=== PATIENT | female | born 1935 | race Two or more races ===

== ENCOUNTER → 2024-07-01 | Outpatient (CLI) | payer MEDICARE, MEDICAID, SELFPAY ==
[2024-07-01 15:17] LABS: Basophils % (Auto) 0 % (0-2.5); Eosinophils # (Auto) 0.2 Thou/mm3 (0.0-0.5); Eosinophils % (Auto) 2 % (0-10); Hemoglobin 10.6 g/dL (12.0-16.0); Immature Granulocytes % (Auto) 1 % (0-0); Lymphocytes # (Auto) 1.1 Thou/mm3 (1.0-4.8); Lymphocytes % (Auto) 12 % (10-50); Mean Corpuscular HGB Conc 33.1 g/dl (31.0-37.0); Mean Corpuscular Hemoglobin 31.2 pg (25.0-35.0); Mean Corpuscular Volume 94 fL (80-100); Monocytes % (Auto) 11 % (0-12); Neutrophils % (Auto) 74 % (37-80); Nucleated Red Blood Cell % 0 /100 WBC (0); Platelet Count 229 Thou/mm3 (140-440); RDW Standard Deviation 50.4 fL (36.4-46.3); White Blood Count 9.4 Thou/mm3 (3.6-11.0)
[2024-07-01 15:38] LABS: Iron 51 mcg/dL (50-170)
[2024-07-01 19:01] LABS: Alanine Aminotransferase 24 U/L (10-49); Albumin, Serum 3.9 gm/dL (3.4-4.8); Alkaline Phosphatase 104 U/L (46-116); Anion Gap 8 (7-16); Aspartate Amino Transferase 34 U/L (0-34); BUN/Creatinine Ratio 33 Ratio (12-20); Bilirubin,Direct < 0.1 mg/dL (0.0-0.3); Bilirubin,Total 0.2 mg/dL (0.3-1.2); Blood Urea Nitrogen 39 mg/dL (9-23); Calcium 9.2 mg/dL (8.3-10.6); Carbon Dioxide 27.2 mMol/L (20.0-31.0); Cardiac Risk Estimate 1.7 RATIO (3.7-5.6); Chloride 106 mMol/L (98-107); Cholesterol 141 mg/dL (132-200); Creatinine (Component) 1.2 mg/dL (0.6-1.3); Glucose 108 mg/dL (74-106); HDL Cholesterol 85 mg/dL (40-60); LDL Cholesterol,Calculated 44 mg/dL (0-130); Osmolality,Calculated 291 (275-295); Potassium 4.8 mMol/L (3.4-5.1); Sodium 141 mMol/L (136-145); Total Protein 6.9 gm/dL (5.7-8.2); Triglycerides 61 mg/dL (30-150); eGFR 44 See Note
== END | disposition home or self-care (01) ==
PROVIDERS: PCP Family Medicine; Referring Provider Family Medicine; Visit Provider Family Medicine
DX: Z00.00 Encounter for general adult medical examination without abnormal findings (principal); I12.9 Hypertensive chronic kidney disease with stage 1 through stage 4 chronic kidney disease, or unspecified chronic kidney disease; N18.9 Chronic kidney disease, unspecified; D50.9 Iron deficiency anemia, unspecified
CPT/HCPCS: 36415; 80048; 80061; 80076; 83540; 85025

== ENCOUNTER 2024-08-06 11:33 | Emergency (ER) | payer MEDICARE, MEDICAID, SELFPAY ==
--- NOTE | 2024-08-06 11:39 | XR_ITS ---
Examination: Abdomen AP single view Technique: AP portable supine abdomen, single view Exam date and time: August 06, 2024 1139 hrs. Indications: Chest pain coughing, unknown position gastrostomy tube Findings: Contrast opacifies the gastrostomy tube and stomach, no leakage of contrast material Impression: Satisfactory position feeding tube
--- NOTE | 2024-08-06 11:39 | PD.EDADULT ---
ED General RME/HPI General Chief complaint: General Adult/Misc Complain Stated complaint: GTUBE REPLACEMENT Time Seen by Provider: 08/06/24 11:36 Arrival date/time: 08/06/24 11:33 No CC: Bleeding around G-tube HPI noticed this morning by family members presents to the ER via EMS who reports stable vital signs. The patient is somnolent, nonverbal. Small amount of bleeding noticed around the Kaplan catheter in the G-tube stoma. Review the medical record show that the G-tube has been replaced with a Kaplan catheter in January 2024. With several replacements prior to that as well. Related Data Home Medications ?Medication ?Instructions ?Recorded ?Confirmed raloxifene 60 mg tablet (Evista) 60 mg feeding tube QAM #0 tabs 10/14/16 12/30/23 simvastatin 40 mg tablet (Zocor) 40 mg feeding tube QPM #0 tabs 10/14/16 12/30/23 gabapentin 300 mg capsule 300 mg PO TID 09/28/22 12/30/23 mirtazapine 15 mg tablet 15 mg feeding tube BID 02/22/23 12/30/23 tramadol 50 mg tablet 100 mg feeding tube Q12H 02/22/23 12/30/23 donepezil 5 mg tablet 10 mg PO QDAY 05/08/23 12/30/23 ferrous sulfate 325 mg (65 mg 325 mg feeding tube QDAY 05/08/23 12/30/23 iron) tablet (FeroSul) misoprostol 200 mcg tablet 200 mcg feeding tube TID 05/08/23 12/30/23 amlodipine 5 mg tablet 2.5 mg PO QDAY 12/23/23 12/30/23 ascorbic acid (vitamin C) 500 mg 500 mg PO QDAY 12/23/23 12/30/23 tablet (Vitamin C) brexpiprazole 0.5 mg tablet 0.5 mg feeding tube QPM 12/23/23 12/30/23 (Rexulti) buspirone 15 mg tablet 15 mg feeding tube TID 12/23/23 12/30/23 fenofibrate 54 mg tablet 54 mg feeding tube QPM 12/23/23 12/30/23 trazodone 50 mg tablet 50 mg feeding tube HS 12/23/23 12/30/23 suvorexant 15 mg tablet (Belsomra) 15 mg PO QDAY 12/30/23 12/30/23 Previous Rx's ?Medication ?Instructions ?Recorded apixaban 5 mg (74 tabs) tablets in 5 mg PO BID #74 tabs 05/23/23 a dose pack ([employer] DVT-PE Treat 30D Start) Held on 12/31/23. Instructions: Resume on 01/01/24. Please hold for 1 day. pantoprazole 40 mg tablet,delayed 40 mg PO QDAY #30 tabs 05/23/23 release (Protonix) Allergies Allergy/AdvReac Type Severity Reaction Status Date / Time No Known Allergies Allergy Verified 12/22/23 16:50 Review of Systems Review of Systems ROS Unobtainable: unobtainable due to mental status Past Medical History Past Medical History NEUROLOGIC: Positive Dementia; Negative Neurological Disorders, Cerebrovascular Accident, Transient Ischemic Attacks (TIA), Alzheimer's Disease, Parkinson's Disease, Brain Tumor, Meningitis, Seizures, Epilepsy, Multiple Sclerosis, Cerebral Palsy, Amyotrophic Lateral Sclerosis (ALS/Marcie Gehrig's), Guillain-[place] Syndrome, Spina Bifida, Paralysis, Peripheral Neuropathy, Bhardwaj's Palsy, Subdural Hematoma, Migraine, Head Trauma, Spinal Cord Injury or Traumatic Brain Injury CARDIAC: Positive Cardiac Disorders, Atherosclerotic Heart Disease, Hypercholesterolemia, Edema (BILAT FEET) and Hypertension; Negative Myocardial Infarction, Cardiac Arrhythmia, Atrial Fibrillation, Angina, Heart Murmur, Coronary Artery Disease, Peripheral Vascular Disease, Aneurysm, Congestive Heart Failure, Congenital Heart Disease, Valvular Heart Disease, Rheumatic Fever, Cardiomyopathy, Pericarditis, Cellulitis, Deep Vein Thrombosis, Hypotension or Varicose Veins RESPIRATORY: Positive Bronchitis and Pneumonia; Negative Chronic Obstructive Pulmonary Disease (COPD), Asthma, Emphysema, Pulmonary Fibrosis, Cystic Fibrosis, Tuberculosis, Pulmonary Embolism, Pulmonary Edema or Sleep Apnea GASTROINTESTINAL: Positive Gastrointestinal Disorders, Gastrointestinal Bleed, Diverticulitis, Ulcer and Gastroesophageal Reflux Disease; Negative Hepatitis, Cirrhosis, Pancreatitis, Celiac Disease, Gall Bladder Disease, Esophageal Varices, Crenshaw's Esophagus, Colitis, Ulcerative Colitis, Diverticulosis, Colorectal Cancer, Irritable Bowel, Crohn's Disease, Obstructive Bowel, Hiatal Hernia, Hemorrhoids or Obesity GENITOURINARY: Positive Genitourinary Disorders (UTI); Negative Renal Disease, Kidney Stones, Polycystic Kidney Disease, Neurogenic Bladder, Inguinal Hernia, Dialysis or Benign Prostatic Hyperplasia REPRODUCTIVE: Positive Previous Pregnancies; Negative Breast Cancer, Endometriosis, Genital Herpes, Gonorrhea, Pelvic Inflammatory Disease, Syphilis or Uterine Prolapse MUSCULOSKELETAL: Positive Musculoskeletal Disorders, Arthritis, Osteoporosis and Fractures (hip sx); Negative Muscular Dystrophy, Myasthenia Gravis, Marfan's Syndrome, Bone Cancer, Rheumatoid Arthritis, Degenerative Disk Disease, Gout, Scoliosis, Carpal Tunnel Syndrome, Fibromyalgia, Degenerative Joint Disease, Osteomyelitis or Poliovirus ENT: Positive Glaucoma, Blind (LEGALLY, SEES OUTLINES) and Deafness ([place]); Negative Cataracts, Retinal Detachment, Macular Degeneration, Ear Infection, Head Trauma or Eye Prosthesis ENDOCRINE: Negative Endocrine Disorders, Diabetes Mellitus Type 1, Diabetes Mellitus Type 2, Hypoglycemia, [place]'s Syndrome, Wharton's Disease, Hyperthyroidism, Hypothyroidism, Parathyroid Disease, Pituitary Disease, Systemic Lupus Erythematosus, Syndrome of Inappropriate Antidiuretic Hormone (SIADH), Adrenal Disease or Graves' Disease HEMATOLOGIC: Positive Blood Disorders and Anemia (IRON); Negative Leukemia, Hemophilia, Thalassemia, Sickle Cell Disease or Clotting Problems PSYCHO/SOCIAL: Positive Depression, Anxiety and Behavior Problems; Negative Psychiatric Problems, Schizophrenia, Recreational Drug Use, Bipolar Disorder, Self-Mutilation, Attention Deficit Disorder, Attention Deficit Hyperactivity Disorder, Depression, Post Traumatic Stress Disorder or Eating Disorder OTHER HISTORY: Positive Hospitalization, Shingles, Falls, Blood Transfusions, Chicken Pox and Cancer; Negative Autoimmune Disease, Down Syndrome, Autism, Developmental Delay, Blood Transfusion Reaction, Anesthesia Reactions, Organ Transplant, Chemotherapy, Radiation Therapy, Hyperbaric Therapy, MRSA, VRSA, Vancomycin-Resistant Enterococci, Human Immunodeficiency Virus (HIV), Measles, Mumps, Rubella (Irish Measles), Pertussis, Clostridium Difficile, Breast Cancer, Cervical Cancer, Colorectal Cancer, Lung Cancer or Ovarian Cancer Family History FAMILY HISTORY: Negative Family Psychiatric Problems, Family Respiratory Disorders, Family Cardiac Disorders, Family Gastrointestinal Problems, Family Cancer, Family Surgery or Family Anesthesia Reaction Surgical History SURGICAL: Positive Abdominal Surgery; Negative Cardiac Surgery, Open Heart Surgery, Coronary Artery Bypass Graft, Valve Replacement, Vascular Surgery, Coronary Stent, Cardiac Catheterization, Pacemaker, Angiogram, Auto Implanted Cardiovert Defib, Carotid Endarterectomy, Endocrine Surgery, Thyroidectomy, Ear Surgery, Tympanostomy Tube, Eye Surgery, Nose Surgery, Oral Surgery, Tonsillectomy, Adenoidectomy, Cochlear Implant, Corneal Transplant, Throat Surgery, Tracheostomy, Gastric Bypass Surgery, Gastrostomy, Bowel Surgery, Nephrectomy, Transurethral Resection, Joint Replacement, Amputation, Open Reduction Internal Fixation, Arthroscopy, Neurologic Surgery, Brain Shunt, Mastectomy, Lumpectomy, Hysterectomy, Tubal Ligation, Section, Vasectomy or Organ Transplant Social History SMOKING STATUS: Never smoker SECOND HAND EXPOSURE: No SUBSTANCE USE: does not use ED Exam Narrative Physical exam: [General: Appears not in any acute distress Head normocephalic HEENT: Within acceptable limits Neck is supple nontender Chest equal chest rise nontender to palpation Respiratory: Clear to auscultation no wheezes crackles or rubs CV: Rate rhythm is regular no murmurs rubs or clicks Abdomen is soft nontender, center upper stoma has a 18 Kaplan emerging from the stoma, there is a small amount of bleeding with a small adipose ball emerging on the left side of the Kaplan catheter. No surrounding erythema or edema Back: No CVA tenderness no spinous process tenderness from cervical spine thoracic and lumbar spine Skin: Intact no petechiae rash induration ulceration or crepitus Extremities: Moving all extremity against resistance cap refill less than 2 seconds neurosensory intact Neuro: Awake alert oriented x3 Glascow coma 15 no focal deficits] Course Quality Measures none Orders Category Date Time Status Apply Skin Barrier Cream BID Care 08/06/24 12:14 Active US venous doppler LE RT Stat Exams 08/06/24 12:06 Completed XR abdomen 1V Stat Exams 08/06/24 11:39 Completed XR abdomen 1V Stat Exams 08/06/24 15:01 Taken CBC Stat Lab 08/06/24 12:50 Received Urinalysis, C/S if Indicated Stat Lab 08/06/24 12:58 Completed Vital Signs Vital signs: Vital Signs Temperature 97.7 F 08/06/24 11:59 Pulse Rate 81 08/06/24 11:59 Respiratory Rate 16 08/06/24 11:59 Blood Pressure 165/86 H 08/06/24 11:59 Pulse Oximetry (%) 100 08/06/24 11:59 Oxygen Delivery Method Room Air 08/06/24 11:59 Procedures -ED Procedure Comment Verbal consent from the power of compliance attorney cannot obtained. Patient paid in the supine position. Old G-tube Kaplan, balloon had already been previously deflated when removed only fragments of the balloon hanging onto the catheter tip. Site was then cleaned, new 16 [place] Kaplan catheter advanced in the stomach without complications gastric contents retrieved. Patient tolerated procedure well dressing applied. MDM Patient data External records reviewed:: [facility] previous records and EMS form Clinical information provided by:: EMS Social determinants that could affect healthcare access:: none Patient has the following chronic illnesses:: On Eliquis anemia hypertension How is presenting disease/condition affected by chronic disease/condition?: uneffected by Evaluation data The following diagnostics were reviewed and interpreted by me:: lab results and radiology exam(s) Lab and/or radiology exams considered but not ordered:: Urine is negative Abdominal x-ray shows that the G-tube is in satisfactory position Interpretation Summary: This Kaplan catheter has been in there since January 2024 providing G-tube nourishment for the patient, the care provider of the patient is insisting to be changed out because it looks black . Although it is in proper position I will change it out. No other acute finding. Repeat ultrasound ultrasound shows that the new G-tube is in satisfactory position as interpreted by me. Medications Medications considered but not ordered:: None Medication administrations:: None Consultations Consultation(s) initiated? (list below): No Diagnosis Differential Diagnosis ED Complaint MDM: G-tube failure G2 occlusion UTI Most likely diagnosis given after review of the tests above:: G-tube changed out Admission Indicated Admission indicated?: not indicated Explain why admission is indicated or not indicated:: Stable for discharge Admission Request Was there a request for admission?: No Disposition Plan Disposition Plan: Discharge Discharge Attestation Discharge Attestation: The patient and all family members were given an opportunity to ask questions and understood the discharge instructions. Discharge instructions specifically effects, indications for sooner follow up or return to the emergency department, and the expected course of current diagnosis. Patient condition: Stable Medical Decision Making Differential Diagnosis Differential Diagnosis: G-tube failure G2 occlusion UTI Lab Data 08/06/24 12:50 Labs: Lab Results 08/06/24 Range/Units 12:58 Ur Collection Type Catheter Urine Color Lt-Yellow (Lt Yel-Yel) Urine Clarity Clear (Clear/Hazy) Urine pH 6.5 (5.0-7.0) Ur Specific [place] 1.006 (1.001-1.035) Urine Protein Negative (Neg - Trace) Urine Glucose (UA) Trace (Negative) Urine Ketones Negative (Negative) Urine Blood Negative (Negative) Urine Nitrite Negative (Negative) Urine Bilirubin Negative (Negative) Urine Urobilinogen (Auto) Negative (0.0-1.0) mg/dL Ur Leukocyte Esterase Negative (Negative) Urine RBC < 1 (0-3) /hpf Urine WBC 4 (0-5) /hpf Ur Squamous Epith Cells < 1 (0-5) /hpf Urine Bacteria None (None) Ur Culture Indicated? Not Indicated Discharge Plan Plan Patient Disposition: HOME (Self Care) Patient condition on transfer: Stable Prescriptions/Referrals Prescriptions/Med Rec: No Action simvastatin [Zocor] 40 MG tablet 40 mg feeding tube QPM Qty: 0 raloxifene [Evista] 60 MG tablet 60 mg feeding tube QAM Qty: 0 tramadol 50 mg tablet 100 mg feeding tube Q12H mirtazapine 15 mg tablet 15 mg feeding tube BID donepezil 5 mg tablet 10 mg PO QDAY ferrous sulfate [FeroSul] 325 mg (65 mg iron) Tablet 325 mg feeding tube QDAY misoprostol 200 mcg tablet 200 mcg feeding tube TID Eliquis DVT-PE Treat 30D Start 5 mg (74 tabs) tablets,dose pack 5 mg PO BID Qty: 74 0RF Rx Instructions: ON HOLD TILL 12/31/23, DUE TO KNEE SWELLING take 10 mg po bid for 7 days, then 5 mg po bid pantoprazole [Protonix] 40 mg tablet,delayed release (DR/EC) 40 mg PO QDAY Qty: 30 0RF gabapentin 300 mg Capsule 300 mg PO TID Rx Instructions: taken PRN for pain per daughter trazodone 50 mg tablet 50 mg feeding tube HS ascorbic acid (vitamin C) [Vitamin C] 500 mg Tablet 500 mg PO QDAY buspirone 15 mg tablet 15 mg feeding tube TID fenofibrate 54 mg tablet 54 mg feeding tube QPM Rexulti 0.5 mg tablet 0.5 mg feeding tube QPM amlodipine 5 mg tablet 2.5 mg PO QDAY Belsomra 15 mg tablet 15 mg PO QDAY Referrals: Gilbert Hendricks MD [Primary Care Provider] - In 1 week Problem List Clinical Impression: Gastrostomy tube dysfunction Patient/Caregiver Discharge Instructions Print Language: Mohawk Stand Alone Forms: [employer] Award Info., Work/School Release, Patient Portal Info Letter PA/RN NEUROLOGY Supervising Physician PA/RN NEUROLOGY Supervising Physician: Alphonse Galvin ENP
[2024-08-06 11:47] VITALS: BMI 22.2
[2024-08-06 11:59] VITALS: BP 165/86; PULSE 81; RESP 16; TEMP 36.5; O2SAT 100
--- NOTE | 2024-08-06 12:06 | XR_ITS ---
Examination: Duplex scan of the lower extremity, unilateral right Date and time of exam: August 06, 2024 1402 hrs. Indications: Right side pain and swelling beginning 4 days ago Technique: Duplex scan of the extremity veins using B-mode/grayscale imaging and Doppler spectral analysis and color flow Attention is directed to internal echogenicity, compression and augmentation involving these veins, color flow assessment, spectral analysis Findings: Major deep venous structures in the extremity demonstrate normal course and caliber. There is no evidence of deep vein thrombosis. Normal color flow and spectral analysis Impression: Negative for DVT..
[2024-08-06 13:26] LABS: Collection Type, Urine Catheter
[2024-08-06 13:32] LABS: Bilirubin,Urine Negative (Negative); Blood,Urine Negative (Negative); Clarity,Urine Clear (Clear/Hazy); Color,Urine Lt-Yellow (Lt Yel-Yel); Culture Indicated,Urine Not Indicated; Glucose, Urine Trace (Negative); Ketones,Urine Negative (Negative); Leukocyte Esterase,Urine Negative (Negative); Nitrite,Urine Negative (Negative); PH,Urine 6.5 (5.0-7.0); Protein,Urine Negative (Neg - Trace); RBC,Urine < 1 /hpf (0-3); Specific Gravity,Urine 1.006 (1.001-1.035); Squamous Epithelial Cell,Urine < 1 /hpf (0-5); Urobilinogen,Urine Negative mg/dL (0.0-1.0); WBC,Urine 4 /hpf (0-5)
[2024-08-06 13:46] VITALS: BP 152/72; PULSE 73; RESP 18; TEMP 36.9; O2SAT 95
--- NOTE | 2024-08-06 15:01 | XR_ITS ---
Examination: Abdomen AP single view Technique: AP portable supine abdomen, single view Exam date and time: August 06, 2024 1519 hrs. Indications: Unknown position gastrostomy tube Findings: Contrast opacifies gastrostomy tube stomach and bowel, no leakage of contrast material noted Impression: Gastrostomy tube in stomach satisfactory position
--- NOTE | 2024-08-06 15:08 | PC.NURSE ---
pt able to ambulate without assistance. pt tolerated well. made aware
[2024-08-06 15:33] VITALS: BP 130/66; PULSE 76; RESP 18; TEMP 36.8; O2SAT 100
[2024-08-06 15:35] LABS: Basophils % (Auto) 0 % (0-2.5); Eosinophils # (Auto) 0.2 Thou/mm3 (0.0-0.5); Eosinophils % (Auto) 1 % (0-10); Hematocrit 22.1 % (36.0-46.0); Immature Granulocytes % (Auto) 2 % (0-0); Immature Granulocytes Auto 0.32 Thou/mm3 (0.00-0.00); Lymphocytes # (Auto) 1.3 Thou/mm3 (1.0-4.8); Lymphocytes % (Auto) 9 % (10-50); Mean Corpuscular Hemoglobin 31.2 pg (25.0-35.0); Mean Corpuscular Volume 94 fL (80-100); Monocytes # (Auto) 1.5 Thou/mm3 (0.0-0.8); Monocytes % (Auto) 11 % (0-12); Neutrophils # (Auto) 10.6 Thou/mm3 (1.8-7.7); Neutrophils % (Auto) 76 % (37-80); Nucleated Red Blood Cell # 0.12 Thou/mm3 (0.00-0.00); Nucleated Red Blood Cell % 1 /100 WBC (0); Platelet Count 138 Thou/mm3 (140-440); RDW Standard Deviation 50.4 fL (36.4-46.3); Red Blood Count 2.34 Miln/mm3 (4.00-5.20)
[2024-08-06 15:38] LABS: Hemoglobin 7.3 g/dL (12.0-16.0)
== END 2024-08-06 15:43 | disposition home or self-care (01) ==
PROVIDERS: Registered Nurse General Practice; Emergency Provider Emergency Medicine; PCP Family Medicine
DX: K94.23 Gastrostomy malfunction (principal); R40.0 Somnolence; M79.89 Other specified soft tissue disorders; M79.661 Pain in right lower leg
CPT/HCPCS: 43762; 36415; 74018; 81001; 85025; 93971; 99284

== ENCOUNTER 2024-08-22 10:05 | Inpatient (IN) | payer MEDICARE, MEDICAID, SELFPAY ==
[2024-08-22] VITALS (65 sets, daily range): BP systolic 84–155; BP diastolic 29–95; PULSE 48–103; RESP 11–29; TEMP 33.4–36.7; O2SAT 93–100; BMI 25.2
[2024-08-22 10:44] LABS: Basophils % (Auto) 0 % (0-2.5); Eosinophils % (Auto) 0 % (0-10); Immature Granulocytes % (Auto) 3 % (0-0); Immature Granulocytes Auto 0.44 Thou/mm3 (0.00-0.00); Lymphocytes # (Auto) 0.7 Thou/mm3 (1.0-4.8); Lymphocytes % (Auto) 4 % (10-50); Mean Corpuscular HGB Conc 28.8 g/dl (31.0-37.0); Mean Corpuscular Hemoglobin 31.1 pg (25.0-35.0); Mean Corpuscular Volume 108 fL (80-100); Monocytes # (Auto) 1.5 Thou/mm3 (0.0-0.8); Monocytes % (Auto) 10 % (0-12); Neutrophils # (Auto) 12.9 Thou/mm3 (1.8-7.7); Neutrophils % (Auto) 83 % (37-80); Nucleated Red Blood Cell # 0.53 Thou/mm3 (0.00-0.00); Nucleated Red Blood Cell % 3 /100 WBC (0); Platelet Count 141 Thou/mm3 (140-440); RDW Standard Deviation 82.2 fL (36.4-46.3); Red Blood Count 1.22 Miln/mm3 (4.00-5.20); White Blood Count 15.6 Thou/mm3 (3.6-11.0)
[2024-08-22 10:48] LABS: Beta Hydroxybutyrate 0.4 mmol/L (<0.6)
[2024-08-22 10:50] LABS: Hematocrit 13.2 % (36.0-46.0); Hemoglobin 3.8 g/dL (12.0-16.0)
--- NOTE | 2024-08-22 10:55 | PD.EDNV ---
Nausea/Vomit./Diarrhea-RME/HPI General Chief complaint: Nausea/Vomiting/Diarrhea Stated complaint: N/V Arrival date/time: 08/22/24 10:05 RME / HPI RME / HPI Narrative: Patient 88-year-old demented lady who is G-tube dependent comes in with nausea vomiting diarrhea. No other information was initially present. At 1145 I daughter is present tells me the patient vomited a clot of blood. That she is a full code. And that she recent had her feeding tube replaced and that the tube was black. Patient response to Hungarian-language with the [id number] present but unable to provide any history. Related Data Home Medications ?Medication ?Instructions ?Recorded ?Confirmed raloxifene 60 mg tablet (Evista) 60 mg feeding tube QAM #0 tabs 10/14/16 12/30/23 simvastatin 40 mg tablet (Zocor) 40 mg feeding tube QPM #0 tabs 10/14/16 12/30/23 gabapentin 300 mg capsule 300 mg PO TID 09/28/22 12/30/23 mirtazapine 15 mg tablet 15 mg feeding tube BID 02/22/23 12/30/23 tramadol 50 mg tablet 100 mg feeding tube Q12H 02/22/23 12/30/23 donepezil 5 mg tablet 10 mg PO QDAY 05/08/23 12/30/23 ferrous sulfate 325 mg (65 mg 325 mg feeding tube QDAY 05/08/23 12/30/23 iron) tablet (FeroSul) misoprostol 200 mcg tablet 200 mcg feeding tube TID 05/08/23 12/30/23 amlodipine 5 mg tablet 2.5 mg PO QDAY 12/23/23 12/30/23 ascorbic acid (vitamin C) 500 mg 500 mg PO QDAY 12/23/23 12/30/23 tablet (Vitamin C) brexpiprazole 0.5 mg tablet 0.5 mg feeding tube QPM 12/23/23 12/30/23 (Rexulti) buspirone 15 mg tablet 15 mg feeding tube TID 12/23/23 12/30/23 fenofibrate 54 mg tablet 54 mg feeding tube QPM 12/23/23 12/30/23 trazodone 50 mg tablet 50 mg feeding tube HS 07/14/24 07/21/24 suvorexant 15 mg tablet (Belsomra) 15 mg PO QDAY 12/30/23 12/30/23 Previous Rx's ?Medication ?Instructions ?Recorded apixaban 5 mg (74 tabs) tablets in 5 mg PO BID #74 tabs 05/23/23 a dose pack (CamGSM DVT-PE Treat 30D Start) Held on 12/31/23. Instructions: Resume on 01/01/24. Please hold for 1 day. pantoprazole 40 mg tablet,delayed 40 mg PO QDAY #30 tabs 05/23/23 release (Protonix) Allergies Allergy/AdvReac Type Severity Reaction Status Date / Time No Known Allergies Allergy Verified 12/22/23 16:50 Review of Systems Review of Systems ROS Unobtainable: unobtainable due to mental status (Patient is demented) Past Medical History Past Medical History NEUROLOGIC: Positive Dementia CARDIAC: Positive Cardiac Disorders, Atherosclerotic Heart Disease, Hypercholesterolemia, Edema and Hypertension RESPIRATORY: Positive Bronchitis and Pneumonia GASTROINTESTINAL: Positive Gastrointestinal Disorders, Gastrointestinal Bleed, Diverticulitis, Ulcer, Hemorrhoids and Gastroesophageal Reflux Disease GENITOURINARY: Positive Genitourinary Disorders REPRODUCTIVE: Positive Previous Pregnancies MUSCULOSKELETAL: Positive Musculoskeletal Disorders, Arthritis, Osteoporosis and Fractures ENT: Positive Glaucoma, Blind and Deafness HEMATOLOGIC: Positive Blood Disorders and Anemia PSYCHO/SOCIAL: Positive Depression, Anxiety and Behavior Problems OTHER HISTORY: Positive Hospitalization, Shingles, Falls, Blood Transfusions, Chicken Pox and Cancer Family History FAMILY HISTORY: Negative Family Psychiatric Problems, Family Respiratory Disorders, Family Cardiac Disorders, Family Gastrointestinal Problems, Family Cancer, Family Surgery or Family Anesthesia Reaction Surgical History SURGICAL: Positive Abdominal Surgery (G-TUBE) Social History SMOKING STATUS: Unknown if ever smoked SECOND HAND EXPOSURE: No SUBSTANCE USE: does not use ED Exam Narrative Physical exam: Physical Exam: General: The vital signs were reviewed. Patient is opens eyes responds to Hungarian make some words that are hard to understand she interacts and engages her environment. The patient is non-toxic, in no apparent distress and appears healthy with a patent airway, no respiratory distress and has no apparent circulatory problems. Head & Scalp: Normocephalic, atraumatic. Face: Appears normal and is without lesions, deformity. Ears: Left external pinna appears normal. Right external pinna appears normal. Eyes: The sclera is anicteric. No obvious photophobia. The Left and Right Orbit/Lid/Conjunctiva appears normal without swelling, discoloration or injection. Nose: The nose is without deformity, discharge or tenderness; Throat: Appears normal. The mucous membranes are pink and moist without exudates, redness or mass seen. The tongue appears normal. Neck: The neck is supple and no apparent mass or adenopathy. Chest: The chest wall is normal in size and symmetry and has no chest wall tenderness or crepitus. The patient displays normal ventilator effort without retractions, accessory muscle use and has adequate air movement bilaterally with no wheezes and no rales. Cardiovascular: Regular rate and rhythm; No murmurs, rubs, or gallops; Gastrointestinal: The abdomen appears normal. Feeding tube is present and the site looks clean. No obvious hernias or mass. The abdomen is soft and benign, non-distended, with no pain, no guarding and no rebound tenderness. Bowel sounds are present and normal sounding. No CVA tenderness. Genitourinary: Rectal showed hematochezia and some pasty cream that is on her bottom side. There is not a large volume of blood present there was strongly guaiac positive. Back/Spine: Normal inspection Extremities/Musculoskeletal/lymphatic: The bilateral upper and lower extremities are warm. There is no evidence of arterial insufficiency. There is no evidence of venous insufficiency/edema. The patient spontaneously moves bilateral upper and lower extremities with no pain and no limitation of movement. There is no apparent, injury or trauma. Skin: The skin is warm, dry and intact. No rashes. No petechia. No purpura. No abnormal bruising. The color is appropriate with no cyanosis. Mental status/Psychiatric: Mental status is baseline dementia Neurological: The patient is awake, alert, interactive, moaning and mumbling intermittently The gait, station and balance were not tested due to patient is normally bedbound. Course Quality Measures none Orders Category Date Time Status Bedside Blood Glucose NOW Care 08/22/24 10:28 Active EKG (ED ONLY) *Do not use* NOW Care 08/22/24 11:19 Completed In and Out Catheter X1 Care 08/22/24 10:54 Completed Insert IV NOW Care 08/22/24 10:20 Active Miscellaneous Nursing Order X1 Care 08/22/24 11:55 Active Transfuse,blood/blood products NEEDED Care 08/22/24 10:55 Active Consult to Gastroenterology Stat Cons 08/22/24 11:[address] chest abdomen pelvis wo Stat Exams 08/22/24 11:55 Ordered EKG (ED Only) Stat Exams 08/22/24 11:19 Draft XR chest 1V portable Stat Exams 08/22/24 11:55 Completed BNP [B-Type Natriuretic Peptide] Stat Lab 08/22/24 10:33 Completed Beta Hydroxybutyrate Stat Lab 08/22/24 10:33 Completed Blood Culture (Lab) Stat Lab 08/22/24 11:13 Received CBC Stat Lab 08/22/24 10:33 Completed CBC Stat Lab 08/22/24 11:13 Completed Comprehensive Metabolic Panel Stat Lab 08/22/24 10:33 Completed Ferritin Stat Lab 08/22/24 10:33 Completed Folate Stat Lab 08/22/24 10:55 Completed Iron Stat Lab 08/22/24 10:33 Completed Lactate (Lactic Acid) Stat Lab 08/22/24 10:33 Completed PT [Prothrombin Time with INR] Stat Lab 08/22/24 10:33 Completed PTT [Partial Thromboplastin Time] Stat Lab 08/22/24 10:33 Completed Packed Cells [Red Blood Cells] Stat Lab 08/22/24 11:13 Results Path Review Blood Smear Stat Lab 08/22/24 10:33 Completed Procalcitonin Stat Lab 08/22/24 10:33 Completed Total Iron Binding Capacity Stat Lab 08/22/24 10:33 Completed Type and Screen Stat Lab 08/22/24 11:13 Results Urinalysis Stat Lab 08/22/24 11:01 Completed Urine Culture Stat Lab 08/22/24 11:01 Received Vitamin B12 Stat Lab 08/22/24 10:55 Completed Pantoprazole Inj [Protonix Inj] Med 08/22/24 12:14 Discontinued 40 mg IVP X1 ONE Ringers Lactated 1000 ml [Lactated Ringers] 1,000 ml Med 08/22/24 11:56 Discontinued IV 2,000 mls/hr cefTRIAXone [Rocephin] 1,000 mg Med 08/22/24 11:54 Discontinued SODIUM CHLORIDE 0.9% (Popper) [Ns 0.9% (P)] 50 ml IV X1 Vital Signs Vital signs: Vital Signs Blood Pressure 155/63 H 08/22/24 10:22 Pulse Oximetry (%) 100 08/22/24 10:22 Pulse ox is 100% on 2L nasal cannula which is adequate. Nausea/Vomiting/Diarrhea MDM Narrative MDM Narrative:: Patient 88-year-old lady who comes in vomiting blood nausea vomiting who is bedbound with a G-tube who is white count came back at 14.6 hemoglobin is 3.7 MCV is high at 112. Therefore she has a severe sodium is 130 potassium is 6.0 chloride 101 CO2 is 18.1 anion gap is 11 BUN is elevated 90 creatinine is 2.7 consistent with acute kidney injury. Glucose elevated 461 osmolality is high at 308 lactic acid elevated 5.4. Procalcitonin slightly elevated 0.0 0.56. Urinalysis 77 white cells. A twelve-lead EKG was done which reveals a sinus bradycardia rate [address] elevation CO seen. There is a right bundle branch pattern in V1. Because of the hematochezia and the severe anemia I called Dr. Arjun PORTILLO on-call and he will be consulting. Also patient has a UTI and technically could be septic since the lactic acid is elevated. Go ahead and give her a couple liters of fluid while awaiting antibiotics to cover the UTI. Also septic alert was called in a delayed fashion. I then spoke with Dr. Vera the hospitalist who will be admitting. Dr. Vera came down saw the patient and they will be admitting. PT came back greater than 63 and she evidently is on blood thinners. Asked the nurse to contact Dr. Vera to address this. Patient data External records reviewed:: [facility] previous records Clinical information provided by:: EMS and family Social determinants that could affect healthcare access:: other (specify) (Dementia G-tube feed dependent) Patient has the following chronic illnesses:: Dementia CHF How is presenting disease/condition affected by chronic disease/condition?: exacerbated by Evaluation data The following diagnostics were reviewed and interpreted by me:: EKG tracing(s) (See MDM) and other (specify) (See MDM for discussion of labs and x-ray) Lab and/or radiology exams considered but not ordered:: None Interpretation Summary: See MDM above Medications / Prescriptions Medications / Prescriptions considered but not ordered:: See MDM Medication administrations:: Medication Administration History Dextrose (Dextrose 50%-Water Inj 50 Ml Syringe) 50 ml IV Q15MIN PRN PRN Reason: BG <50 OR BG <70 & pt unresponsive Stop: 09/21/24 12:22 Dextrose (Dextrose 50%-Water Inj 50 Ml Syringe) 25 ml IV Q15MIN PRN PRN Reason: BG 50-70 responsive npo pt Stop: 09/21/24 12:25 Glucagon (Glucagon Inj 1 Mg Vial) 1 mg IM Q15MIN PRN PRN Reason: BG <70, and no IV access Dextrose (D10w 1000 Ml) 1,000 mls @ 100 mls/hr IV .Q10H MANUEL Stop: 08/22/24 22:29 Ceftriaxone Sodium 1,000 mg/ (Sodium Chloride) 50 mls @ 100 mls/hr IV QDAY MANUEL Stop: 08/30/24 08:59 Lactated Ringer's (Lactated Ringers) 1,000 mls @ 999 mls/hr IV .Q1H1M ONE Stop: 08/22/24 15:09 Albumin Human (Albuminar-25 Ivpb) 25 gm in 100 mls @ 100 mls/min IV PRN PRN PRN Reason: DIALYSIS Insulin Glargine (Insulin Glargine (Lantus) 5 Unit/0.05 Ml (Per 5 Units)) 10 unit SC HS MANUEL Stop: 09/21/24 20:59 Insulin Human Lispro (Insulin Lispro (Admelog) 1 Unit/0.01 Ml Unit) 0 unit SC Q6H MANUEL; Protocol Stop: 09/21/24 12:29 Pantoprazole Sodium (Pantoprazole Inj 40 Mg Vial) 40 mg IVP Q12HR MANUEL Stop: 09/21/24 20:59 Discontinued Medications Albuterol/Ipratropium (Albuterol/Ipratropium (Duoneb) Rt Leni 3 Ml Nebu) 10 ml INH X1 ONE Stop: 08/22/24 12:27 Last Admin: 08/22/24 12:56 Dose: 10 ml Documented By: HALIE Calcium Gluconate (Calcium Gluconate 10% Inj 1 Gm/10 Ml Vial) 1 gm IV X1 ONE Stop: 08/22/24 12:27 Last Admin: 08/22/24 13:56 Dose: 1 gm Documented By: DB Dextrose (Dextrose 50%-Water Inj 50 Ml Syringe) 25 ml IV Q15MIN PRN PRN Reason: BG 50-70 responsive npo pt Stop: 09/21/24 12:22 Dextrose (Dextrose 50%-Water Inj 50 Ml Syringe) 50 ml IV X1 ONE Stop: 08/22/24 12:27 Last Admin: 08/22/24 13:52 Dose: 50 ml Documented By: RSOALBA Glucagon (Glucagon Inj 1 Mg Vial) 1 mg IM Q15MIN PRN PRN Reason: BG <70, and no IV access Ceftriaxone Sodium 1,000 mg/ (Sodium Chloride) 50 mls @ 100 mls/hr IV X1 ONE Stop: 08/22/24 12:23 Last Admin: 08/22/24 14:59 Dose: 100 mls/hr Documented By: ROSALBA Lactated Ringer's (Lactated Ringers) 1,000 mls @ 2,000 mls/hr IV .Q30M ONE Stop: 08/22/24 12:25 Last Admin: 08/22/24 13:21 Dose: 2,000 mls/hr Documented By: ROSALBA Insulin Human Regular (Insulin Hum Regular 1 Unit/0.01 Ml (Per Unit)) 0 unit SC Q6H MANUEL; Protocol Stop: 09/21/24 12:29 Insulin Human Regular (Insulin Hum Regular 1 Unit/0.01 Ml (Per Unit)) 5 unit IV X1 ONE Stop: 08/22/24 12:27 Last Admin: 08/22/24 13:27 Dose: Not Given Documented By: ROSALBA Non-Admin Reason: Cancelled by Provider Insulin Human Regular (Insulin Hum Regular 1 Unit/0.01 Ml (Per Unit)) 10 unit IV X1 ONE Stop: 08/22/24 13:26 Last Admin: 08/22/24 13:51 Dose: 10 unit Documented By: ROSALBA Co-signed By: KALPANA Pantoprazole Sodium (Pantoprazole Inj 40 Mg Vial) 40 mg IVP X1 ONE Stop: 08/22/24 12:15 Last Admin: 08/22/24 14:07 Dose: 40 mg Documented By: ROSALBA Sodium Bicarbonate (Sodium Bicarb Inj 8.4% 1 Meq/Ml 50 Ml Vial) 50 meq IV X1 ONE Stop: 08/22/24 12:27 Last Admin: 08/22/24 13:56 Dose: 50 meq Documented By: ROSALBA Sodium Bicarbonate (Sodium Bicarb Inj 8.4% Syr 50 Ml Syringe) 50 ml IV X1 ONE Stop: 08/22/24 13:39 Last Admin: 08/22/24 13:58 Dose: Not Given Documented By: ROSALBA Non-Admin Reason: Duplicate Medication on eMAR See above Consultations Consultation(s) initiated? (list below): Yes Consultation #1 (Physician, Specialty, Details): I spoke with GI Dr. Díaz as noted above. Consultation #2 (Physician, Specialty, Details): I spoke with hospitalist Dr. Vera as noted above. Diagnosis Nausea Differential Diagnosis: other (GI bleed ulcers colitis, urinary tract infection) Most likely diagnosis given after review of the tests above:: Patient has vomiting diarrhea for multiple possible causes with hematochezia severe anemia acute renal failure or acute kidney injury and elevated lactic acid. Admission Indicated Admission indicated?: indicated Admission Request Was there a request for admission?: Yes Admission Attestation Admission request attestation: Discussed case with [] from Hospitalist service regarding admission. Discussed patients ED course, exam findings, labs, and radiology results. The Hospitalist [agrees,declines] to accept the patient for admission. Disposition Plan Disposition Plan: Admit Critical Care Time Critical Care Time Critical Care Time: Yes Total Critical Care Time (min.): 45 Attestation: The high probability of sudden, clinically significant deterioration in the patient's condition required the highest level of my preparedness to intervene urgently. The services I provided to this patient were to treat and/or prevent clinically significant deterioration. Services included the following: chart data review, reviewing nursing notes and/or old charts, documentation time, health analytics consultant collaboration regarding findings and treatment options, medication orders and management, direct patient care, vital sign assessments and ordering, interpreting and reviewing diagnostic studies and lab tests. Aggregate critical care time includes only time during which I was engaged in work directly related to the patient's care, as described above, whether at bedside or elsewhere in the Emergency Department. It did not include time spent performing other reported procedures or the services of residents, students, nurses or physician assistants. Discharge Plan Plan Patient Disposition: Admit Acute Care w/in Hospital Disposition Comment: Hospitalist admit Dr. Díaz to consult Problem List Clinical Impression: Severe anemia, Acute kidney injury, Urinary tract infection, Elevated lactic acid level, Hematochezia, Dementia, Gastrostomy tube dependent, Congestive heart failure, Anemia, macrocytic
[2024-08-22 10:59] LABS: Lactate (Lactic Acid) 5.4 mMol/L (0.4-2.0)
[2024-08-22 11:07] LABS: Collection Type, Urine Catheter
[2024-08-22 11:15] LABS: Bacteria,Urine Rare; Bilirubin,Urine Negative (Negative); Blood,Urine Negative (Negative); Clarity,Urine Turbid (Clear/Hazy); Color,Urine Yellow (Lt Yel-Yel); Glucose, Urine Negative (Negative); Hyaline Casts,Urine 1 /hpf (0-1); Ketones,Urine Negative (Negative); Leukocyte Esterase,Urine Positive (Negative); Nitrite,Urine Negative (Negative); Protein,Urine Trace (Neg - Trace); RBC,Urine 3 /hpf (0-3); Specific Gravity,Urine 1.016 (1.001-1.035); Squamous Epithelial Cell,Urine 1 /hpf (0-5); WBC,Urine 77 /hpf (0-5)
[2024-08-22 11:19] LABS: Alanine Aminotransferase 52 U/L (10-49); Albumin, Serum 2.9 gm/dL (3.4-4.8); Albumin/Globulin Ratio 1.1 (1.2-2.2); Alkaline Phosphatase 135 U/L (46-116); Anion Gap 11 (7-16); Aspartate Amino Transferase 58 U/L (0-34); BUN/Creatinine Ratio 33 Ratio (12-20); Bilirubin,Total 1.1 mg/dL (0.3-1.2); Blood Urea Nitrogen 90 mg/dL (9-23); Calcium 8.2 mg/dL (8.3-10.6); Calcium (Corrected) 9.1 mg/dL (8.5-10.1); Carbon Dioxide 18.1 mMol/L (20.0-31.0); Chloride 101 mMol/L (98-107); Creatinine (Component) 2.7 mg/dL (0.6-1.3); Estimated Creatinine Clearance 12.8 mL/min (>60); Globulin 2.7 gm/dL (2.3-3.5); Osmolality,Calculated 308 (275-295); Procalcitonin 0.56 ng/ml (0.0-0.49); Sodium 130 mMol/L (136-145); Total Protein 5.6 gm/dL (5.7-8.2); eGFR 17 See Note
--- NOTE | 2024-08-22 11:19 | EKG_ITS ---
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
[2024-08-22 11:20] LABS: B-Type Natriuretic Peptide 391 pg/mL (0-100)
[2024-08-22 11:22] LABS: Glucose 461 mg/dL (74-106)
[2024-08-22 11:26] LABS: Basophils % (Auto) 0 % (0-2.5); Eosinophils % (Auto) 0 % (0-10); Immature Granulocytes % (Auto) 2 % (0-0); Immature Granulocytes Auto 0.33 Thou/mm3 (0.00-0.00); Lymphocytes # (Auto) 0.6 Thou/mm3 (1.0-4.8); Lymphocytes % (Auto) 4 % (10-50); Mean Corpuscular HGB Conc 28.2 g/dl (31.0-37.0); Mean Corpuscular Hemoglobin 31.6 pg (25.0-35.0); Mean Corpuscular Volume 112 fL (80-100); Monocytes # (Auto) 1.4 Thou/mm3 (0.0-0.8); Monocytes % (Auto) 10 % (0-12); Neutrophils # (Auto) 12.3 Thou/mm3 (1.8-7.7); Neutrophils % (Auto) 84 % (37-80); Nucleated Red Blood Cell # 0.45 Thou/mm3 (0.00-0.00); Nucleated Red Blood Cell % 3 /100 WBC (0); Platelet Count 127 Thou/mm3 (140-440); RDW Standard Deviation 82.3 fL (36.4-46.3); Red Blood Count 1.17 Miln/mm3 (4.00-5.20); White Blood Count 14.6 Thou/mm3 (3.6-11.0)
[2024-08-22 11:37] LABS: Hematocrit 13.1 % (36.0-46.0); Hemoglobin 3.7 g/dL (12.0-16.0)
--- NOTE | 2024-08-22 11:55 | XR_ITS ---
Examination: CT chest, without intravenous contrast. CT abdomen, without intravenous contrast. CT pelvis, without intravenous contrast. 2-D sagittal and coronal reconstructions. 3-D reconstructions. Date and time of exam:August 22, 2024 at 11:30 PM Indications gastrointestinal bleeding today CTDI vol (mgy) 11 DLP (MGycm)7 Technique: Multiple CT images, 3.0 mm slice thickness, obtained chest, abdomen, pelvis, with the high-resolution 64 slice scanner.. Sagittal and coronal 2-D reconstructions are obtained. 3-D reconstructions Low dose protocols were performed. One or more of the following dose reduction techniques were used; automated exposure control, adjustment of the mA and/or KV according to patient size, use of iterative reconstruction technique. Findings: No thoracic aortic tumors dilatation Pulmonary artery segments are not enlarged No pneumonia, significant vascular congestion with small pleural effusions Stool versus Absent gallbladder, common bile duct 10 mm Liver irregular in contour, anasarca Feeding tube in stomach No hydronephrosis Normal appendix Aorta normal size Diffuse wall thickening involving the colon No diverticulitis Rectal tube Urinary bladder contracted around a Kaplan catheter Significant osteopenia Impression: Mild heart failure Cirrhosis versus primary hepatocellular disease, anasarca Extrahepatic biliary tract dilatation, recommend hepatic sonography follow-up Diffuse hepatic colopathy
--- NOTE | 2024-08-22 11:55 | XR_ITS ---
EXAMINATION: XR chest 1V portable ORDERING PROVIDER: Otilio Fermin MD HISTORY: SOB TECHNIQUE: 2 portable AP radiograph of the chest. COMPARISON: 12/21/2023, chest radiographs. FINDINGS: Lines and Tubes: Overlying monitoring leads. Lungs: Increased interstitial markings. No consolidation. Linear airspace markings right lateral lower lung in the expected region of the minor fissure. Pleura: No pneumothorax. As above. Cardiomediastinal Silhouette: Moderate cardiomegaly. Uncoiled aorta. Soft Tissues/Bones: Probable gastrostomy tube. Right upper quadrant surgical clips. Interval healing changes of malalignment left midclavicular fracture. Moderate dextroconvex curvature of the lumbar spine. IMPRESSION: Positive fluid balance with probable trace fluid in the right minor fissure. Congestive heart failure pattern.
[2024-08-22 12:02] LABS: Ferritin 382 ng/mL (7.3-270.7); Iron 44 mcg/dL (50-170); Total Iron Binding Capacity 342 mcg/dL (250-425)
[2024-08-22 12:10] LABS: Folate > 24.00 ng/mL (>5.38); Vitamin B12 > 2000 pg/mL (211-911)
[2024-08-22] MEDS: ALBUTEROL/IPRATROPIUM (Duoneb) RT SOL 3 ML NEBU 10 ML INH (12:56)
[2024-08-22 13:13] LABS: Potassium 6.3 mMol/L (3.4-5.1)
[2024-08-22 13:19] LABS: Misc Send Out* See Sep Rpt
[2024-08-22] MEDS: RINGERS LACTATED 1000 ML 1,000 ML 2000 ML IV (13:21)
[2024-08-22 13:38] LABS: Reflex Lactate? Y
[2024-08-22] MEDS: INSULIN HUM REGULAR 1 UNIT/0.01 ML (PER UNIT) 10 UNIT IV ×2 (13:51→17:43)
[2024-08-22] MEDS: DEXTROSE 50%-WATER INJ 50 ML SYRINGE IV (13:52)
[2024-08-22] MEDS: SODIUM BICARB INJ 8.4% 1 mEq/ML 50 ML VIAL 50 MEQ IV (13:56)
[2024-08-22] MEDS: CALCIUM GLUCONATE 10% INJ 1 GM/10 ML VIAL IV (13:56)
[2024-08-22] MEDS: PANTOPRAZOLE INJ 40 MG VIAL IVP (14:07)
[2024-08-22 14:09] LABS: Prothrombin Time > 63.0 Seconds (9.0-12.2)
[2024-08-22 14:12] LABS: Beta Hydroxybutyrate 0.4 mmol/L (<0.6)
[2024-08-22 14:13] LABS: Path Review Blood Smear Sent to Pathologist
[2024-08-22 14:15] LABS: Lactic Acid, 3 HR 5.1 mMol/L (0.4-2.0)
--- NOTE | 2024-08-22 14:19 | PC.CC ---
Patient is a 88 year old female who presents to the Emergency Department for GI Bleed/Hematochezia. [employer] student completed assessment with daughter in law, Kenisha Blanca ), who was at beside as patient is not alert and oriented. Daughter in law confirmed information on demographics. She stated the patient ambulates using a wheelchair and is currently on a feeding tube. She stated the patient currently lives with her , Chaparro, but she is the one that helps the patient complete their ADL's. The patients primary care provider is Dr. Gilbert Hendricks and pharmacy [facility] preference is [facility]. Upon discharge patient plans to return home. social services analyst will follow up with any discharge needs.
--- NOTE | 2024-08-22 14:51 | ESHP_ITS ---
<Statement entered by Colby Kahn MD - 08/22/24 23:06> This patient is a 68-year-old female with past medical history of CAD, PE on Eliquis, hypertension, hyperlipidemia, wheelchair-bound, history of dementia, generalized anxiety disorder presented with altered mental status, hemoptysis, possible vomiting of blood and hematochezia x 1 day ago associated with NO urine output. Patient's megwfeuw-my-zne was present at bedside reported the patient was feeling weakness and had productive cough. She was prescribed Lasix by her PCP a day ago after which she did not make enough urine. Patient was also having bright red blood however PEG tube was clean and dry. She does have sacral decubitus ulcer. Patient has been taking multiple medications for pain and anxiety as well for blood pressure control. Patient's ftmeuzsm-jj-anv reported that patient has been having loose stools more than 5 episodes a day due to her tube feeding formula fiber plus which was recently placed with another formula. -->She was found to have critical anemia with hemoglobin 3.3 and was transfused 4 units PRBC and 2 L LR x 1. GI was consulted for further recommendations and Protonix was started every 12 hourly. Eliquis was held as patient was taking it for PE. Head CT without contrast was ordered to evaluate for acute encephalopathy. -->Additionally patient was found to have critical hyperkalemia, lactic acidosis and NAGMA. Despite hyperkalemia cocktail including regular insulin, calcium gluconate, sodium bicarbonate and breathing treatment it did not improve and patient was not making urine therefore temporary Vas-Cath was placed and port crane operator was consulted who recommended to proceed with temporary dialysis for ARF with acidemia and electrolyte imbalance with no urine output. Anticipating correction with dialysis. -->Patient had significantly elevated blood glucose around 461 therefore additional regular insulin 10 units IV x 1 was given along with insulin sliding scale and basal insulin. --> Patient was started on IV ceftriaxone 1 g once daily for urinary tract infection. Will follow-up with blood cultures/urine cultures and MRSA screen. --> Patient was also found to have pulmonary edema on chest x-ray expecting improvement with dialysis. Ordered chest PT and will consider getting echocardiogram. --> Holding Eliquis as patient has a history of PE. --> Holding home medications given patient came with altered mental status. --> If patient's MAP/blood pressure drop below 65, ICU team is aware and patient will be upgraded to ICU --> For hypothermia Byron hugger was placed. --> For PEG tube feeding dietitian has been consulted. I saw and examined the patient, and I agree with current management stated by Dr Miky MD,PGY1. Plan of care was discussed with the attending physician and resident physician. Disclaimer: Despite multiple revisions, due to the dictation software being used, the document bellow may not be free of grammatical errors including phonetic/typographic errors. However, this does not deter from our commitment to providing health care in the patient's best interest in mind. Dr. Femi MD, PGY 2 Documentation for date of: 08/22/24 HPI History of Present Illness Chief complaint: AMS History of present illness: Ms. Blanca is a 88 year old female with past medical history significant for hypertension, hyperlipidemia, history of pulmonary embolism on Eliquis 5 mg, dementia, insomnia and generalized weakness (wheelchair-bound) presented to the ED due to altered mental status, nausea vomiting and diarrhea with multiple episodes of hematochezia. Due to patient's altered mental status all of the history is obtained from patient's indvekvf-jf-elo who is at bedside. Patient lives with her and is wheelchair-bound at baseline and family members throughout the day helps her with ADL. Patient has been coughing for the past 1 week and the PCP had started her on Lasix which did not alleviate her cough patient continued to have worsening cough throughout the week and today patient was having multiple episodes of vomiting and during one of the episodes of vomiting patient coughed up a blood clot. Patient's granddaughter yesterday also noted 2 episodes of epistaxis and this morning 1 episode of epistaxis which resolved after putting pressure on it. Today patient also complained of severe abdominal pain and had several episodes of diarrhea which was blood tinged [id number] stated that patient has had that bloodstained diarrhea for a week while but she related to the ulcers and diaper rash that she always has with open wounds but did not realize that the blood was in the stool. Patient denied any chest pain palpitation or dizziness. On 06 August patient had a fall but did not hit her head stated she fell on her butt when she tried to grab something off of her wheelchair. ED course Vitals: blood pressure is 155/63, pulse 67, respirations 22 and temperature 92.1 . Bear hugger was placed due to hypothermia patient is saturating on 2 L oxygen via oxymask Labs: WBC 14.6, hemoglobin 3.7, hematocrit 13.1, platelet 127, PT above 63, PTT 56, sodium 130, potassium 6.0, bicarb 18.1, anion gap 11, BUN 90, creatinine 2.7, GFR 17, glucose 461, lactic acid 5.4, iron 44, ferritin 382, AST 58, ALT 52, BNP 391, Pro-Bob 0.56, beta hydroxybutyrate 0.4 Images EKG: Sinus bradycardia and right bundle branch block CXR: Positive fluid balance with probable trace fluid in the right minor fissure, Congestive heart failure pattern. PMH:hypertension, hyperlipidemia, history of pulmonary embolism on Eliquis 5 mg, dementia, insomnia and generalized weakness (wheelchair-bound) PSH:appendectomy ,cataract surgery, PEG Tube (place in 2023) SH:not obtainable due to pt's AMS Home meds: Simvastatin, raloxifene, tramadol, famotidine, mirtazapine, donepezil, ferrous sulfate 325, misoprostol, megestrol, docusate sodium, memantine, Eliquis, pantoprazole, gabapentin, trazodone, ascorbic acid, buspirone, fenofibrate, rexulti, amlodipine Review of Systems Review of Systems Systems Reviewed: All systems reviewed, normal except as documented Past Medical History Past Medical History NEUROLOGIC: Positive Dementia CARDIAC: Positive Cardiac Disorders, Atherosclerotic Heart Disease, Hypercholesterolemia, Edema and Hypertension RESPIRATORY: Positive Bronchitis and Pneumonia GASTROINTESTINAL: Positive Gastrointestinal Disorders, Gastrointestinal Bleed, Diverticulitis, Ulcer, Hemorrhoids and Gastroesophageal Reflux Disease GENITOURINARY: Positive Genitourinary Disorders REPRODUCTIVE: Positive Previous Pregnancies MUSCULOSKELETAL: Positive Musculoskeletal Disorders, Arthritis, Osteoporosis and Fractures ENT: Positive Glaucoma, Blind and Deafness HEMATOLOGIC: Positive Blood Disorders and Anemia PSYCHO/SOCIAL: Positive Depression, Anxiety and Behavior Problems OTHER HISTORY: Positive Hospitalization, Shingles, Falls, Blood Transfusions, Chicken Pox and Cancer Family History FAMILY HISTORY: Negative Family Psychiatric Problems, Family Respiratory Disorders, Family Cardiac Disorders, Family Gastrointestinal Problems, Family Cancer, Family Surgery or Family Anesthesia Reaction Surgical History SURGICAL: Positive Abdominal Surgery (G-TUBE) Social History SMOKING STATUS: Unknown if ever smoked SECOND HAND EXPOSURE: No SUBSTANCE USE: does not use Exam Vital Signs Temp Pulse Resp BP Pulse Ox O2 Del Method O2 Flow Rate 94.6 F L 92 18 92/39 L 100 Nasal Cannula 2 08/22/24 14:45 08/22/24 14:45 08/22/24 14:45 08/22/24 14:45 08/22/24 14:45 08/22/24 10:41 08/22/24 14:45 Narrative Exam GENERAL: A&Ox0 elderly ill appearing female, somolent NEURO: unable to asses due to mental status HEENT: Atraumatic, Normocephalic. mucous membranes moist. Eyes open, symmetrical, & clear HEART: Normal Heart Sounds LUNGS: Clear to auscultation with no wheezing or crackles. ABDOMEN: soft, non-distended, non-tender, bowel sounds heard, no guarding or rebound tenderness, PEG tube in place SKIN: No Rash or ecchymoses, decubitus sacral ulcer EXTREMITIES: No edema, tenderness, able to move all 4 extremities, pedal pulses palpated, multiple bruising from fall Results: Labs 08/25/24 05:52 08/25/24 05:52 Labs: Short CBC 08/22/24 08/22/24 Range/Units 10:33 11:13 WBC 15.6 H 14.6 H (3.6-11.0) Thou/mm3 Hgb 3.8 L* 3.7 L* (12.0-16.0) g/dL Hct 13.2 L* 13.1 L* (36.0-46.0) % Plt Count 141 127 L (140-440) Thou/mm3 BMP 08/22/24 08/22/24 10:33 12:47 Sodium 130 L Potassium 6.0 H 6.3 H* Chloride 101 Carbon Dioxide 18.1 L BUN 90 H Creatinine 2.7 H Glucose 461 H* Calcium 8.2 L Liver Function 08/22/24 Range/Units 10:33 Total Bilirubin 1.1 (0.3-1.2) mg/dL AST 58 H (0-34) U/L ALT 52 H (10-49) U/L Alkaline Phosphatase 135 H (46-116) U/L Albumin 2.9 L (3.4-4.8) gm/dL Urine 08/22/24 Range/Units 11:01 Urine Color Yellow (Lt Yel-Yel) Urine Clarity Turbid A (Clear/Hazy) Urine pH 5.0 (5.0-7.0) Ur Specific [place] 1.016 (1.001-1.035) Urine Protein Trace (Neg - Trace) Urine Glucose (UA) Negative (Negative) Quality Measures Quality Measures VTE prophylaxis (sCDs) Advance care planning discussed with:: other Medications Home Medications and Allergies Home Medications ?Medication ?Instructions ?Recorded ?Confirmed ?Type raloxifene 60 mg tablet (Evista) 60 mg feeding tube QA M #0 tabs 10/14/16 08/24/24 History simvastatin 40 mg tablet (Zocor) 40 mg feeding tube QP M #0 tabs 10/14/16 08/24/24 History gabapentin 300 mg capsule 300 mg PO TID 09/28/2208/24 History mirtazapine 15 mg tablet 15 mg feeding tube QPM 02/2208/24/24 History tramadol 50 mg tablet 100 mg feeding tube Q12H 08/24/24 History donepezil 5 mg tablet 10 mg PO QDAY 05/08/2308/24 History ferrous sulfate 325 mg (65 mg 325 mg feeding tube QDAY 05/08/23 08/24/24 History iron) tablet (FeroSul) misoprostol 200 mcg tablet 200 mcg feeding tube TID 08/24/24 History amlodipine 5 mg tablet 2.5 mg PO QDAY 12/23/2308/09 History ascorbic acid (vitamin C) 500 mg 500 mg PO QDAY 08/24/24 History tablet (Vitamin C) brexpiprazole 0.5 mg tablet 0.5 mg feeding tube QPM 08/24/24 History (Rexulti) buspirone 15 mg tablet 15 mg feeding tube TID 12/2208/24/24 History fenofibrate 54 mg tablet 54 mg feeding tube .qpmac 08/24/24 History trazodone 50 mg tablet 50 mg feeding tube HS 08/24/24 History suvorexant 15 mg tablet (Belsomra) 20 mg PO QDAY 12/2908/24/24 History apixaban 5 mg tablet (Eliquis) 5 mg PO Q12H 08/24/24 0 08/24/24 History brexpiprazole 2 mg tablet (Rexulti) 2 mg PO HS 5 08/24/24 History famotidine 20 mg tablet 20 mg PO QDAY 08/24/2408/24 History furosemide 20 mg tablet 20 mg PO QDAY PRN fluid over load 08/24/24 08/24/24 History hydrochlorothiazide 12.5 mg capsule 12.5 mg PO .@1200 08/24/24 08/24/24 History memantine 10 mg tablet 10 mg PO BID 08/24/24 History metoprolol succinate 25 mg 25 mg PO QDAY 08/24/2408/09 History tablet,extended release 24 hr Allergies Allergy/AdvReac Type Severity Reaction Status Date / Time No Known Allergies Allergy Verified 12/22/23 16:50 Visit Medications Dextrose (Dextrose 50%-Water Inj 50 Ml Syringe) 50 ml IV Q15MIN PRN PRN Reason: BG <50 OR BG <70 & pt unresponsive Stop: 09/21/24 12:22 Dextrose (Dextrose 50%-Water Inj 50 Ml Syringe) 25 ml IV Q15MIN PRN PRN Reason: BG 50-70 responsive npo pt Stop: 09/21/24 12:25 Glucagon (Glucagon Inj 1 Mg Vial) 1 mg IM Q15MIN PRN PRN Reason: BG <70, and no IV access Dextrose (D10w 1000 Ml) 1,000 mls @ 100 mls/hr IV .Q10H MANUEL Stop: 08/22/24 22:29 Ceftriaxone Sodium 1,000 mg/ (Sodium Chloride) 50 mls @ 100 mls/hr IV QDAY MANUEL Stop: 08/30/24 08:59 Lactated Ringer's (Lactated Ringers) 1,000 mls @ 999 mls/hr IV .Q1H1M ONE Stop: 08/22/24 15:09 Insulin Glargine (Insulin Glargine (Lantus) 5 Unit/0.05 Ml (Per 5 Units)) 10 unit SC HS MANUEL Stop: 09/21/24 20:59 Insulin Human Lispro (Insulin Lispro (Admelog) 1 Unit/0.01 Ml Unit) 0 unit SC Q6H MANUEL; Protocol Stop: 09/21/24 12:29 Pantoprazole Sodium (Pantoprazole Inj 40 Mg Vial) 40 mg IVP Q12HR MANUEL Stop: 09/21/24 20:59 Discontinued Medications Albuterol/Ipratropium (Albuterol/Ipratropium (Duoneb) Rt Leni 3 Ml Nebu) 10 ml INH X1 ONE Stop: 08/22/24 12:27 Last Admin: 08/22/24 12:56 Dose: 10 ml Calcium Gluconate (Calcium Gluconate 10% Inj 1 Gm/10 Ml Vial) 1 gm IV X1 ONE Stop: 08/22/24 12:27 Last Admin: 08/22/24 13:56 Dose: 1 gm Dextrose (Dextrose 50%-Water Inj 50 Ml Syringe) 25 ml IV Q15MIN PRN PRN Reason: BG 50-70 responsive npo pt Stop: 09/21/24 12:22 Dextrose (Dextrose 50%-Water Inj 50 Ml Syringe) 50 ml IV X1 ONE Stop: 08/22/24 12:27 Last Admin: 08/22/24 13:52 Dose: 50 ml Glucagon (Glucagon Inj 1 Mg Vial) 1 mg IM Q15MIN PRN PRN Reason: BG <70, and no IV access Ceftriaxone Sodium 1,000 mg/ (Sodium Chloride) 50 mls @ 100 mls/hr IV X1 ONE Stop: 08/22/24 12:23 Lactated Ringer's (Lactated Ringers) 1,000 mls @ 2,000 mls/hr IV .Q30M ONE Stop: 08/22/24 12:25 Last Admin: 08/22/24 13:21 Dose: 2,000 mls/hr Insulin Human Regular (Insulin Hum Regular 1 Unit/0.01 Ml (Per Unit)) 0 unit SC Q6H MANUEL; Protocol Stop: 09/21/24 12:29 Insulin Human Regular (Insulin Hum Regular 1 Unit/0.01 Ml (Per Unit)) 5 unit IV X1 ONE Stop: 08/22/24 12:27 Last Admin: 08/22/24 13:27 Dose: Not Given Insulin Human Regular (Insulin Hum Regular 1 Unit/0.01 Ml (Per Unit)) 10 unit IV X1 ONE Stop: 08/22/24 13:26 Last Admin: 08/22/24 13:51 Dose: 10 unit Pantoprazole Sodium (Pantoprazole Inj 40 Mg Vial) 40 mg IVP X1 ONE Stop: 08/22/24 12:15 Last Admin: 08/22/24 14:07 Dose: 40 mg Sodium Bicarbonate (Sodium Bicarb Inj 8.4% 1 Meq/Ml 50 Ml Vial) 50 meq IV X1 ONE Stop: 08/22/24 12:27 Last Admin: 08/22/24 13:56 Dose: 50 meq Sodium Bicarbonate (Sodium Bicarb Inj 8.4% Syr 50 Ml Syringe) 50 ml IV X1 ONE Stop: 08/22/24 13:39 Last Admin: 08/22/24 13:58 Dose: Not Given Assessment & Plan Plan Ms. Blanca is a 88 year old female with past medical history significant for hypertension, hyperlipidemia, history of pulmonary embolism on Eliquis 5 mg, dementia, insomnia and generalized weakness (wheelchair-bound) presented to the ED due to altered mental status, nausea vomiting with blood clot and diarrhea with multiple episodes of hematochezia. #Acute encephalopathy, multifactorial -DDx: Acute renal failure with azotemia, acute blood loss anemia, polypharmacy, hyperglycemia, UTI, hypotension -Pt is not at her baseline mentation where she is responsive and converses with family members, although this morning pt was able to express symptoms of abdominal pain but progressively became altered and became more somlament -Follow-up on head CT scan -Transfusing blood and correcting blood sugars -Treating underlying infection -Holding home medications #Acute severe blood loss anemia, likely lower GI #Hypotension DDx: Hemorrhoids, diverticular bleed, Eliquis use, peptic ulcer disease -Pt has several episodes of hemotaozia for a few days and episodes of blood tinge diarrhea -on admission Hgb 3.7 and Hct -lactic acid 5.4 ->5.1, due to volume loss in the setting of blood loss -ordered 4 units of pRBCs and PCC -Protonix every 12 hourly -post transfusion H&H ordered -GI consult placed, appreciate recommendations -Prothrombin complex concentrate given for Eliquis reversal -H&H Q8 hourly -PRBC if hemoglobin drops below 7 -ICU team will closely follow-up and will upgrade the patient if MAP drops below 65 -Iron panel, B12 and folate were within normal range -SCDs for DVT prophylaxis #Lactic acidosis, type A ? Likely related to blood loss -Lactic acid was 5.4--> 5.1 due to volume loss in the setting of blood loss -Follow-up on lactic acid -Transfusing 4 units PRBC #Worsening FIDEL with azotemia likely prerenal -Underlying history of CKD stage IIIb?4 DDx: Prerenal causes: Blood loss, hypotension, diuretics, renal causes: ATN -On admission, BUN 90, creatinine 2.7 and GFR 17, likely prerenal in the setting of bloodloss/volume loss -2L bolus LR given and blood transfusion ordered -Anticipate improvement with temporary dialysis -Strict NICOLÁS's -Avoid nephrotoxic agents, renally dose medications -Nephrology consulted, appreciate recommendations -Follow-up on renal panel #UTI ? Urinalysis was showing pyuria with positive leukocyte esterase. -Per patient's misnkizk-ik-hef patient was having symptoms of discomfort during urination. Procalcitonin was 0.56 -Started IV ceftriaxone once daily -Follow-up on urine cultures and blood cultures #NAGMA -Likely due to ARF ?Patient presented with acidosis bicarb of 18. ABGs showed pH 7.33 -Anticipate improvement with temporary dialysis -Holding diuretics and transfusing blood #?CHF -Chest x-ray was suggestive for positive fluid balance with probable trace fluid in the right fissure. CHF pattern. Worsening pulmonary edema with increased interstitial markings. -BNP was mildly elevated -Echo from 2022 showed EF 65-70% with stage I diastolic dysfunction -Performing temporary dialysis -Gentle IV fluids were given -Strict NICOLÁS's -Aspiration precautions -Nasopharyngeal suctioning -Chest PT #Electrolyte disturbances #Pseudo hyponatremia #Hyperkalemia -Related to ARF, blood loss, hyperglycemia -on admission pt's potassium was 6.5. EKG showed sinus bradycardia with RBBB. Corrected sodium for glucose 136 -pt is given breathing treatment, 10 units of insulin, calcium gluconate and sodium Bicarb -Pt is undergoing urgent dialysis after placement of Vas-Cath by ICU park interpreter -Anticipate correction of electrolytes with dialysis -will repeat labs and closely monitor -nephrology is following #Hyperglycemia -Pt does not have history of DM and her blood sugar on admission are 461 -Lispro 6 units given, and insulin sliding scale ordered -A1c ordered for am draw -In total, patient received 10 units of IV regular insulin x 1, sliding scale insulin lispro and scheduled to get Lantus 10 units at bedtime #Hypothermia -Pt temperature on admission is 92.1 liekly due to hypoperfusion in the setting of volume loss -ED ordered kristine tanner -Monitoring temperature closely #Elevated transaminases #Elevated T. bili -Total bilirubin: Was 1.1 increased to 2.3 -AST and ALT mildly elevated -Likely due to blood loss, medications, liver -Avoid hepatotoxic agents -Treating ARF -Consider liver ultrasound and follow-up on hepatitis panel #Hypertension #HLD #Generalized weakness #Osteoarthritis #Wheelchair-bound - will resume home meds when med recs is done -will hold antihypertensive medications due to hypotension in the setting of volume loss -Currently altered mental status therefore holding pain medications #Failure to thrive #PEG tube placed in december 2023 -Pt has history of decreased oral intake and PEG tube was placed for tube feeds -Dietitian consult is placed, and will resume tube feeds after GI specialist recs -Recently patient's formula feed for PEG tube was replace per patient's [id number], was previously on fiber plus #Dementia #Insomnia #Generalized anxiety disorder -Pt has history of dementia due to that pt often becomes combative -Home meds include donepezil, buspirone, mirtazapine, Brexpiprazole, Trazodone -Holding home medications due to AMS -Restraints due to patient's pulling out lines -Resume Rexulti given concern for combative behavior #Sacral decubitus ulcer #Decubitus ulcer left hip -Patient has sacral decubitus ulcer covered in surgical dressing. Plan: -referral to wound care placed -Frequent repositioning -Vitamin C zinc sulfate #Hx PE on Eliquis -will hold home eliquis due to GI bleed -PCC complex given for reversal Health Maintenance Disposition: Patient is admitted for further workup and management of acute encephalopathy, acute blood loss anemia, ARF and UTI. DVT Prophylaxis: SCDs GI Prophylaxis: Pantoprozol-40 IV BID Diet: NPO Lines: Peripheral lines Code status: Full Assessment and plan discussed with my senior resident Dr. Kahn & attending physician Dr. Chuy Bolaños (PGY-1)- Internal medicine resident Attending Provider Attestation/Addendum I have examined the patient, reviewed labs and imaging findings, discussed the case with the resident(s), and reviewed entered orders. I agree with the plan of care as outlined in this note, with these additional summaries/recommendations: # Acute encephalopathy: Per [id number] at bedside patient is not at her baseline although was speaking earlier. Most likely secondary to underlying GI bleed. No obvious metabolic etiology at this time. We will treat suspected underlying cause and monitor for improvement. Non-Pharm measures to prevent delirium. Patient does have underlying dementia. #GI Bleed #ABLA Most likely upper GI bleed as patient had episode of hematemesis on admission. I reviewed the picture taken by [id number]. Although ER provider also noted blood in rectal vault. Start IV fluids. Start IV Protonix. Patient takes home Eliquis and we will follow-up with pharmacy to see if reversal agent available. Hold all chemical anticoagulation including home Eliquis. Hemoglobin critically low at 3.7 and currently receiving 2 units PRBCs. We will follow-up posttransfusion H&H and will likely need additional PRBCs. Overall prognosis remains guarded at this time. # Hyperkalemia # Acute kidney injury Most likely secondary to prerenal azotemia in the setting of GI bleed On admission creatinine 2.7 and BUN 90 suggestive of GI bleed. Baseline creatinine appears to be around 1.2. Potassium was also noted to be 6.0 on admission secondary to FIDEL. We will continue to give temporizing measures and Kayexalate as needed. Nephrology consulted and recommends Vas-Cath and monitoring urinary output closely. Vas- Cath ordered and we will follow-up with ICU team to see if this can be placed. Avoid nephrotoxic agents and renally dose medications. Continue to trend potassium. # Hypothermia Most likely secondary to GI bleed and underperfusion. Continue Byron hugger and monitor for improvement. # Hypotension Most likely secondary to underlying GI bleed. Hold home antihypertensives. Blood pressure is somewhat labile but continues to be on the softer side. MAP did decrease less than 65 multiple times but has now improved. ICU consulted and blood pressure currently stabilized. If MAP drops below 65 again then we will transition patient to ICU level care. # Lactic acidosis On admission lactic acid 5.4. Most likely type A lactic acidosis in the setting of GI bleed. Continue to trend lactic acidosis until resolution. # PEG tube Plan: Hold tube feeds for now in setting of GI bleed. # History of pulmonary embolism Plan: Hold home Eliquis for now and will have further goals of care about discontinuing this medication. Patient's family updated at bedside and in agreement. We will monitor the patient closely and appreciate ICU team for evaluating patient at bedside. Dr. Chuy MD
--- NOTE | 2024-08-22 14:52 | PC.NURSE ---
CALLED DR. GAONA TO LET HER KNOW THAT THIS PT B/P KEEP DROPING AND TO CONSIDER TO MOVE PT TO ICU, PER SHE WILL TALK TO HER ATTENDING AND GET BACK TO ME
[2024-08-22 14:57] LABS: Base Excess -6 (-3-3); HCO3 20 mEq/L (20-26); O2 Saturation 101 % (91-98); PCO2 37 mmHg (32.0-48.0); PO2 142 mmHg (83-108); pH, Arterial 7.33 (7.35-7.45)
[2024-08-22 14:58] LABS: Allen Test Not Performed; Inspired O2, VO2 Liters 2 L/min; Puncture Site Right Radial
[2024-08-22] MEDS: cefTRIAXone 1,000 MG in SODIUM CHLORIDE 0.9% (Popper) 50 ML 100 MG IV (14:59)
--- NOTE | 2024-08-22 15:10 | PC.NURSE ---
notified Denys kimble of cancellation of the temporary dialysis catheter insertion per Chris carranza order and Chris Carranza recommendations are to consult with exterminator helper or the OR surgeons.
--- NOTE | 2024-08-22 15:10 | PD.RESCONSUL ---
HPI Data of Consult Consult date: 08/22/24 Requesting Physician: Matheus Vera MD Admitting Provider: Matheus Vera MD Attending Provider: Matheus Vera MD Primary Care Provider: Gilbert Hendricks MD Consult Narrative Reason for consult: Acute renal failure, metabolic acidosis History of present illness: Patient is weak and most of the history was taken from the [id number] at the bedside A 88-year-old female with past medical history of hypertension, hyperlipidemia, pulmonary embolism on Eliquis, dementia, insomnia presented to the hospital with chief complaints of nausea, vomiting, diarrhea since 1 day. At baseline patient was bedbound and have severe dementia, taken care by her [id number]. Patient was apparently at her baseline 1 day ago. Yesterday, daughter noted patient is having episodes of epistaxis and resolved after applying pressure to it. This morning patient was found to have blood pressure of 100/40 for which her blood pressure medications were not given and later patient found to have 2 episodes of vomiting with blood in it. [id number]-kra also stated that she noticed brownish discoloration of stools this morning. Later found to have bloody stools. Denies fever, shortness of breath, chest pain, palpitations ED Course: -Initial vitals were blood pressure 155/63 mmHg, pulse rate 67/min, respiratory rate 22/min, temperature 92.1 ?F, SpO2 100% with 2 L oxygen -Labs significant for WBC 14.6, Hb 3.7, platelets 127, sodium 130, potassium 6.3, bicarb 18.1, BUN 90, creatinine 2.7, glucose 461, lactate 5.1, AST 58, ALT 52, procalcitonin 0.56 -Urine analysis showed turbid urine with 77 WBC -Chest x ray did not show any patchy infiltrates -In the ED, patient was given hyperkalemic treatment Nephrology was consulted in view of acute kidney injury cc:: cc: Matheus Vera MD Review of Systems Review of Systems ROS Unobtainable: unobtainable due to mental status and unobtainable due to medical condition Exam Vital Signs Temp Pulse Resp BP Pulse Ox O2 Del Method O2 Flow Rate 94.6 F L 92 18 92/39 L 100 Nasal Cannula 2 08/22/24 14:45 08/22/24 14:45 08/22/24 14:45 08/22/24 14:45 08/22/24 14:45 08/22/24 10:41 08/22/24 14:45 Narrative Exam General: Able to follow some commands HEENT: Normocephalic, atraumatic, mucous membranes moist. Heart: Regular rate and rhythm, no murmurs. Lungs: B/l transmitted breath sounds heard Abdomen: Soft, mildly distended, nontender, positive bowel sounds. ?No guarding or rebound tenderness. Neurologic: no gross neurological deficit, and patient able to move all 4 extremities. Extremities: No edema. Skin: No rash or ecchymoses. Results Labs 08/23/24 03:42 08/23/24 03:42 Labs: Short CBC 08/22/24 08/22/24 Range/Units 10:33 11:13 WBC 15.6 H 14.6 H (3.6-11.0) Thou/mm3 Hgb 3.8 L* 3.7 L* (12.0-16.0) g/dL Hct 13.2 L* 13.1 L* (36.0-46.0) % Plt Count 141 127 L (140-440) Thou/mm3 BMP 08/22/24 08/22/24 10:33 12:47 Sodium 130 L Potassium 6.0 H 6.3 H* Chloride 101 Carbon Dioxide 18.1 L BUN 90 H Creatinine 2.7 H Glucose 461 H* Calcium 8.2 L Liver Function 08/22/24 Range/Units 10:33 Total Bilirubin 1.1 (0.3-1.2) mg/dL AST 58 H (0-34) U/L ALT 52 H (10-49) U/L Alkaline Phosphatase 135 H (46-116) U/L Albumin 2.9 L (3.4-4.8) gm/dL Urine 08/22/24 Range/Units 11:01 Urine Color Yellow (Lt Yel-Yel) Urine Clarity Turbid A (Clear/Hazy) Urine pH 5.0 (5.0-7.0) Ur Specific [place] 1.016 (1.001-1.035) Urine Protein Trace (Neg - Trace) Urine Glucose (UA) Negative (Negative) ABG Interpretation ABG results: 08/22/24 14:52 ABG pH 7.33 L ABG pCO2 37 ABG pO2 142 H ABG HCO3 20 ABG O2 Saturation 101 H ABG Base Excess -6 L Quality Measures Quality Measures none Advance care planning discussed with:: child Medications Home Medications and Allergies Home Medications ?Medication ?Instructions ?Recorded ?Confirmed ?Type raloxifene 60 mg tablet (Evista) 60 mg feeding tube QAM #0 tabs 10/14/16 12/30/23 History simvastatin 40 mg tablet (Zocor) 40 mg feeding tube QPM #0 tabs 10/14/16 12/30/23 History gabapentin 300 mg capsule 300 mg PO TID 09/28/22 12/30/23 History mirtazapine 15 mg tablet 15 mg feeding tube BID 02/22/23 12/30/23 History tramadol 50 mg tablet 100 mg feeding tube Q12H 02/22/23 12/30/23 History donepezil 5 mg tablet 10 mg PO QDAY 05/08/23 12/30/23 History ferrous sulfate 325 mg (65 mg 325 mg feeding tube QDAY 05/08/23 12/30/23 History iron) tablet (FeroSul) misoprostol 200 mcg tablet 200 mcg feeding tube TID 05/08/23 12/30/23 History amlodipine 5 mg tablet 2.5 mg PO QDAY 12/23/23 12/30/23 History ascorbic acid (vitamin C) 500 mg 500 mg PO QDAY 12/23/23 12/30/23 History tablet (Vitamin C) brexpiprazole 0.5 mg tablet 0.5 mg feeding tube QPM 12/23/23 12/30/23 History (Rexulti) buspirone 15 mg tablet 15 mg feeding tube TID 12/23/23 12/30/23 History fenofibrate 54 mg tablet 54 mg feeding tube QPM 12/23/23 12/30/23 History trazodone 50 mg tablet 50 mg feeding tube HS 12/23/23 12/30/23 History suvorexant 15 mg tablet (Belsomra) 15 mg PO QDAY 12/30/23 12/30/23 History Allergies Allergy/AdvReac Type Severity Reaction Status Date / Time No Known Allergies Allergy Verified 12/22/23 16:50 Visit Medications Dextrose (Dextrose 50%-Water Inj 50 Ml Syringe) 50 ml IV Q15MIN PRN PRN Reason: BG <50 OR BG <70 & pt unresponsive Stop: 09/21/24 12:22 Dextrose (Dextrose 50%-Water Inj 50 Ml Syringe) 25 ml IV Q15MIN PRN PRN Reason: BG 50-70 responsive npo pt Stop: 09/21/24 12:25 Glucagon (Glucagon Inj 1 Mg Vial) 1 mg IM Q15MIN PRN PRN Reason: BG <70, and no IV access Dextrose (D10w 1000 Ml) 1,000 mls @ 100 mls/hr IV .Q10H MANUEL Stop: 08/22/24 22:29 Ceftriaxone Sodium 1,000 mg/ (Sodium Chloride) 50 mls @ 100 mls/hr IV QDAY MANUEL Stop: 08/30/24 08:59 Albumin Human (Albuminar-25 Ivpb) 25 gm in 100 mls @ 100 mls/min IV PRN PRN PRN Reason: DIALYSIS Prothrombin Complex Concent ( Human) 2,000 unit/ Sterile Water 80 ml/ IV Miscellaneous Supplies 80 mls @ 320 mls/hr IV X1 ONE Stop: 08/22/24 15:17 Insulin Glargine (Insulin Glargine (Lantus) 5 Unit/0.05 Ml (Per 5 Units)) 10 unit SC HS MANUEL Stop: 09/21/24 20:59 Insulin Human Lispro (Insulin Lispro (Admelog) 1 Unit/0.01 Ml Unit) 0 unit SC Q6H MANUEL; Protocol Stop: 09/21/24 12:29 Pantoprazole Sodium (Pantoprazole Inj 40 Mg Vial) 40 mg IVP Q12HR MANUEL Stop: 09/21/24 20:59 Discontinued Medications Albuterol/Ipratropium (Albuterol/Ipratropium (Duoneb) Rt Leni 3 Ml Nebu) 10 ml INH X1 ONE Stop: 08/22/24 12:27 Last Admin: 08/22/24 12:56 Dose: 10 ml Calcium Gluconate (Calcium Gluconate 10% Inj 1 Gm/10 Ml Vial) 1 gm IV X1 ONE Stop: 08/22/24 12:27 Last Admin: 08/22/24 13:56 Dose: 1 gm Dextrose (Dextrose 50%-Water Inj 50 Ml Syringe) 25 ml IV Q15MIN PRN PRN Reason: BG 50-70 responsive npo pt Stop: 09/21/24 12:22 Dextrose (Dextrose 50%-Water Inj 50 Ml Syringe) 50 ml IV X1 ONE Stop: 08/22/24 12:27 Last Admin: 08/22/24 13:52 Dose: 50 ml Glucagon (Glucagon Inj 1 Mg Vial) 1 mg IM Q15MIN PRN PRN Reason: BG <70, and no IV access Ceftriaxone Sodium 1,000 mg/ (Sodium Chloride) 50 mls @ 100 mls/hr IV X1 ONE Stop: 08/22/24 12:23 Last Admin: 08/22/24 14:59 Dose: 100 mls/hr Lactated Ringer's (Lactated Ringers) 1,000 mls @ 2,000 mls/hr IV .Q30M ONE Stop: 08/22/24 12:25 Last Infusion: 08/22/24 15:02 Dose: Infused Lactated Ringer's (Lactated Ringers) 1,000 mls @ 999 mls/hr IV .Q1H1M ONE Stop: 08/22/24 15:09 Insulin Human Regular (Insulin Hum Regular 1 Unit/0.01 Ml (Per Unit)) 0 unit SC Q6H MANUEL; Protocol Stop: 09/21/24 12:29 Insulin Human Regular (Insulin Hum Regular 1 Unit/0.01 Ml (Per Unit)) 5 unit IV X1 ONE Stop: 08/22/24 12:27 Last Admin: 08/22/24 13:27 Dose: Not Given Insulin Human Regular (Insulin Hum Regular 1 Unit/0.01 Ml (Per Unit)) 10 unit IV X1 ONE Stop: 08/22/24 13:26 Last Admin: 08/22/24 13:51 Dose: 10 unit Pantoprazole Sodium (Pantoprazole Inj 40 Mg Vial) 40 mg IVP X1 ONE Stop: 08/22/24 12:15 Last Admin: 08/22/24 14:07 Dose: 40 mg Sodium Bicarbonate (Sodium Bicarb Inj 8.4% 1 Meq/Ml 50 Ml Vial) 50 meq IV X1 ONE Stop: 08/22/24 12:27 Last Admin: 08/22/24 13:56 Dose: 50 meq Sodium Bicarbonate (Sodium Bicarb Inj 8.4% Syr 50 Ml Syringe) 50 ml IV X1 ONE Stop: 08/22/24 13:39 Last Admin: 08/22/24 13:58 Dose: Not Given Assessment & Plan Plan A 88-year-old female with past medical history of hypertension, hyperlipidemia, pulmonary embolism on Eliquis, dementia, insomnia presented to the hospital with chief complaints of nausea, vomiting, diarrhea since 1 day. # Acute kidney injury on Ckd stage IIIb Likely prerenal FIDEL vs ATN in the setting of anemia, GI bleed -Brought to the hospital with complaints of nausea, vomiting, diarrhea and bloody stools. -Baseline creatinine on 06/2024 is 1.2 -On the day of admission, 08/22/2024 creatinine 2.7, BUN 90 -Patient also noted to have a decreased urine output Plan -In view of hyperkalemia, decreased urine output and FIDEL, recommended to do hemodialysis -Continue to monitor urine output and renal functions -Avoid nephrotoxic medication and renally dose medications # Hyperkalemia -Potassium at the time of admission is 6, repeat potassium is 6.3 -Received hyperkalemic treatment #Non AnionGap Metabolic acidosis #Lactic acidosis -Bicarb at the time of admission is 18.1 -Lactic acid is 5.4 Plan -Patient is scheduled for hemodialysis #Acute encephalopathy, multifactorial #Acute severe blood loss anemia, likely lower GI #Hypotension #Lactic acidosis, type A #UTI #Hyperglycemia #Elevated transaminases #Elevated T. bili #Hypertension #HLD #Generalized weakness #Osteoarthritis #Wheelchair-bound #Failure to thrive #PEG tube placed in december 2023 #Dementia #Insomnia #Generalized anxiety disorder #Sacral decubitus ulcer #Decubitus ulcer left hip #Hx PE on Eliquis -Rest of the medical conditions to be treated as per primary team Thank you for allowing us to involve in the care of the patient Patient plan of care was discussed with the attending physician, Dr. Keven Peters, PGY1 Attending Provider Attestation/Addendum Patient seen and examined with resident physician Dr. Lassiter. Note reviewed, agree with findings and recommendations. Had a long conversation with the daughter at bedside. Most likely patient has ATN. Noted to have hyperkalemia, metabolic acidosis. Decided to proceed with dialysis. No urine output despite Kaplan catheter and fluids. Vas-Cath placed by ICU team. Patient currently seen on dialysis. Tolerating dialysis without any problems. Hemodialysis for 2 hours, 2K, 40 bicarbonate, ultrafiltration 0 L, Epogen 6000, no heparin ordered. Plan of care discussed with the dialysis nurse. Please see dialysis flowsheet for further details. Thank you Matheus for allowing me to participate in the care of Padmaja Manisha
[2024-08-22] MEDS: INSULIN LISPRO (AdmeLOG) 1 UNIT/0.01 ML UNIT SC ×2 (15:16→19:07)
[2024-08-22] MEDS: PROTHROMBIN COMPLEX CONCENT 2,000 UNIT, Sterile Water 80 ML in CONTAINER,EMPTY 150 ML 1... 320 UNIT IV (15:26)
--- NOTE | 2024-08-22 16:27 | XR_ITS ---
EXAMINATION: XR chest 1V post procedure ORDERING PROVIDER: Callie Patrick MD HISTORY: VAS CATH PLACEMENT TECHNIQUE: Single portable AP radiograph of the chest. COMPARISON: 08/22/2024, 11:27 AM, chest radiographs. FINDINGS: Lines and Tubes: Interval placement of right neck vascular catheter with tip projecting over the expected region of the superior cavoatrial junction. Known gastrostomy tube not visualized. Overlying monitoring leads. Lungs: Worsening pulmonary edema with increased interstitial markings. Pleura: Small amount of fluid in the minor fissure. Trace blunting left costophrenic angle. No pneumothorax. Cardiomediastinal Silhouette: Mild to moderate cardiomegaly. Uncoiled aorta. Calcifications aortic arch. Soft Tissues/Bones: Unchanged. Healing left midclavicular fracture. IMPRESSION: 1. Lines and tubes as above. 2. Worsening positive fluid balance with fluid in the minor fissure and small left pleural effusion.
[2024-08-22] MEDS: RINGERS LACTATED 1000 ML 1,000 ML 999 ML IV (16:47)
--- NOTE | 2024-08-22 16:53 | PD.INTPROC ---
Procedures Procedure Date / Time 08/22/24 0745 Central Line Placement Right IJ: Indication(s): poor, or inadequate peripheral venous access Informed consent obtained: obtained from surrogate decision maker Time out done, and the following verified: correct patient, side and site, procedure and patient position Patient placed on monitor/pulse ox: Yes Hand Hygiene: alcohol-based hand rub Max Sterile Barrier Techniques used: cap, mask, sterile gown, sterile gloves and sterile full body drape Central line prep: Chlorhexidine scrub Local anesthesia used: lidocaine 1% Amount of anesthesia used (mL): 5 Ultrasound used for placement: Yes Sterile Technique if Ultrasound used, including sterile gel: yes Central line lumen inserted: triple Post procedure: sutured in place, good blood return, all ports aspirated, flushed, capped and sterile dressing applied Post procedure x-ray: tip of catheter in good position and no pneumothorax seen Patient tolerated procedure: well and no complications Complications: none Procedure comment: unable to advance catheter initially and 2nd attempt made which was successful
--- NOTE | 2024-08-22 17:10 | PD.IMCONS ---
HPI Data of Consult Requesting Physician: Matheus Vera MD Primary Care Provider: Gilbert Hendricks MD Consult Narrative Reason for consult: Hematemesis, hematochezia. Anemia blood loss 3.7/13.1 H/H History of present illness: Recent results the note below the care of the report hematochezia And hematemesis patient does have a history of pulmonary embolism on Eliquis as well as coronary artery disease Hypertension hyperlipidemia and underlying dementia cc:: cc: Matheus Vera MD Review of Systems Review of Systems Systems Reviewed: All systems reviewed, normal except as documented Past Medical History Surgical History OTHER SURGICAL HX: As in the history of present illness Meds Home Medications and Allergies Home Medications ?Medication ?Instructions ?Recorded ?Confirmed ?Type raloxifene 60 mg tablet (Evista) 60 mg feeding tube QAM #0 tabs 10/14/16 12/30/23 History simvastatin 40 mg tablet (Zocor) 40 mg feeding tube QPM #0 tabs 10/14/16 12/30/23 History gabapentin 300 mg capsule 300 mg PO TID 09/28/22 12/30/23 History mirtazapine 15 mg tablet 15 mg feeding tube BID 02/22/23 12/30/23 History tramadol 50 mg tablet 100 mg feeding tube Q12H 02/22/23 12/30/23 History donepezil 5 mg tablet 10 mg PO QDAY 05/08/23 12/30/23 History ferrous sulfate 325 mg (65 mg 325 mg feeding tube QDAY 05/08/23 12/30/23 History iron) tablet (FeroSul) misoprostol 200 mcg tablet 200 mcg feeding tube TID 05/08/23 12/30/23 History amlodipine 5 mg tablet 2.5 mg PO QDAY 12/23/23 12/30/23 History ascorbic acid (vitamin C) 500 mg 500 mg PO QDAY 12/23/23 12/30/23 History tablet (Vitamin C) brexpiprazole 0.5 mg tablet 0.5 mg feeding tube QPM 12/23/23 12/30/23 History (Rexulti) buspirone 15 mg tablet 15 mg feeding tube TID 12/23/23 12/30/23 History fenofibrate 54 mg tablet 54 mg feeding tube QPM 12/23/23 12/30/23 History trazodone 50 mg tablet 50 mg feeding tube HS 12/23/23 12/30/23 History suvorexant 15 mg tablet (Belsomra) 15 mg PO QDAY 12/30/23 12/30/23 History Allergies Allergy/AdvReac Type Severity Reaction Status Date / Time No Known Allergies Allergy Verified 12/22/23 16:50 Exam Vital Signs Temp Pulse Resp BP Pulse Ox O2 Del Method O2 Flow Rate 95.9 F L 94 22 H 124/52 L 100 Nasal Cannula 2 08/22/24 16:00 08/22/24 16:00 08/22/24 16:00 08/22/24 16:00 08/22/24 16:00 08/22/24 16:00 08/22/24 16:00 Constitutional Comments: Chronically ill-appearing Routine Respiratory Exam Comments: Normal to auscultation Routine Abdominal Exam Comments: Soft nontender Results Labs 08/23/24 03:42 08/23/24 03:42 Labs: Short CBC 08/22/24 08/22/24 Range/Units 10:33 11:13 WBC 15.6 H 14.6 H (3.6-11.0) Thou/mm3 Hgb 3.8 L* 3.7 L* (12.0-16.0) g/dL Hct 13.2 L* 13.1 L* (36.0-46.0) % Plt Count 141 127 L (140-440) Thou/mm3 BMP 08/22/24 08/22/24 10:33 12:47 Sodium 130 L Potassium 6.0 H 6.3 H* Chloride 101 Carbon Dioxide 18.1 L BUN 90 H Creatinine 2.7 H Glucose 461 H* Calcium 8.2 L Liver Function 08/22/24 Range/Units 10:33 Total Bilirubin 1.1 (0.3-1.2) mg/dL AST 58 H (0-34) U/L ALT 52 H (10-49) U/L Alkaline Phosphatase 135 H (46-116) U/L Albumin 2.9 L (3.4-4.8) gm/dL Urine 08/22/24 Range/Units 11:01 Urine Color Yellow (Lt Yel-Yel) Urine Clarity Turbid A (Clear/Hazy) Urine pH 5.0 (5.0-7.0) Ur Specific [place] 1.016 (1.001-1.035) Urine Protein Trace (Neg - Trace) Urine Glucose (UA) Negative (Negative) ABG Interpretation ABG results: 08/22/24 14:52 ABG pH 7.33 L ABG pCO2 37 ABG pO2 142 H ABG HCO3 20 ABG O2 Saturation 101 H ABG Base Excess -6 L Assessment and Plan Additional Assessment & Plan Additional Plan: Acute posthemorrhagic anemia Hematemesis Hematochezia Plan Fiberoptic esophagogastroduodenoscopy with possible therapeutic intervention possible biopsy under intravenous moderate sedation Other medical problems include Pulmonary embolism on Eliquis Coronary artery disease stable angina Hyperlipidemia Hypertension Dementia Thank you for the opportunity to participate in the care of this patient
[2024-08-22 17:16] LABS: Hepatitis A Antibody IgM Non Reactive (Non React); Hepatitis B Core Antibody IgM Non Reactive (Non React); Hepatitis B Surface Antigen Non Reactive (Non React); Hepatitis C Antibody Non Reactive (Non React)
--- NOTE | 2024-08-22 17:58 | PC.NURSE ---
tx started w/ initiation of transfusion of 1 unit of prbc
--- NOTE | 2024-08-22 18:07 | PD.RESCONSUL ---
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 Information gathered from chart review. Reported that the patient has had about a 1 week duration of cough for which she presented to her PCP who thought that she was fluid overloaded and started her on Lasix which did not alleviate her cough. Additionally, patient's [id number] mentioned that she noticed that she had been having multiple episodes of bloody stools in the past which she has not sought attention for. Today however, she was noted to have had multiple episodes of vomiting, one of the episodes having blood clots as well as epistaxis which resolved with holding pressure. Due to these new symptoms, the patient was brought to the ED for further management. ED course ED, patient was noted to be hypothermic with a temperature of 92.1 and slightly tachypneic. The Byorn hugger was placed on hypothermia. Initial labs showed a hemoglobin of 3.7 with elevated potassium at 6.0, bicarb of 18.1, creatinine of 2.7, glucose of 461 and lactic acid of 5.4. ICU was consulted as patient's blood pressure was consistently softer even after receiving IV fluids and for concern of hemorrhagic/hypovolemic shock. IR was consulted for hemodialysis catheter But eventually was placed by ICU. cc:: cc: Matheus Vera MD Review of Systems Review of Systems ROS Unobtainable: unobtainable due to mental status Exam Vital Signs Temp Pulse Resp BP Pulse Ox O2 Del Method O2 Flow Rate 97.9 F 93 20 130/68 100 Nasal Cannula 2 08/22/24 18:01 08/22/24 18:01 08/22/24 18:01 08/22/24 18:01 08/22/24 18:01 08/22/24 16:00 08/22/24 18:01 Narrative Exam GENERAL: Awake and alert, confused, unable to follow commands, somnonlent, elderly and ill looking NEURO: unable to asses due to mental status HEENT: Eyes open, symmetrical, & clear. Dry mucosa HEART: RRR, no obvious murmurs LUNGS: CTAB/L, with no wheezing or crackles. ABDOMEN: soft, non-distended, PEG tube in place SKIN: No Rash or ecchymoses, decubitus sacral ulcer EXTREMITIES: No edema, tenderness, able to move all 4 extremities, pedal pulses palpated, multiple bruising from previous fall Results Labs 08/23/24 03:42 08/23/24 03:42 Labs: Short CBC 08/22/24 08/22/24 Range/Units 10:33 11:13 WBC 15.6 H 14.6 H (3.6-11.0) Thou/mm3 Hgb 3.8 L* 3.7 L* (12.0-16.0) g/dL Hct 13.2 L* 13.1 L* (36.0-46.0) % Plt Count 141 127 L (140-440) Thou/mm3 BMP 08/22/24 08/22/24 10:33 12:47 Sodium 130 L Potassium 6.0 H 6.3 H* Chloride 101 Carbon Dioxide 18.1 L BUN 90 H Creatinine 2.7 H Glucose 461 H* Calcium 8.2 L Liver Function 08/22/24 Range/Units 10:33 Total Bilirubin 1.1 (0.3-1.2) mg/dL AST 58 H (0-34) U/L ALT 52 H (10-49) U/L Alkaline Phosphatase 135 H (46-116) U/L Albumin 2.9 L (3.4-4.8) gm/dL Urine 08/22/24 Range/Units 11:01 Urine Color Yellow (Lt Yel-Yel) Urine Clarity Turbid A (Clear/Hazy) Urine pH 5.0 (5.0-7.0) Ur Specific [place] 1.016 (1.001-1.035) Urine Protein Trace (Neg - Trace) Urine Glucose (UA) Negative (Negative) ABG Interpretation ABG results: 08/22/24 14:52 ABG pH 7.33 L ABG pCO2 37 ABG pO2 142 H ABG HCO3 20 ABG O2 Saturation 101 H ABG Base Excess -6 L Quality Measures Quality Measures none Advance care planning discussed with:: other Medications Home Medications and Allergies Home Medications ?Medication ?Instructions ?Recorded ?Confirmed ?Type raloxifene 60 mg tablet (Evista) 60 mg feeding tube QAM #0 tabs 10/14/16 12/30/23 History simvastatin 40 mg tablet (Zocor) 40 mg feeding tube QPM #0 tabs 10/14/16 12/30/23 History gabapentin 300 mg capsule 300 mg PO TID 09/28/22 12/30/23 History mirtazapine 15 mg tablet 15 mg feeding tube BID 02/22/23 12/30/23 History tramadol 50 mg tablet 100 mg feeding tube Q12H 02/22/23 12/30/23 History donepezil 5 mg tablet 10 mg PO QDAY 05/08/23 12/30/23 History ferrous sulfate 325 mg (65 mg 325 mg feeding tube QDAY 05/08/23 12/30/23 History iron) tablet (FeroSul) misoprostol 200 mcg tablet 200 mcg feeding tube TID 05/08/23 12/30/23 History amlodipine 5 mg tablet 2.5 mg PO QDAY 12/23/23 12/30/23 History ascorbic acid (vitamin C) 500 mg 500 mg PO QDAY 12/23/23 12/30/23 History tablet (Vitamin C) brexpiprazole 0.5 mg tablet 0.5 mg feeding tube QPM 12/23/23 12/30/23 History (Rexulti) buspirone 15 mg tablet 15 mg feeding tube TID 12/23/23 12/30/23 History fenofibrate 54 mg tablet 54 mg feeding tube QPM 12/23/23 12/30/23 History trazodone 50 mg tablet 50 mg feeding tube HS 12/23/23 12/30/23 History suvorexant 15 mg tablet (Belsomra) 15 mg PO QDAY 12/30/23 12/30/23 History Allergies Allergy/AdvReac Type Severity Reaction Status Date / Time No Known Allergies Allergy Verified 12/22/23 16:50 Visit Medications Acetaminophen (Acetaminophen Leni 325 Mg/10 Ml Udc) 650 mg GT Q6HR PRN PRN Reason: Fever >100.4 or pain Stop: 09/21/24 15:54 Dextrose (Dextrose 50%-Water Inj 50 Ml Syringe) 50 ml IV Q15MIN PRN PRN Reason: BG <50 OR BG <70 & pt unresponsive Stop: 09/21/24 12:22 Dextrose (Dextrose 50%-Water Inj 50 Ml Syringe) 25 ml IV Q15MIN PRN PRN Reason: BG 50-70 responsive npo pt Stop: 09/21/24 12:25 Glucagon (Glucagon Inj 1 Mg Vial) 1 mg IM Q15MIN PRN PRN Reason: BG <70, and no IV access Ceftriaxone Sodium 1,000 mg/ (Sodium Chloride) 50 mls @ 100 mls/hr IV QDAY MANUEL Stop: 08/30/24 08:59 Albumin Human (Albuminar-25 Ivpb) 25 gm in 100 mls @ 100 mls/min IV PRN PRN PRN Reason: DIALYSIS Insulin Glargine (Insulin Glargine (Lantus) 5 Unit/0.05 Ml (Per 5 Units)) 10 unit SC HS [facility] Stop: 09/21/24 20:59 Insulin Human Lispro (Insulin Lispro (Admelog) 1 Unit/0.01 Ml Unit) 0 unit SC Q6HR MANUEL; Protocol Stop: 09/21/24 16:27 Last Admin: 08/22/24 17:46 Dose: Not Given Home Medication- Please Speak With Patient Caregiver To Have Rx Brought To [facility] 0.5 mg NG HS [facility] Stop: 09/21/24 20:59 Ondansetron HCl (Ondansetron Inj 2 Mg/Ml Inj 2 Ml) 4 mg IV Q6HR PRN; Protocol PRN Reason: NAUSEA OR VOMITING Stop: 09/21/24 15:54 Pantoprazole Sodium (Pantoprazole Inj 40 Mg Vial) 40 mg IVP Q12HR MANUEL Stop: 09/21/24 20:59 Discontinued Medications Albuterol/Ipratropium (Albuterol/Ipratropium (Duoneb) Rt Leni 3 Ml Nebu) 10 ml INH X1 ONE Stop: 08/22/24 12:27 Last Admin: 08/22/24 12:56 Dose: 10 ml Calcium Gluconate (Calcium Gluconate 10% Inj 1 Gm/10 Ml Vial) 1 gm IV X1 ONE Stop: 08/22/24 12:27 Last Admin: 08/22/24 13:56 Dose: 1 gm Dextrose (Dextrose 50%-Water Inj 50 Ml Syringe) 25 ml IV Q15MIN PRN PRN Reason: BG 50-70 responsive npo pt Stop: 09/21/24 12:22 Dextrose (Dextrose 50%-Water Inj 50 Ml Syringe) 50 ml IV X1 ONE Stop: 08/22/24 12:27 Last Admin: 08/22/24 13:52 Dose: 50 ml Glucagon (Glucagon Inj 1 Mg Vial) 1 mg IM Q15MIN PRN PRN Reason: BG <70, and no IV access Ceftriaxone Sodium 1,000 mg/ (Sodium Chloride) 50 mls @ 100 mls/hr IV X1 ONE Stop: 08/22/24 12:23 Last Infusion: 08/22/24 15:34 Dose: Infused Lactated Ringer's (Lactated Ringers) 1,000 mls @ 2,000 mls/hr IV .Q30M ONE Stop: 08/22/24 12:25 Last Infusion: 08/22/24 15:02 Dose: Infused Dextrose (D10w 1000 Ml) 1,000 mls @ 100 mls/hr IV .Q10H MANUEL Stop: 08/22/24 22:29 Last Admin: 08/22/24 17:42 Dose: Not Given Lactated Ringer's (Lactated Ringers) 1,000 mls @ 999 mls/hr IV .Q1H1M ONE Stop: 08/22/24 15:09 Last Admin: 08/22/24 16:47 Dose: 999 mls/hr Prothrombin Complex Concent ( Human) 2,000 unit/ Sterile Water 80 ml/ IV Miscellaneous Supplies 80 mls @ 320 mls/hr IV X1 ONE Stop: 08/22/24 15:17 Last Infusion: 08/22/24 15:57 Dose: Infused Insulin Human Lispro (Insulin Lispro (Admelog) 1 Unit/0.01 Ml Unit) 0 unit SC Q6H MANUEL; Protocol Stop: 09/21/24 12:29 Last Admin: 08/22/24 15:16 Dose: 4 unit Insulin Human Regular (Insulin Hum Regular 1 Unit/0.01 Ml (Per Unit)) 0 unit SC Q6H MANUEL; Protocol Stop: 09/21/24 12:29 Insulin Human Regular (Insulin Hum Regular 1 Unit/0.01 Ml (Per Unit)) 5 unit IV X1 ONE Stop: 08/22/24 12:27 Last Admin: 08/22/24 13:27 Dose: Not Given Insulin Human Regular (Insulin Hum Regular 1 Unit/0.01 Ml (Per Unit)) 10 unit IV X1 ONE Stop: 08/22/24 13:26 Last Admin: 08/22/24 13:51 Dose: 10 unit Insulin Human Regular (Insulin Hum Regular 1 Unit/0.01 Ml (Per Unit)) 10 unit IV X1 ONE Stop: 08/22/24 17:40 Last Admin: 08/22/24 17:43 Dose: 10 unit Home Medication- Please Speak With Patient Caregiver To Have Rx Brought To [facility] 0.5 mg PO HS MANUEL Stop: 09/21/24 20:59 Pantoprazole Sodium (Pantoprazole Inj 40 Mg Vial) 40 mg IVP X1 ONE Stop: 08/22/24 12:15 Last Admin: 08/22/24 14:07 Dose: 40 mg Sodium Bicarbonate (Sodium Bicarb Inj 8.4% 1 Meq/Ml 50 Ml Vial) 50 meq IV X1 ONE Stop: 08/22/24 12:27 Last Admin: 08/22/24 13:56 Dose: 50 meq Sodium Bicarbonate (Sodium Bicarb Inj 8.4% Syr 50 Ml Syringe) 50 ml IV X1 ONE Stop: 08/22/24 13:39 Last Admin: 08/22/24 13:58 Dose: Not Given Assessment & Plan Plan Summary: The patient is an 88-year-old female with a past medical history of hypertension, hyperlipidemia, 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 #Acute blood loss anemia #Acute kidney injury #Hypotension, likely hemorrhagic/hypovolemic Patient presenting with confusion, multiple episodes of bloody stool, vomiting. Initial labs in the ED showed anemia with hemoglobin of 3.8. Blood pressure was also on the soft side, patient received about 2 L of IV fluids, with MAP improving. Hemodialysis catheter placed in the rght IJ. Plan: -Transfuse 4 unts of pRBCs as planned -Continue monitoring H&H -Hemodialysis as scheduled by nephrology -Rosendo tanner on to improve hypothermia Case was discussed with attending physician, Dr Darnell Hubbard MD PGY-1 Disclaimer: This note was dictated by speech recognition. Minor errors in shrimp boat captain may be present due to voice recognition software. Attending Provider Attestation/Addendum pt seen and examined in ER. case d/w floor team and ICU team. in brief this is a 88yo F who presents to the ER for n/v and BRBPR. pt has a h/o eliquis use and was brought in for active bleed. Her Hb was found to be 3 and initially had a soft BP however responded well to IVF and PRBCs. She was coagulopathic and recs were for KCENTRA . She presented with FIDEL and hyperK and urgent HD was recommended per nephrology. IR was unable to place a line and therefore ICU was requested for HD cath placement. please see seperate note. overall condition d/w family at bedside including code status. CPR and life support explained and family would like to proceed with full code at this time. Currently however pt is stable and does not require ICU level of care. Should this change please dont hesitate to call. case d/w floor team and ER labs, imaging, records reviewed ~55min required for eval, exam, review, intervention, discussion and formulation of POC for this acutely ill pt with active bleed
--- NOTE | 2024-08-22 18:16 | PC.NURSE ---
Addendum entered by Ramone Cavanaugh RN 08/22/24 18:18: bp cont. to drop, uf goal lowered as pt unable tolerate uf increase to account for fluid Original Note: 2nd unit of prbc infusion started
[2024-08-22] MEDS: HEPARIN SOD INJ 1000 UNIT/ML VIAL 10 ML 2600 UNIT INDWELLCAT (19:47)
[2024-08-22 21:00] LABS: Chloride,Urine Random < 20.0 mMol/L (55.0-125.0); Creatinine,Random Urine 73 mg/dL (30-125); Potassium,Urine Random 52 mMol/L (12-62); Sodium,Urine Random < 10.0 mMol/L (20.0-110.0)
[2024-08-22 21:43] LABS: Lactate (Lactic Acid) 4.1 mMol/L (0.4-2.0)
[2024-08-22 21:45] LABS: Alanine Aminotransferase 48 U/L (10-49); Albumin, Serum 2.9 gm/dL (3.4-4.8); Albumin/Globulin Ratio 1.2 (1.2-2.2); Alkaline Phosphatase 132 U/L (46-116); Anion Gap 11 (7-16); Aspartate Amino Transferase 59 U/L (0-34); BUN/Creatinine Ratio 24 Ratio (12-20); Bilirubin,Total 2.3 mg/dL (0.3-1.2); Blood Urea Nitrogen 39 mg/dL (9-23); Calcium 8.1 mg/dL (8.3-10.6); Carbon Dioxide 24.6 mMol/L (20.0-31.0); Chloride 100 mMol/L (98-107); Creatinine (Component) 1.6 mg/dL (0.6-1.3); Estimated Creatinine Clearance 21.5 mL/min (>60); Globulin 2.5 gm/dL (2.3-3.5); Glucose 213 mg/dL (74-106); Magnesium 2.6 mg/dL (1.6-2.6); Osmolality,Calculated 287 (275-295); Phosphorous 2.8 mg/dL (2.4-5.1); Sodium 136 mMol/L (136-145); Total Protein 5.4 gm/dL (5.7-8.2); eGFR 31 See Note
[2024-08-22 21:48] LABS: Basophils # (Auto) 0.1 Thou/mm3 (0.0-0.2); Basophils % (Auto) 0 % (0-2.5); Eosinophils % (Auto) 0 % (0-10); Hematocrit 35.3 % (36.0-46.0); Hemoglobin 11.7 g/dL (12.0-16.0); Immature Granulocytes % (Auto) 3 % (0-0); Immature Granulocytes Auto 0.38 Thou/mm3 (0.00-0.00); Lymphocytes # (Auto) 0.5 Thou/mm3 (1.0-4.8); Lymphocytes % (Auto) 4 % (10-50); Mean Corpuscular HGB Conc 33.1 g/dl (31.0-37.0); Mean Corpuscular Hemoglobin 30.2 pg (25.0-35.0); Mean Corpuscular Volume 91 fL (80-100); Monocytes # (Auto) 1.7 Thou/mm3 (0.0-0.8); Monocytes % (Auto) 12 % (0-12); Neutrophils # (Auto) 11.3 Thou/mm3 (1.8-7.7); Neutrophils % (Auto) 81 % (37-80); Nucleated Red Blood Cell # 1.16 Thou/mm3 (0.00-0.00); Nucleated Red Blood Cell % 8 /100 WBC (0); RDW Standard Deviation 48.2 fL (36.4-46.3); Red Blood Count 3.88 Miln/mm3 (4.00-5.20); White Blood Count 13.9 Thou/mm3 (3.6-11.0)
--- NOTE | 2024-08-22 22:03 | XR_ITS ---
Examination: CT brain head without contrast. 2-D sagittal coronal reconstructions Date and time of exam:August 22, 2024 10:20 PM Indications: Altered mental status today CTDI: vol (mGy):47.7 DLP: (mGycm):8 3 Technique: Multiple CT axial sections of the brain have been obtained, 5 mm slice thickness. Contrast has not been administered. 2-D sagittal, coronal reconstructions have been obtained Low dose protocols were performed. One or more of the following dose reduction techniques were used; automated exposure control, adjustment of the mA and/or KV according to patient size, use of iterative reconstruction technique. Findings: No significant ventricular enlargement. Intra-axial or extra-axial hemorrhage density is not seen. No mass effect or midline shift Basal cisterns are not remarkable. Fourth ventricle is midline. Cranial vault intact. Impression: Negative for acute hemorrhage, mass effect or midline shift Advise clinical correlation follow-up accordingly
[2024-08-22 22:17] LABS: Platelet Count 65 Thou/mm3 (140-440)
[2024-08-22 22:19] LABS: Slide Review Platelets confirmed
--- NOTE | 2024-08-22 23:07 | PC.NURSE ---
Pt taken to CT on monitor by myself and testing director. no problems.
[2024-08-23] VITALS (24 sets, daily range): BP systolic 105–148; BP diastolic 51–97; PULSE 82–138; RESP 10–20; TEMP 36–36.8; O2SAT 93–100
[2024-08-23 00:13] LABS: Reflex Lactate? Y
--- NOTE | 2024-08-23 00:32 | PC.NURSE ---
Pts resident care provider at bedside. She states pt is looking much better. Pt VS are stable. Pt appears in NAD.
[2024-08-23 00:43] LABS: Lactic Acid, 3 HR 2.6 mMol/L (0.4-2.0)
[2024-08-23 00:56] LABS: Hematocrit 33.1 % (36.0-46.0); Hemoglobin 11.3 g/dL (12.0-16.0)
--- NOTE | 2024-08-23 01:14 | PC.NURSE ---
report called to nuclear medicine technician.
--- NOTE | 2024-08-23 02:03 | PC.NURSE ---
report called and pt taken to [id number] by myself on relief cook.
[2024-08-23 03:59] LABS: Lactate (Lactic Acid) 2.1 mMol/L (0.4-2.0)
[2024-08-23 04:09] LABS: Basophils % (Auto) 0 % (0-2.5); Eosinophils % (Auto) 0 % (0-10); Hematocrit 33.3 % (36.0-46.0); Hemoglobin 11.3 g/dL (12.0-16.0); Immature Granulocytes % (Auto) 2 % (0-0); Immature Granulocytes Auto 0.19 Thou/mm3 (0.00-0.00); Lymphocytes # (Auto) 0.6 Thou/mm3 (1.0-4.8); Lymphocytes % (Auto) 5 % (10-50); Mean Corpuscular HGB Conc 33.9 g/dl (31.0-37.0); Mean Corpuscular Hemoglobin 30.5 pg (25.0-35.0); Mean Corpuscular Volume 90 fL (80-100); Monocytes # (Auto) 1.6 Thou/mm3 (0.0-0.8); Monocytes % (Auto) 14 % (0-12); Neutrophils # (Auto) 9.6 Thou/mm3 (1.8-7.7); Neutrophils % (Auto) 80 % (37-80); Nucleated Red Blood Cell # 0.66 Thou/mm3 (0.00-0.00); Nucleated Red Blood Cell % 6 /100 WBC (0); RDW Standard Deviation 48.6 fL (36.4-46.3); Red Blood Count 3.71 Miln/mm3 (4.00-5.20)
[2024-08-23 04:16] LABS: INR 1.6 (0.9-1.3); Partial Thromboplastin Time 31.9 Seconds (22.0-36.0); Prothrombin Time 17.1 Seconds (9.0-12.2)
[2024-08-23 04:19] LABS: Platelet Count 61 Thou/mm3 (140-440); Slide Review Platelets confirmed
[2024-08-23 04:20] LABS: Alanine Aminotransferase 50 U/L (10-49); Albumin, Serum 2.9 gm/dL (3.4-4.8); Albumin/Globulin Ratio 1.2 (1.2-2.2); Alkaline Phosphatase 131 U/L (46-116); Anion Gap 10 (7-16); Aspartate Amino Transferase 66 U/L (0-34); BUN/Creatinine Ratio 26 Ratio (12-20); Bilirubin,Total 2.3 mg/dL (0.3-1.2); Blood Urea Nitrogen 42 mg/dL (9-23); Calcium (Corrected) 8.9 mg/dL (8.5-10.1); Carbon Dioxide 27.1 mMol/L (20.0-31.0); Chloride 102 mMol/L (98-107); Creatinine (Component) 1.6 mg/dL (0.6-1.3); Estimated Creatinine Clearance 21.5 mL/min (>60); Globulin 2.4 gm/dL (2.3-3.5); Glucose 158 mg/dL (74-106); Magnesium 2.8 mg/dL (1.6-2.6); Osmolality,Calculated 291 (275-295); Potassium 4.3 mMol/L (3.4-5.1); Sodium 139 mMol/L (136-145); Total Protein 5.3 gm/dL (5.7-8.2); eGFR 31 See Note
--- NOTE | 2024-08-23 04:22 | EKG_ITS ---
[facility] Test Date: 2024-08-23 Pat Name: YANNICK DIXON Department: Room: S278A Gender: Female Marker Maker: DIEGO : 1935 Requested By: Lukas De Leon Order Number: [id number] Reading MD: Lukas De Leon Measurements Intervals [place] Rate: 94 P: 60 OK: 159 QRS: 0 QRSD: 134 T: 28 QT: 406 QTc: 510 Interpretive Statements SINUS RHYTHM WITH FREQUENT SUPRAVENTRICULAR PREMATURE COMPLEXES INDETERMINATE AXIS RIGHT BUNDLE BRANCH BLOCK Compared to ECG 08/22/2024 11:21:10 Indeterminate axis now present Sinus bradycardia no longer present /store/S0/[id number]/[id number].pdf
[2024-08-23 06:57] LABS: Reflex Lactate? Y
[2024-08-23 08:11] LABS: Lactic Acid, 3 HR 1.4 mMol/L (0.4-2.0)
[2024-08-23] MEDS: PANTOPRAZOLE INJ 40 MG VIAL IVP ×2 (09:36→20:06)
[2024-08-23] MEDS: cefTRIAXone 1,000 MG in SODIUM CHLORIDE 0.9% (Popper) 50 ML 100 MG IV (09:36)
[2024-08-23 10:22] LABS: Lactate (Lactic Acid) 1.1 mMol/L (0.4-2.0)
[2024-08-23] MEDS: INSULIN LISPRO (AdmeLOG) 1 UNIT/0.01 ML UNIT SC (12:21)
--- NOTE | 2024-08-23 13:11 | PD.RESPRO ---
Documentation for date of: 08/23/24 Subjective Subjective Interval history: Ms. Dyer is a 88-year-old female with past medical history of hypertension, hyperlipidemia, pulmonary embolism on Eliquis, dementia, insomnia presented to the hospital with chief complaints of nausea, vomiting, diarrhea since 1 day. At baseline patient was bedbound and have severe dementia, taken care by her [id number]. Patient was apparently at her baseline 1 day ago. Yesterday, daughter noted patient is having episodes of epistaxis and resolved after applying pressure to it. This morning patient was found to have blood pressure of 100/40 for which her blood pressure medications were not given and later patient found to have 2 episodes of vomiting with blood in it. [id number] also stated that she noticed brownish discoloration of stools this morning. Later found to have bloody stools. Denies fever, shortness of breath, chest pain, palpitations ED Course: -Initial vitals were blood pressure 155/63 mmHg, pulse rate 67/min, respiratory rate 22/min, temperature 92.1 ?F, SpO2 100% with 2 L oxygen -Labs significant for WBC 14.6, Hb 3.7, platelets 127, sodium 130, potassium 6.3, bicarb 18.1, BUN 90, creatinine 2.7, glucose 461, lactate 5.1, AST 58, ALT 52, procalcitonin 0.56 -Urine analysis showed turbid urine with 77 WBC -Chest x ray did not show any patchy infiltrates -In the ED, patient was given hyperkalemic treatment Nephrology was consulted in view of acute kidney injury 08/23/2024 Patient was seen and examined bedside Her sensorium improved from yesterday and is able to answer questions appropriately No acute overnight events. Denies any other complaints Patient received 4 PRBC transfusions yesterday and hemodialysis session On physical examination, patient appears to be fluid overloaded with bilateral pedal edema 4+ extending into the thigh 1 dose of furosemide 40 Mg IV is given Exam Vital Signs Temp Pulse Resp BP Pulse Ox O2 Del Method O2 Flow Rate 96.8 F 83 10 L 143/89 H 99 Room Air 2 08/23/24 12:53 08/23/24 12:53 08/23/24 12:53 08/23/24 12:53 08/23/24 12:53 08/23/24 08:00 08/23/24 04:00 Narrative Exam General: Awake. HEENT: Normocephalic, atraumatic, mucous membranes moist. Heart: Regular rate and rhythm, no murmurs. Lungs: Clear to auscultation with no wheezing or crackles. Abdomen: Soft, nondistended, nontender, positive bowel sounds. ?No guarding or rebound tenderness. Neurologic: Alert and oriented x3, no gross neurological deficit, and patient able to move all 4 extremities. Extremities: B/l pitting pedal edema extending upto knee Skin: No rash or ecchymoses. Objective Labs 08/23/24 03:42 08/23/24 03:42 Labs: Laboratory Results - last 24 hr 08/22/24 08/22/24 08/22/24 10:33 11:05 11:13 WBC RBC Hgb Hct MCV MCH MCHC RDW Std Deviation Plt Count Neut % (Auto) Lymph % (Auto) Addison % (Auto) Eos % (Auto) Baso % (Auto) Neut # (Auto) Lymph # (Auto) Addison # (Auto) Eos # (Auto) Baso # (Auto) Immature Gran # (Auto) Absolute Nucleated RBC Immature Gran % Nucleated RBC % Smear Path Review Sent to Pathologist PT > 63.0 H* INR APTT 56.0 H Puncture Site ABG pH ABG pCO2 ABG pO2 ABG HCO3 ABG O2 Saturation ABG Base Excess Oxygen Liter Flow Sodium Potassium Chloride Carbon Dioxide Anion Gap BUN Creatinine Estim Creat Clear Calc eGFR BUN/Creatinine Ratio Glucose Estimated Ave Glu mg/dL Hemoglobin A1c Calculated Osmolality Lactic Acid Calcium Corrected Calcium Phosphorus Magnesium Total Bilirubin AST ALT Alkaline Phosphatase Total Protein Albumin Globulin Albumin/Globulin Ratio Beta-Hydroxybutyrate/Acetoacetate Ur Random Creatinine 73 Ur Random Sodium < 10.0 L Ur Random Potassium 52 Ur Random Chloride < 20.0 L Hepatitis A IgM Ab Hep Bs Antigen Hep B Core IgM Ab Hepatitis C Antibody Misc Test Result Blood Type A Positive Antibody Screen NEGATIVE Crossmatch See Detail Blood Bank Wristband ID Yes Blood Bank Comment PLATP Ready 08/22/24 08/22/24 08/22/24 12:47 13:57 14:52 WBC RBC Hgb Hct MCV MCH MCHC RDW Std Deviation Plt Count Neut % (Auto) Lymph % (Auto) Addison % (Auto) Eos % (Auto) Baso % (Auto) Neut # (Auto) Lymph # (Auto) Addison # (Auto) Eos # (Auto) Baso # (Auto) Immature Gran # (Auto) Absolute Nucleated RBC Immature Gran % Nucleated RBC % Smear Path Review PT INR APTT Puncture Site Right Radial ABG pH 7.33 L ABG pCO2 37 ABG pO2 142 H ABG HCO3 20 ABG O2 Saturation 101 H ABG Base Excess -6 L Oxygen Liter Flow 2 Sodium Potassium 6.3 H* Chloride Carbon Dioxide Anion Gap BUN Creatinine Estim Creat Clear Calc eGFR BUN/Creatinine Ratio Glucose Estimated Ave Glu mg/dL Hemoglobin A1c Calculated Osmolality Lactic Acid 5.1 H* Calcium Corrected Calcium Phosphorus Magnesium Total Bilirubin AST ALT Alkaline Phosphatase Total Protein Albumin Globulin Albumin/Globulin Ratio Beta-Hydroxybutyrate/Acetoacetate 0.4 Ur Random Creatinine Ur Random Sodium Ur Random Potassium Ur Random Chloride Hepatitis A IgM Ab Non Reactive Hep Bs Antigen Non Reactive Hep B Core IgM Ab Non Reactive Hepatitis C Antibody Non Reactive Misc Test Result Blood Type Antibody Screen Crossmatch Blood Bank Wristband ID Blood Bank Comment 08/22/24 08/22/24 08/23/24 16:28 21:08 00:27 WBC 13.9 H RBC 3.88 L Hgb 11.7 L D 11.3 L Hct 35.3 L D 33.1 L MCV 91 MCH 30.2 MCHC 33.1 RDW Std Deviation 48.2 H Plt Count 65 L D Neut % (Auto) 81 H Lymph % (Auto) 4 L Addison % (Auto) 12 Eos % (Auto) 0 Baso % (Auto) 0 Neut # (Auto) 11.3 H Lymph # (Auto) 0.5 L Addison # (Auto) 1.7 H Eos # (Auto) 0.0 Baso # (Auto) 0.1 Immature Gran # (Auto) 0.38 H Absolute Nucleated RBC 1.16 H Immature Gran % 3 H Nucleated RBC % 8 H Smear Path Review PT INR APTT Puncture Site ABG pH ABG pCO2 ABG pO2 ABG HCO3 ABG O2 Saturation ABG Base Excess Oxygen Liter Flow Sodium 136 Potassium 4.0 D Chloride 100 Carbon Dioxide 24.6 Anion Gap 11 BUN 39 H Creatinine 1.6 H D Estim Creat Clear Calc 21.5 L eGFR 31 L BUN/Creatinine Ratio 24 H Glucose [address] Glu mg/dL Cancelled Hemoglobin A1c Cancelled Calculated Osmolality 287 Lactic Acid 4.1 H* 2.6 H Calcium 8.1 L Corrected Calcium 9.0 Phosphorus 2.8 Magnesium 2.6 Total Bilirubin 2.3 H D AST 59 H ALT 48 Alkaline Phosphatase 132 H Total Protein 5.4 L Albumin 2.9 L Globulin 2.5 Albumin/Globulin Ratio 1.2 Beta-Hydroxybutyrate/Acetoacetate Ur Random Creatinine Ur Random Sodium Ur Random Potassium Ur Random Chloride Hepatitis A IgM Ab Hep Bs Antigen Hep B Core IgM Ab Hepatitis C Antibody Misc Test Result Platelets confirmed Blood Type Antibody Screen Crossmatch Blood Bank Wristband ID Blood Bank Comment 08/23/24 08/23/24 08/23/24 03:42 07:50 10:15 WBC 12.0 H RBC 3.71 L Hgb 11.3 L Hct 33.3 L MCV 90 MCH 30.5 MCHC 33.9 RDW Std Deviation 48.6 H Plt Count 61 L Neut % (Auto) 80 Lymph % (Auto) 5 L Addison % (Auto) 14 H Eos % (Auto) 0 Baso % (Auto) 0 Neut # (Auto) 9.6 H Lymph # (Auto) 0.6 L Addison # (Auto) 1.6 H Eos # (Auto) 0.0 Baso # (Auto) 0.0 Immature Gran # (Auto) 0.19 H Absolute Nucleated RBC 0.66 H Immature Gran % 2 H Nucleated RBC % 6 H Smear Path Review PT 17.1 H D INR 1.6 H APTT 31.9 D Puncture Site ABG pH ABG pCO2 ABG pO2 ABG HCO3 ABG O2 Saturation ABG Base Excess Oxygen Liter Flow Sodium 139 Potassium 4.3 Chloride 102 Carbon Dioxide 27.1 Anion Gap 10 BUN 42 H Creatinine 1.6 H Estim Creat Clear Calc 21.5 L eGFR 31 L BUN/Creatinine Ratio 26 H Glucose [address] Glu mg/dL Hemoglobin A1c Calculated Osmolality 291 Lactic Acid 2.1 H 1.4 1.1 Calcium 8.0 L Corrected Calcium 8.9 Phosphorus 3.0 Magnesium 2.8 H Total Bilirubin 2.3 H AST 66 H ALT 50 H Alkaline Phosphatase 131 H Total Protein 5.3 L Albumin 2.9 L Globulin 2.4 Albumin/Globulin Ratio 1.2 Beta-Hydroxybutyrate/Acetoacetate Ur Random Creatinine Ur Random Sodium Ur Random Potassium Ur Random Chloride Hepatitis A IgM Ab Hep Bs Antigen Hep B Core IgM Ab Hepatitis C Antibody Misc Test Result Platelets confirmed Blood Type Antibody Screen Crossmatch Blood Bank Wristband ID Blood Bank Comment ABG Interpretation ABG results: 08/22/24 14:52 ABG pH 7.33 L ABG pCO2 37 ABG pO2 142 H ABG HCO3 20 ABG O2 Saturation 101 H ABG Base Excess -6 L Quality Measures Quality Measures VTE prophylaxis (sCDs) Advance care planning discussed with:: patient Assessment & Plan Assessment Current Active Medications: Generic Name Dose Route Start Last Admin Trade Name Freq PRN Reason Stop Dose Admin Acetaminophen 650 mg 08/22/24 15:55 Acetaminophen Leni 325 Mg/10 Ml Udc GT 09/21/24 15:54 Q6HR PRN Fever >100.4 or pain Dextrose 50 ml 08/22/24 12:23 Dextrose 50%-Water Inj 50 Ml Syringe IV 09/21/24 12:22 Q15MIN PRN BG <50 OR BG <70 & pt unresponsive Dextrose 25 ml 08/22/24 12:26 Dextrose 50%-Water Inj 50 Ml Syringe IV 09/21/24 12:25 Q15MIN PRN BG 50-70 responsive npo pt Glucagon 1 mg 08/22/24 12:26 Glucagon Inj 1 Mg Vial IM Q15MIN PRN BG <70, and no IV access Heparin Sodium (Porcine) 2,600 unit 08/22/24 18:43 08/22/24 19:47 Heparin Sod Inj 1000 Unit/Ml Vial 10 Ml INDWELLCAT 09/05/24 18:42 2,600 unit PRN PRN Administration DIALYSIS Ceftriaxone Sodium 1,000 mg/ 50 mls @ 100 mls/hr 08/23/24 09:00 08/23/24 09:36 Sodium Chloride IV 08/30/24 08:59 100 mls/hr QDAY MANUEL Administration Albumin Human 25 gm in 100 mls @ 100 mls/min 08/22/24 14:55 Albuminar-25 Ivpb IV PRN PRN DIALYSIS Insulin Glargine 10 unit 08/22/24 21:00 08/22/24 21:00 Insulin Glargine (Lantus) 5 Unit/0.05 Ml (Per 5 Units) SC 09/21/24 20:59 Not Given HS MANUEL Insulin Human Lispro 0 unit 08/22/24 16:28 08/23/24 12:21 Insulin Lispro (Admelog) 1 Unit/0.01 Ml Unit SC 09/21/24 16:27 3 unit Q6HR MANUEL Administration Protocol Home Medication- 0.5 mg 08/22/24 21:00 08/22/24 21:00 Please Speak With NG 09/21/24 20:59 Not Given Patient Caregiver To MANUEL Have Rx Brought To [facility] Pantoprazole Sodium 40 mg 08/22/24 21:00 08/23/24 09:36 Pantoprazole Inj 40 Mg Vial IVP 09/21/24 20:59 40 mg Q12HR MANUEL Administration Scopolamine 1 mg 08/23/24 08:18 Scopolamine 1 Mg Tdsy TOP 09/22/24 08:29 Q3D PRN vomiting Plan A 88-year-old female with past medical history of hypertension, hyperlipidemia, pulmonary embolism on Eliquis, dementia, insomnia presented to the hospital with chief complaints of nausea, vomiting, diarrhea since 1 day. # Acute kidney injury on Ckd stage IIIb, resolving Likely prerenal FIDEL vs ATN in the setting of anemia, GI bleed -Brought to the hospital with complaints of nausea, vomiting, diarrhea and bloody stools. -Baseline creatinine on 06/2024 is 1.2 -On the day of admission, 08/22/2024 creatinine 2.7, BUN 90 > 08/23, BUN 42, Cr 1.6 -Patient also noted to have improving urine output Plan -In view of hyperkalemia, decreased urine output and FIDEL, recommended to do hemodialysis on 08/23/2023 -As patient's renal functions are getting better, will hold off on dialysis for today -Recommended 1 dose of Lasix 40 Mg IV in view of for blood transfusions yesterday and patient appears to be fluid overloaded -Continue to monitor urine output and renal functions -Avoid nephrotoxic medication and renally dose medications # Hyperkalemia, resolved -Potassium at the time of admission is 6, repeat potassium is 6.3 -Received hyperkalemic treatment and hemodialysis on 08/22/2024 -Potassium is 4.3 on 08/23/2024, recommended to monitor electrolytes #Non AnionGap Metabolic acidosis, resolved #Lactic acidosis, resolved -Bicarb at the time of admission is 18.1, Lactic acid is 5.4 on 08/22/2024 -On 08/23/2024, Bicarb and potassium is WNL -Monitor electrolytes #Acute encephalopathy, multifactorial #Acute severe blood loss anemia, likely lower GI #Hypotension #Lactic acidosis, type A #UTI #Hyperglycemia #Elevated transaminases #Elevated T. bili #Hypertension #HLD #Generalized weakness #Osteoarthritis #Wheelchair-bound #Failure to thrive #PEG tube placed in december 2023 #Dementia #Insomnia #Generalized anxiety disorder #Sacral decubitus ulcer #Decubitus ulcer left hip #Hx PE on Eliquis -Rest of the medical conditions to be treated as per primary team Thank you for allowing us to involve in the care of the patient Patient plan of care was discussed with the attending physician, Dr. Keven Peters, PGY1 Attending Provider Attestation/Addendum Patient seen and examined with resident physician Dr. Lassiter. Note reviewed, agree with findings and recommendations. Labs, medications reviewed. Patient more alert and awake after 1 dialysis session. Urine output 550 mL in the last 12 hours. Hold off on dialysis and watch for renal recovery. Plan of care discussed with hospitalist team.
--- NOTE | 2024-08-23 13:14 | ESPR_ITS ---
Documentation for date of: 08/23/24 Subjective Subjective Interval history: Patient was seen and examined at the bedside. She was more awake and oriented this morning. Vitals showed improvement in blood pressure. Patient was afebrile and was saturating around 98% on 2 L NC. Labs showed significant improvement in hemoglobin to 11.3 and leukocytosis with white count 12.0. Platelets dropped to 61. Coagulation panel showed INR 1.6. Chemistry panel was unremarkable. Kidney function showed improvement with BUN 42 and creatinine 1.6 post temporary dialysis. Lactic acid down trended. Hep panel was negative. Head CT came negative. Block Tester recommended to hold off on dialysis today as patient made good urine output of 550 cc.We will continue with ceftriaxone for UTI. Blood cultures are coming negative x 24 hours. Urine cultures are pending. Block Tester gave dose of Lasix 40 mg IV x 1 as examination revealed bilateral pitting edema 4+ up to thighs. GI specialist plan to do EGD today. Will follow with further recommendations. Some of the home medications were reconciled. All labs and orders were reviewed. Exam Vital Signs Temp Pulse Resp BP Pulse Ox O2 Del Method O2 Flow Rate 98.2 F 83 14 141/55 H 99 Room Air 2 08/23/24 13:10 08/23/24 13:10 08/23/24 13:10 08/23/24 13:10 08/23/24 12:53 08/23/24 08:00 08/23/24 04:00 Narrative Exam GENERAL: elderly ill appearing demented female, more alert this morning. Not fully oriented. NEURO: unable to asses due to mental status HEENT: Atraumatic, Normocephalic. mucous membranes moist. Eyes open, symmetrical, & clear HEART: Regular rate and regular rhythm. No murmurs/rubs/gallops, S1-S2 LUNGS: Clear to auscultation with no wheezing or crackles. ABDOMEN: soft, non-distended, non-tender, bowel sounds heard, no guarding or rebound tenderness, PEG tube in place SKIN: No Rash or ecchymoses, decubitus sacral ulcer EXTREMITIES: No edema, tenderness, able to move all 4 extremities, pedal pulses palpated, multiple bruising from fall. 2+ bilateral pitting edema Objective Labs 08/23/24 03:42 08/23/24 03:42 Labs: Laboratory Results - last 24 hr 08/22/24 08/22/24 08/22/24 10:33 11:05 11:13 WBC RBC Hgb Hct MCV MCH MCHC RDW Std Deviation Plt Count Neut % (Auto) Lymph % (Auto) [place] % (Auto) Eos % (Auto) Baso % (Auto) Neut # (Auto) Lymph # (Auto) [place] # (Auto) Eos # (Auto) Baso # (Auto) Immature Gran # (Auto) Absolute Nucleated RBC Immature Gran % Nucleated RBC % Smear Path Review Sent to Pathologist PT > 63.0 H* INR APTT 56.0 H Puncture Site ABG pH ABG pCO2 ABG pO2 ABG HCO3 ABG O2 Saturation ABG Base Excess Oxygen Liter Flow Sodium Potassium Chloride Carbon Dioxide Anion Gap BUN Creatinine Estim Creat Clear Calc eGFR BUN/Creatinine Ratio Glucose Estimated Ave Glu mg/dL Hemoglobin A1c Calculated Osmolality Lactic Acid Calcium Corrected Calcium Phosphorus Magnesium Total Bilirubin AST ALT Alkaline Phosphatase Total Protein Albumin Globulin Albumin/Globulin Ratio Beta-Hydroxybutyrate/Acetoacetate Ur Random Creatinine 73 Ur Random Sodium < 10.0 L Ur Random Potassium 52 Ur Random Chloride < 20.0 L Hepatitis A IgM Ab Hep Bs Antigen Hep B Core IgM Ab Hepatitis C Antibody Misc Test Result Blood Type A Positive Antibody Screen NEGATIVE Crossmatch See Detail Blood Bank Wristband ID Yes Blood Bank Comment PLATP Ready 08/22/24 08/22/24 08/22/24 13:57 14:52 16:28 WBC RBC Hgb Hct MCV MCH MCHC RDW Std Deviation Plt Count Neut % (Auto) Lymph % (Auto) [place] % (Auto) Eos % (Auto) Baso % (Auto) Neut # (Auto) Lymph # (Auto) [place] # (Auto) Eos # (Auto) Baso # (Auto) Immature Gran # (Auto) Absolute Nucleated RBC Immature Gran % Nucleated RBC % Smear Path Review PT INR APTT Puncture Site Right Radial ABG pH 7.33 L ABG pCO2 37 ABG pO2 142 H ABG HCO3 20 ABG O2 Saturation 101 H ABG Base Excess -6 L Oxygen Liter Flow 2 Sodium Potassium Chloride Carbon Dioxide Anion Gap BUN Creatinine Estim Creat Clear Calc eGFR BUN/Creatinine Ratio Glucose Estimated Ave Glu mg/dL Cancelled Hemoglobin A1c Cancelled Calculated Osmolality Lactic Acid 5.1 H* Calcium Corrected Calcium Phosphorus Magnesium Total Bilirubin AST ALT Alkaline Phosphatase Total Protein Albumin Globulin Albumin/Globulin Ratio Beta-Hydroxybutyrate/Acetoacetate 0.4 Ur Random Creatinine Ur Random Sodium Ur Random Potassium Ur Random Chloride Hepatitis A IgM Ab Non Reactive Hep Bs Antigen Non Reactive Hep B Core IgM Ab Non Reactive Hepatitis C Antibody Non Reactive Misc Test Result Blood Type Antibody Screen Crossmatch Blood Bank Wristband ID Blood Bank Comment 08/22/24 08/23/24 08/23/24 21:08 00:27 03:42 WBC 13.9 H 12.0 H RBC 3.88 L 3.71 L Hgb 11.7 L D 11.3 L 11.3 L Hct 35.3 L D 33.1 L 33.3 L MCV 91 90 MCH 30.2 30.5 MCHC 33.1 33.9 RDW Std Deviation 48.2 H 48.6 H Plt Count 65 L D 61 L Neut % (Auto) 81 H 80 Lymph % (Auto) 4 L 5 L [place] % (Auto) 12 14 H Eos % (Auto) 0 0 Baso % (Auto) 0 0 Neut # (Auto) 11.3 H 9.6 H Lymph # (Auto) 0.5 L 0.6 L [place] # (Auto) 1.7 H 1.6 H Eos # (Auto) 0.0 0.0 Baso # (Auto) 0.1 0.0 Immature Gran # (Auto) 0.38 H 0.19 H Absolute Nucleated RBC 1.16 H 0.66 H Immature Gran % 3 H 2 H Nucleated RBC % 8 H 6 H Smear Path Review PT 17.1 H D INR 1.6 H APTT 31.9 D Puncture Site ABG pH ABG pCO2 ABG pO2 ABG HCO3 ABG O2 Saturation ABG Base Excess Oxygen Liter Flow Sodium 136 139 Potassium 4.0 D 4.3 Chloride 100 102 Carbon Dioxide 24.6 27.1 Anion Gap 11 10 BUN 39 H 42 H Creatinine 1.6 H D 1.6 H Estim Creat Clear Calc 21.5 L 21.5 L eGFR 31 L 31 L BUN/Creatinine Ratio 24 H 26 H Glucose 213 H D [address] Glu mg/dL Hemoglobin A1c Calculated Osmolality 287 291 Lactic Acid 4.1 H* 2.6 H 2.1 H Calcium 8.1 L 8.0 L Corrected Calcium 9.0 8.9 Phosphorus 2.8 3.0 Magnesium 2.6 2.8 H Total Bilirubin 2.3 H D 2.3 H AST 59 H 66 H ALT 48 50 H Alkaline Phosphatase 132 H 131 H Total Protein 5.4 L 5.3 L Albumin 2.9 L 2.9 L Globulin 2.5 2.4 Albumin/Globulin Ratio 1.2 1.2 Beta-Hydroxybutyrate/Acetoacetate Ur Random Creatinine Ur Random Sodium Ur Random Potassium Ur Random Chloride Hepatitis A IgM Ab Hep Bs Antigen Hep B Core IgM Ab Hepatitis C Antibody Misc Test Result Platelets confirmed Platelets confirmed Blood Type Antibody Screen Crossnvtch Blood Bank Wristband ID Blood Bank Comment 08/23/24 08/23/24 07:50 10:15 WBC RBC Hgb Hct MCV MCH MCHC RDW Std Deviation Plt Count Neut % (Auto) Lymph % (Auto) [place] % (Auto) Eos % (Auto) Baso % (Auto) Neut # (Auto) Lymph # (Auto) [place] # (Auto) Eos # (Auto) Baso # (Auto) Immature Gran # (Auto) Absolute Nucleated RBC Immature Gran % Nucleated RBC % Smear Path Review PT INR APTT Puncture Site ABG pH ABG pCO2 ABG pO2 ABG HCO3 ABG O2 Saturation ABG Base Excess Oxygen Liter Flow Sodium Potassium Chloride Carbon Dioxide Anion Gap BUN Creatinine Estim Creat Clear Calc eGFR BUN/Creatinine Ratio Glucose Estimated Ave Glu mg/dL Hemoglobin A1c Calculated Osmolality Lactic Acid 1.4 1.1 Calcium Corrected Calcium Phosphorus Magnesium Total Bilirubin AST ALT Alkaline Phosphatase Total Protein Albumin Globulin Albumin/Globulin Ratio Beta-Hydroxybutyrate/Acetoacetate Ur Random Creatinine Ur Random Sodium Ur Random Potassium Ur Random Chloride Hepatitis A IgM Ab Hep Bs Antigen Hep B Core IgM Ab Hepatitis C Antibody Misc Test Result Blood Type Antibody Screen Crossnvtch Blood Bank Wristband ID Blood Bank Comment ABG Interpretation ABG results: 08/22/24 14:52 ABG pH 7.33 L ABG pCO2 37 ABG pO2 142 H ABG HCO3 20 ABG O2 Saturation 101 H ABG Base Excess -6 L Quality Measures Quality Measures VTE prophylaxis (sCDs) Advance care planning discussed with:: other Assessment & Plan Assessment Current Active Medications: Generic Name Dose Route Start Last Admin Trade Name Freq PRN Reason Stop Dose Admin Acetaminophen 650 mg 08/22/24 15:55 Acetaminophen Leni 325 Mg/10 Ml Udc GT 09/21/24 15:54 Q6HR PRN Fever >100.4 or pain Dextrose 50 ml 08/22/24 12:23 Dextrose 50%-Water Inj 50 Ml Syringe IV 09/21/24 12:22 Q15MIN PRN BG <50 OR BG <70 & pt unresponsive Dextrose 25 ml 08/22/24 12:26 Dextrose 50%-Water Inj 50 Ml Syringe IV 09/21/24 12:25 Q15MIN PRN BG 50-70 responsive npo pt Furosemide 40 mg 08/23/24 13:12 Furosemide Inj 10 Mg/Ml 4ml Vial IVP 08/23/24 13:13 X1 ONE Glucagon 1 mg 08/22/24 12:26 Glucagon Inj 1 Mg Vial IM Q15MIN PRN BG <70, and no IV access Heparin Sodium (Porcine) 2,600 unit 08/22/24 18:43 08/22/24 19:47 Heparin Sod Inj 1000 Unit/Ml Vial 10 Ml INDWELLCAT 09/05/24 18:42 2,600 unit PRN PRN Administration DIALYSIS Ceftriaxone Sodium 1,000 mg/ 50 mls @ 100 mls/hr 08/23/24 09:00 08/23/24 09:36 Sodium Chloride IV 08/30/24 08:59 100 mls/hr QDAY MANUEL Administration Albumin Human 25 gm in 100 mls @ 100 mls/min 08/22/24 14:55 Albuminar-25 Ivpb IV PRN PRN DIALYSIS Insulin Glargine 10 unit 08/22/24 21:00 08/22/24 21:00 Insulin Glargine (Lantus) 5 Unit/0.05 Ml (Per 5 Units) SC 09/21/24 20:59 Not Given [facility] Insulin Human Lispro 0 unit 08/22/24 16:28 08/23/24 12:21 Insulin Lispro (Admelog) 1 Unit/0.01 Ml Unit SC 09/21/24 16:27 3 unit Q6HR MANUEL Administration Protocol Home Medication- 0.5 mg 08/22/24 21:00 08/22/24 21:00 Please Speak With NG 09/21/24 20:59 Not Given Patient Caregiver To [facility] Have Rx Brought To [facility] Pantoprazole Sodium 40 mg 08/22/24 21:00 08/23/24 09:36 Pantoprazole Inj 40 Mg Vial IVP 09/21/24 20:59 40 mg Q12HR MANUEL Administration Scopolamine 1 mg 08/23/24 08:18 Scopolamine 1 Mg Tdsy TOP 09/22/24 08:29 Q3D PRN vomiting Plan Ms. Blanca is a 88 year old female with past medical history significant for hypertension, hyperlipidemia, history of pulmonary embolism on Eliquis 5 mg, dementia, insomnia and generalized weakness (wheelchair-bound) presented to the ED due to altered mental status, nausea vomiting with blood clot and diarrhea with multiple episodes of hematochezia. #Acute encephalopathy, multifactorial, improved -DDx: Acute renal failure with azotemia, acute blood loss anemia, polypharmacy, hyperglycemia, UTI, hypotension -On admission, pt was not at her baseline mentation where she is responsive and converses with family members, although this morning pt was able to express symptoms of abdominal pain but progressively became altered and became more somlament -Head CT was negative for acute bleed -Patient is more awake and alert this morning -Hemoglobin and blood sugar stable -Treating underlying infection -Holding home medications -Holding off dialysis today per nephro recs #Acute severe blood loss anemia, likely lower GI, resolved #Hypotension DDx: Hemorrhoids, diverticular bleed, Eliquis use, peptic ulcer disease -Pt has several episodes of hemotaozia for a few days and episodes of blood tinge diarrhea -on admission Hgb 3.7 and Hct -lactic acid down trended, due to volume loss in the setting of blood loss - 4 units of pRBCs and PCC were given -Protonix every 12 hourly -post transfusion H&H was 11.1 -Plan for EGD per GI recs -PRBC if hemoglobin drops below 7 -Iron panel, B12 and folate were within normal range -SCDs for DVT prophylaxis #Lactic acidosis, type A, resolved ? 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 Urinalysis was showing pyuria with positive leukocyte esterase. -Per patient's [id number] patient was having symptoms of discomfort during urination. Procalcitonin was 0.56 -Blood cultures, negative x 24 hours -Started IV ceftriaxone once daily -Follow-up on urine cultures #NAGMA, resolved -Likely due to ARF ?Patient presented with acidosis bicarb of 18. ABGs showed pH 7.33 -Improved post temporary dialysis -Holding diuretics and transfusing blood #?CHF -Chest x-ray was suggestive for positive fluid balance with probable trace fluid in the right fissure. CHF pattern. Worsening pulmonary edema with increased interstitial markings. -BNP was mildly elevated -Echo from 2022 showed EF 65-70% with stage I diastolic dysfunction -Dose of Lasix given 40 mg x 1 -Ordered echocardiogram to evaluate heart functions -Performing temporary dialysis -Gentle IV fluids were given -Strict NICOLÁS's -Aspiration precautions -Nasopharyngeal suctioning -Chest PT #Electrolyte disturbances #Pseudo hyponatremia, resolved #Hyperkalemia, resolved -Related to ARF, blood loss, hyperglycemia -on admission pt's potassium was 6.5. EKG showed sinus bradycardia with RBBB. Corrected sodium for glucose 136 -pt is given breathing treatment, 10 units of insulin, calcium gluconate and sodium Bicarb - Vas-Cath placed by ICU engineering group manager -Electrolytes improved postdialysis -will repeat labs and closely monitor -nephrology is following #Hyperglycemia,Resolved -Pt does not have history of DM and her blood sugar on admission are 461 -Lispro 6 units given, and insulin sliding scale ordered -A1c is not in good indicated marker in the setting of acute blood loss -Blood sugars significantly improved #Hypothermia, resolved -Pt temperature on admission is 92.1 liekly due to hypoperfusion in the setting of volume loss -Bear hugger was used -Monitoring temperature closely #Elevated transaminases #Elevated T. bili -Total bilirubin: Was 1.1 increased to 2.3 -AST and ALT mildly elevated -Liver ultrasound from 2022 showed CBD 0.4 cm. 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 -Likely due to blood loss, medications, liver -Avoid hepatotoxic agents -Treating ARF -Hep panel came negative #Hypertension #HLD #Generalized weakness #Osteoarthritis #Wheelchair-bound -will hold antihypertensive medications due to hypotension in the setting of volume loss -Holding on pain medications as mentation has slightly improved this morning #Failure to thrive #PEG tube placed in december 2023 -Pt has history of decreased oral intake and PEG tube was placed for tube feeds -Recently patient's formula feed for PEG tube was replace per patient's [id number], was previously on fiber plus -Dietitian consult is placed, and will resume tube feeds once EGD is completed #Dementia #Insomnia #Generalized anxiety disorder -Pt has history of dementia due to that pt often becomes combative -Will restart donepezil and tramadol, holding mirtazapine, trazodone and buspirone -Mentation has improved today -Restraints due to patient's pulling out lines -Resume Rexulti given concern for combative behavior #Sacral decubitus ulcer #Decubitus ulcer left hip -Patient has sacral decubitus ulcer covered in surgical dressing. Plan: -referral to wound care placed -Frequent repositioning -Vitamin C zinc sulfate #Hx PE on Eliquis -will hold home eliquis due to GI bleed -PCC complex given for reversal Health Maintenance Disposition: Patient is admitted for further workup and management of acute encephalopathy, acute blood loss anemia, ARF and UTI. Nephrology is following and treating infection and awaiting EGD. Mentation and kidney functions improved. DVT Prophylaxis: SCDs GI Prophylaxis: Pantoprozol-40 IV BID Diet: NPO Lines: Peripheral lines Code status: Full Patient was seen and discussed with attending physician, Dr. Kings Kahn MD, PGY 2 Attending Provider Attestation/Addendum I have examined the patient, reviewed labs and imaging findings, discussed the case with the resident(s), and reviewed entered orders. I agree with the plan of care as outlined in this note, with these additional summaries/recommendations: Patient appears more alert and responsive today. Hemoglobin remained stable after transfusion of 4 units PRBCs. No additional episodes of bleeding per nursing staff. Pending further GI recommendations and scope to determine source, continue to trend hemoglobin and hematocrit and monitor for signs of bleeding. Walt Ku MD
--- NOTE | 2024-08-23 14:42 | PC.DIETICIAN ---
Nutrition Prescription: Vital AF 1.2 at 20 ml/hr x 24 hrs (do not advance). If no IV fluids, water flushes 25 ml/hr (or per MD). If no electrolytes disturbances after 24 hrs, advance 10 ml every 12 hrs to goal rate of 50 ml/hr x 24 hrs. Continue with water flushes 25 ml/hr (or per MD).
--- NOTE | 2024-08-23 15:14 | SUR.PHASEI ---
150 patient to pacu via gurney, vvs, peg tube intact, patient spontaneously moves extremities, will monitor
--- NOTE | 2024-08-23 15:40 | SUR.PHASEI ---
1540 patient to telemetry in stable condition, dressing x2 4x4 to abd, CDI
[2024-08-23] MEDS: NA SU/NAHCO3/KC/PEG (Golytely) 4,000 ML BTL 4000 ML GT (18:34)
[2024-08-23] MEDS: FUROSEMIDE INJ 10 MG/ML 4ML VIAL 40 MG IVP (18:40)
[2024-08-23] MEDS: METOPROLOL TARTRATE INJ 1 MG/ML AMP 5 ML 2.5 MG IVP (20:05)
[2024-08-23] MEDS: DONEPEZIL HCL 5 MG TABLET 10 MG PO (20:07)
[2024-08-23] MEDS: ASCORBIC ACID 250 MG TABLET 500 MG PO (20:07)
[2024-08-24] VITALS (19 sets, daily range): BP systolic 94–220; BP diastolic 58–114; PULSE 71–92; RESP 15–98; TEMP 36.1–36.8; O2SAT 94–99
[2024-08-24] MEDS: DiphenhydrAMINE INJ 50 MG/ML VIAL 25 MG IV (03:31)
[2024-08-24] MEDS: NA SU/NAHCO3/KC/PEG (Golytely) 4,000 ML BTL 4000 ML GT (04:50)
[2024-08-24 05:48] LABS: Basophils % (Auto) 0 % (0-2.5); Eosinophils # (Auto) 0.1 Thou/mm3 (0.0-0.5); Eosinophils % (Auto) 1 % (0-10); Hematocrit 31.8 % (36.0-46.0); Hemoglobin 10.5 g/dL (12.0-16.0); Immature Granulocytes % (Auto) 1 % (0-0); Immature Granulocytes Auto 0.13 Thou/mm3 (0.00-0.00); Lymphocytes # (Auto) 0.6 Thou/mm3 (1.0-4.8); Lymphocytes % (Auto) 7 % (10-50); Mean Corpuscular Hemoglobin 30.2 pg (25.0-35.0); Mean Corpuscular Volume 91 fL (80-100); Monocytes # (Auto) 1.1 Thou/mm3 (0.0-0.8); Monocytes % (Auto) 12 % (0-12); Neutrophils # (Auto) 7.5 Thou/mm3 (1.8-7.7); Neutrophils % (Auto) 80 % (37-80); Nucleated Red Blood Cell # 0.18 Thou/mm3 (0.00-0.00); Nucleated Red Blood Cell % 2 /100 WBC (0); RDW Standard Deviation 54.1 fL (36.4-46.3); Red Blood Count 3.48 Miln/mm3 (4.00-5.20); White Blood Count 9.4 Thou/mm3 (3.6-11.0)
[2024-08-24 05:49] LABS: Platelet Count 68 Thou/mm3 (140-440)
[2024-08-24 05:50] LABS: Slide Review Platelets confirmed
[2024-08-24 06:08] LABS: Alanine Aminotransferase 52 U/L (10-49); Albumin, Serum 2.9 gm/dL (3.4-4.8); Albumin/Globulin Ratio 1.2 (1.2-2.2); Alkaline Phosphatase 193 U/L (46-116); Anion Gap 13 (7-16); Aspartate Amino Transferase 68 U/L (0-34); BUN/Creatinine Ratio 25 Ratio (12-20); Bilirubin,Total 2.2 mg/dL (0.3-1.2); Blood Urea Nitrogen 37 mg/dL (9-23); Calcium 8.6 mg/dL (8.3-10.6); Calcium (Corrected) 9.5 mg/dL (8.5-10.1); Carbon Dioxide 28.1 mMol/L (20.0-31.0); Chloride 104 mMol/L (98-107); Creatinine (Component) 1.5 mg/dL (0.6-1.3); Globulin 2.5 gm/dL (2.3-3.5); Glucose 111 mg/dL (74-106); Magnesium 2.6 mg/dL (1.6-2.6); Osmolality,Calculated 298 (275-295); Phosphorous 2.8 mg/dL (2.4-5.1); Potassium 3.3 mMol/L (3.4-5.1); Sodium 145 mMol/L (136-145); Total Protein 5.4 gm/dL (5.7-8.2); eGFR 34 See Note
[2024-08-24] MEDS: cefTRIAXone 1,000 MG in SODIUM CHLORIDE 0.9% (Popper) 50 ML 100 MG IV ×2 (08:07→15:23)
[2024-08-24] MEDS: PANTOPRAZOLE INJ 40 MG VIAL IVP ×2 (08:07→20:46)
[2024-08-24] MEDS: ZINC SULFATE 220 MG CAPSULE PO (08:08)
[2024-08-24] MEDS: ASCORBIC ACID 250 MG TABLET 500 MG PO ×2 (08:08→20:46)
[2024-08-24] MEDS: METOPROLOL TARTRATE 25 MG TABLET 12.5 MG PO ×2 (08:08→20:47)
[2024-08-24] MEDS: POTASSIUM CHLORIDE 10% 20 MEQ/15 ML UDC 40 MEQ GT (10:17)
[2024-08-24] MEDS: VANCOMYCIN/NS 1 GM IVPB 200 ML IV (10:17)
--- NOTE | 2024-08-24 11:25 | ESPR_ITS ---
Documentation for date of: 08/24/24 Subjective Subjective Interval history: Overnight team reported patient became agitated and was pulling on lines therefore mittens were ordered and olanzapine 2.5 mg x 1 was given. Overnight team also reported patient went into A-fib and instead of starting amiodarone patient was given metoprolol 2.5 mg IVP which converted patient into sinus rhythm therefore patient was started on metoprolol 12.5 mg p.o. twice daily. Patient seen and examined at bedside this morning patient is awake and has restraints on. currently saturating above 95% on 1L O2. Vital signs are stable and labs are reviewed and are stable with the exception of hypokalemia and 40 meq is repleted. BUN is 37 and creatinine is 1.5 which is mildly improved from yesterday. Last evening patient's PEG tube was replaced due to malfunctioning and patient is undergoing GoLytely prep to undergo colonoscopy to investigate source of bleeding. Preliminary blood cultures growing GPC and MRSA nares is positive patient continues on ceftriaxone and vancomycin is added renally dosed. Exam Vital Signs Temp Pulse Resp BP Pulse Ox O2 Del Method O2 Flow Rate 97.3 F 83 16 110/82 98 Room Air 1 08/24/24 08:00 08/24/24 08:08 08/24/24 08:00 08/24/24 08:08 08/24/24 08:00 08/24/24 08:00 08/24/24 00:00 Narrative Exam GENERAL: elderly female, awake and confused NEURO: unable to asses due to mental status HEENT: Atraumatic, Normocephalic. mucous membranes moist. Eyes open, symmetrical, & clear HEART: Regular rate and regular rhythm. No murmurs/rubs/gallops, S1-S2 LUNGS: Clear to auscultation with no wheezing or crackles. ABDOMEN: soft, non-distended, non-tender, bowel sounds heard, no guarding or rebound tenderness, PEG tube in place SKIN: No Rash or ecchymoses, decubitus sacral ulcer EXTREMITIES: No edema, tenderness, able to move all 4 extremities, pedal pulses palpated, multiple bruising from fall. 1+ bilateral pitting edema Objective Labs 08/24/24 04:45 08/24/24 04:45 Labs: Laboratory Results - last 24 hr 08/22/24 08/24/24 11:13 04:45 WBC 9.4 RBC 3.48 L Hgb 10.5 L Hct 31.8 L MCV 91 MCH 30.2 MCHC 33.0 RDW Std Deviation 54.1 H Plt Count 68 L Neut % (Auto) 80 Lymph % (Auto) 7 L [place] % (Auto) 12 Eos % (Auto) 1 Baso % (Auto) 0 Neut # (Auto) 7.5 Lymph # (Auto) 0.6 L [place] # (Auto) 1.1 H Eos # (Auto) 0.1 Baso # (Auto) 0.0 Immature Gran # (Auto) 0.13 H Absolute Nucleated RBC 0.18 H Immature Gran % 1 H Nucleated RBC % 2 H Sodium 145 Potassium 3.3 L D Chloride 104 Carbon Dioxide 28.1 Anion Gap 13 BUN 37 H Creatinine 1.5 H Estim Creat Clear Calc 18.0 L eGFR 34 L BUN/Creatinine Ratio 25 H Glucose 111 H Calculated Osmolality 298 H Calcium 8.6 Corrected Calcium 9.5 Phosphorus 2.8 Magnesium 2.6 Total Bilirubin 2.2 H AST 68 H ALT 52 H Alkaline Phosphatase 193 H D Total Protein 5.4 L Albumin 2.9 L Globulin 2.5 Albumin/Globulin Ratio 1.2 Misc Test Result Platelets confirmed Blood Type A Positive Antibody Screen NEGATIVE Crossmatch See Detail Blood Bank Wristband ID Yes Blood Bank Comment PLATP Ready ABG Interpretation ABG results: 08/22/24 14:52 ABG pH 7.33 L ABG pCO2 37 ABG pO2 142 H ABG HCO3 20 ABG O2 Saturation 101 H ABG Base Excess -6 L Quality Measures Quality Measures VTE prophylaxis (sCDs) Advance care planning discussed with:: child Assessment & Plan Assessment Current Active Medications: Generic Name Dose Route Start Last Admin Trade Name Freq PRN Reason Stop Dose Admin Acetaminophen 650 mg 08/23/24 14:13 Acetaminophen Leni 325 Mg/10 Ml Udc GT 09/21/24 15:54 Q6HR PRN Fever >100.4 or pain (1-3) Ascorbic Acid 500 mg 08/23/24 21:00 08/24/24 08:08 Ascorbic Acid 250 Mg Tablet PO 09/22/24 20:59 500 mg BID MANUEL Administration Dextrose 50 ml 08/22/24 12:23 Dextrose 50%-Water Inj 50 Ml Syringe IV 09/21/24 12:22 Q15MIN PRN BG <50 OR BG <70 & pt unresponsive Dextrose 25 ml 08/22/24 12:26 Dextrose 50%-Water Inj 50 Ml Syringe IV 09/21/24 12:25 Q15MIN PRN BG 50-70 responsive npo pt Donepezil HCl 10 mg 08/23/24 21:00 08/23/24 20:07 Donepezil Hcl 5 Mg Tablet PO 09/22/24 20:59 10 mg HS MANUEL Administration Glucagon 1 mg 08/22/24 12:26 Glucagon Inj 1 Mg Vial IM Q15MIN PRN BG <70, and no IV access Heparin Sodium (Porcine) 2,600 unit 08/22/24 18:43 08/22/24 19:47 Heparin Sod Inj 1000 Unit/Ml Vial 10 Ml INDWELLCAT 09/05/24 18:42 2,600 unit PRN PRN Administration DIALYSIS Ceftriaxone Sodium 1,000 mg/ 50 mls @ 100 mls/hr 08/23/24 09:00 08/24/24 08:07 Sodium Chloride IV 08/30/24 08:59 100 mls/hr QDAY MANUEL Administration Albumin Human 25 gm in 100 mls @ 100 mls/min 08/22/24 14:55 Albuminar-25 Ivpb IV PRN PRN DIALYSIS Insulin Glargine 10 unit 08/22/24 21:00 08/23/24 20:09 Insulin Glargine (Lantus) 5 Unit/0.05 Ml (Per 5 Units) [place] 09/21/24 20:59 Not Given [facility] Insulin Human Lispro 0 unit 08/22/24 16:28 08/24/24 08:34 Insulin Lispro (Admelog) 1 Unit/0.01 Ml Unit SC 09/21/24 16:27 Not Given Q6HR [facility] Protocol Metoprolol Tartrate 12.5 mg 08/24/24 03:05 08/24/24 08:08 Metoprolol Tartrate 25 Mg Tablet PO 09/23/24 03:04 12.5 mg BID MANUEL Administration Home Medication- 0.5 mg 08/22/24 21:00 08/23/24 20:08 Please Speak With NG 09/21/24 20:59 Not Given Patient Caregiver To [facility] Have Rx Brought To [facility] Pantoprazole Sodium 40 mg 08/22/24 21:00 08/24/24 08:07 Pantoprazole Inj 40 Mg Vial IVP 09/21/24 20:59 40 mg Q12HR MANUEL Administration Pharmacy Consult 1 each 08/24/24 09:00 Vancomycin Pharmacy To Dose 1 Each Each IV 09/23/24 08:59 QDAY PRN CONSULT Scopolamine 1 mg 08/23/24 08:18 Scopolamine 1 Mg Tdsy TOP 09/22/24 08:29 Q3D PRN vomiting Tramadol HCl 50 mg 08/23/24 14:12 Tramadol Hcl 50 Mg Tablet PO 08/28/24 14:11 Q6HR PRN PAIN SCALE 4-10(Mod-Sev Zinc Sulfate 220 mg 08/24/24 09:00 08/24/24 08:08 Zinc Sulfate 220 Mg Capsule PO 09/23/24 08:59 220 mg QDAY [facility] Administration Plan Ms. Blanca is a 88 year old female with past medical history significant for hypertension, hyperlipidemia, history of pulmonary embolism on Eliquis 5 mg, dementia, insomnia and generalized weakness (wheelchair-bound) presented to the ED due to altered mental status, nausea vomiting with blood clot and diarrhea with multiple episodes of hematochezia. #Acute encephalopathy, multifactorial, improved -DDx: Acute renal failure with azotemia, acute blood loss anemia, polypharmacy, hyperglycemia, UTI, hypotension -On admission, pt was not at her baseline mentation where she is responsive and converses with family members, although this morning pt was able to express symptoms of abdominal pain but progressively became altered and became more somnolent -Head CT was negative for acute bleed -Patient is more awake and alert this morning -Hemoglobin and blood sugar stable -Treating underlying infection -Holding home medications -Holding off dialysis today per nephro recs #Acute severe blood loss anemia, likely lower GI, resolved #Hypotension DDx: Hemorrhoids, diverticular bleed, Eliquis use, peptic ulcer disease -Pt has several episodes of hemotaozia for a few days and episodes of blood tinge diarrhea -on admission Hgb 3.7 and Hct -lactic acid down trended, due to volume loss in the setting of blood loss - 4 units of pRBCs and PCC were given -Protonix every 12 hourly -post transfusion H&H was 11.1 -PRBC if hemoglobin drops below 7 -Iron panel, B12 and folate were within normal range -SCDs for DVT prophylaxis -PEG tube replaced on 08/23 and golytly prep started for pending colonoscopy -GI consulted, appreciate recommendations #Worsening FIDEL with azotemia likely prerenal, improved -Underlying history of CKD stage IIIb?4 DDx: Prerenal causes: Blood loss, hypotension, diuretics, renal causes: ATN -On admission, BUN 90, creatinine 2.7 and GFR 17, likely prerenal in the setting of bloodloss/volume loss -2L bolus LR given and blood transfusion ordered -Holding of dialysis per nephrology recommendations -Dose of Lasix 40 mg given x 1 per nephro recs as patient had bilateral lower extremity swelling/edema -Strict NICOLÁS's -Avoid nephrotoxic agents, renally dose medications -Nephrology consulted, appreciate recommendations -Improved post temporary dialysis #UTI -Urinalysis was showing pyuria with positive leukocyte esterase. -Per patient's [id number] patient was having symptoms of discomfort during urination. Procalcitonin was 0.56 -Blood cultures grew GPC -Urine cultures grew klebsiella -MRSA nares + -Vancomycin started 08/24- -Started IV ceftriaxone once daily 08/23- #Lactic acidosis, type A, resolved ? Likely related to blood loss -Lactic acid was 5.4--> 5.1 due to volume loss in the setting of blood loss -Lactic acid down trended #NAGMA, resolved -Likely due to ARF ?Patient presented with acidosis bicarb of 18. ABGs showed pH 7.33 -Improved post temporary dialysis -Holding diuretics and transfusing blood #?CHF -Chest x-ray was suggestive for positive fluid balance with probable trace fluid in the right fissure. CHF pattern. Worsening pulmonary edema with increased interstitial markings. -BNP was mildly elevated -Echo from 2022 showed EF 65-70% with stage I diastolic dysfunction -Dose of Lasix given 40 mg x 1 -Ordered echocardiogram to evaluate heart functions -Performing temporary dialysis -Gentle IV fluids were given -Strict NICOLÁS's -Aspiration precautions -Nasopharyngeal suctioning -Chest PT #Electrolyte disturbances #Pseudo hyponatremia, resolved #Hyperkalemia, resolved -Related to ARF, blood loss, hyperglycemia -on admission pt's potassium was 6.5. EKG showed sinus bradycardia with RBBB. Corrected sodium for glucose 136 -pt is given breathing treatment, 10 units of insulin, calcium gluconate and sodium Bicarb - Vas-Cath placed by ICU forest nursery supervisor -Electrolytes improved post-dialysis -will repeat labs and closely monitor -nephrology is following #Hyperglycemia,Resolved -Pt does not have history of DM and her blood sugar on admission are 461 -Lispro 6 units given, and insulin sliding scale ordered -A1c is not in good indicated marker in the setting of acute blood loss -Blood sugars significantly improved #Hypothermia, resolved -Pt temperature on admission is 92.1 liekly due to hypoperfusion in the setting of volume loss -Bear hugger was used -Monitoring temperature closely #Elevated transaminases #Elevated T. bili -Total bilirubin: Was 1.1 increased to 2.3 -AST and ALT mildly elevated -Liver ultrasound from 2022 showed CBD 0.4 cm. 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 -Likely due to blood loss, medications, liver -Avoid hepatotoxic agents -Treating ARF -Hep panel came negative #Hypertension #HLD #Generalized weakness #Osteoarthritis #Wheelchair-bound -will hold antihypertensive medications due to hypotension in the setting of volume loss -Holding on pain medications as mentation has slightly improved this morning #Failure to thrive #PEG tube placed in december 2023 -Pt has history of decreased oral intake and PEG tube was placed for tube feeds -Recently patient's formula feed for PEG tube was replace per patient's [id number], was previously on fiber plus -Dietitian consult is placed, and will resume tube feeds once EGD is completed #Dementia #Insomnia #Generalized anxiety disorder -Pt has history of dementia due to that pt often becomes combative -Will restart donepezil and tramadol, holding mirtazapine, trazodone and buspirone -Mentation has improved today -Restraints due to patient's pulling out lines -Resume Rexulti given concern for combative behavior #Sacral decubitus ulcer #Decubitus ulcer left hip -Patient has sacral decubitus ulcer covered in surgical dressing. Plan: -referral to wound care placed -Frequent repositioning -Vitamin C zinc sulfate #Hx PE on Eliquis -will hold home eliquis due to GI bleed -PCC complex given for reversal Health Maintenance Disposition: Patient is admitted for further workup and management of acute encephalopathy, acute blood loss anemia, ARF and UTI. Nephrology is following and treating infection and awaiting EGD. Mentation and kidney functions improved. DVT Prophylaxis: SCDs GI Prophylaxis: Pantoprozol-40 IV BID Diet: NPO Lines: Peripheral lines Code status: Full Assessment and plan discussed with my attending physician Dr. Kings Bolaños ([id number]-1)- Internal medicine resident Attending Provider Attestation/Addendum I have examined the patient, reviewed labs and imaging findings, discussed the case with the resident(s), and reviewed entered orders. I agree with the plan of care as outlined in this note, with these additional summaries/recommendations: Patient's hemoglobin remained stable today, mental status appears to be improving. GI has seen patient and she is pending EGD and colonoscopy to investigate source of bleed today. Blood cultures also returned positive for GPC 2 out of 2 bottles, vancomycin added and antibiotics adjusted. Repeat blood cultures today and continue to monitor closely. Walt Ku MD
--- NOTE | 2024-08-24 11:53 | PD.NEPHPROG ---
Documentation for date of: 08/24/24 Subjective Subjective Interval history: Ms. Dyer is a 88-year-old female with past medical history of hypertension, hyperlipidemia, pulmonary embolism on Eliquis, dementia, insomnia presented to the hospital with chief complaints of nausea, vomiting, diarrhea since 1 day. At baseline patient was bedbound and have severe dementia, taken care by her [id number]. Patient was apparently at her baseline 1 day ago. Yesterday, daughter noted patient is having episodes of epistaxis and resolved after applying pressure to it. This morning patient was found to have blood pressure of 100/40 for which her blood pressure medications were not given and later patient found to have 2 episodes of vomiting with blood in it. [id number] also stated that she noticed brownish discoloration of stools this morning. Later found to have bloody stools. Denies fever, shortness of breath, chest pain, palpitations ED Course: -Initial vitals were blood pressure 155/63 mmHg, pulse rate 67/min, respiratory rate 22/min, temperature 92.1 ?F, SpO2 100% with 2 L oxygen -Labs significant for WBC 14.6, Hb 3.7, platelets 127, sodium 130, potassium 6.3, bicarb 18.1, BUN 90, creatinine 2.7, glucose 461, lactate 5.1, AST 58, ALT 52, procalcitonin 0.56 -Urine analysis showed turbid urine with 77 WBC -Chest x ray did not show any patchy infiltrates -In the ED, patient was given hyperkalemic treatment Nephrology was consulted in view of acute kidney injury 08/23/2024 Patient was seen and examined bedside Her sensorium improved from yesterday and is able to answer questions appropriately No acute overnight events. Denies any other complaints Patient received 4 PRBC transfusions yesterday and hemodialysis session On physical examination, patient appears to be fluid overloaded with bilateral pedal edema 4+ extending into the thigh 1 dose of furosemide 40 Mg IV is given 08/24/2024 patient currently seen in telemetry. Resting comfortably. Going for colonoscopy. Endoscopy did not show any acute bleed. Labs/medications reviewed. Hemoglobin 10.5, platelets 68. Sodium 145, potassium 3.3, creatinine improved to 1.5. LFTs elevated. Review of Systems Review of Systems Narrative Review of Systems: CONSTITUTIONAL: Patient denies any fever, chills. Complaining of fatigue HEENT: Denies any visual disturbances or hearing problems. CARDIOVASCULAR: Patient denies any chest pain, shortness of breath, swelling in the lower extremities. PULMONARY: Patient denies any shortness of breath, cough. GASTROINTESTINAL: Patient denies any abdominal pain, constipation, nausea, vomiting, diarrhea. GENITOURINARY: Patient denies any urinary symptoms of burning or frequency or hematuria, denies any form in the urine. SKIN: Denies any rash. MUSCULOSKELETAL: Gait imbalance NEUROLOGICAL: Denies any neurological problems of strokes, seizures or confusion. Denies any memory problems. PSYCHIATRIC: Denies any depression or anxiety. LYMPHATICS : No lymphadenopathy Exam Vital Signs Temp Pulse Resp BP Pulse Ox O2 Del Method O2 Flow Rate 36.3 C 83 16 110/82 98 Room Air 1 08/24/24 08:00 08/24/24 08:08 08/24/24 08:00 08/24/24 08:08 08/24/24 08:00 08/24/24 08:00 08/24/24 00:00 Narrative Exam GENERAL APPEARANCE: Patient very fragile HEENT: EOMI, PERRLA NECK: Neck supple, no JVD or bruit CARDIOVASCULAR: Heart regular, no murmurs LUNGS/CHEST: Chest clear to auscultation. No rales, rhonchi, wheezing ABDOMEN: Soft, nontender, nondistended. No masses. Normal bowel sounds. EXTREMITIES: ++ Lower extremity edema SKIN: Skin exam normal without any rashes MUSCULOSKELETAL:in bed NEUROLOGICAL : Alert and awake Objective Labs 08/25/24 05:52 08/24/24 04:45 Labs: Laboratory Results - last 24 hr 08/22/24 08/24/24 11:13 04:45 WBC 9.4 RBC 3.48 L Hgb 10.5 L Hct 31.8 L MCV 91 MCH 30.2 MCHC 33.0 RDW Std Deviation 54.1 H Plt Count 68 L Neut % (Auto) 80 Lymph % (Auto) 7 L [place] % (Auto) 12 Eos % (Auto) 1 Baso % (Auto) 0 Neut # (Auto) 7.5 Lymph # (Auto) 0.6 L [place] # (Auto) 1.1 H Eos # (Auto) 0.1 Baso # (Auto) 0.0 Immature Gran # (Auto) 0.13 H Absolute Nucleated RBC 0.18 H Immature Gran % 1 H Nucleated RBC % 2 H Sodium 145 Potassium 3.3 L D Chloride 104 Carbon Dioxide 28.1 Anion Gap 13 BUN 37 H Creatinine 1.5 H Estim Creat Clear Calc 18.0 L eGFR 34 L BUN/Creatinine Ratio 25 H Glucose 111 H Calculated Osmolality 298 H Calcium 8.6 Corrected Calcium 9.5 Phosphorus 2.8 Magnesium 2.6 Total Bilirubin 2.2 H AST 68 H ALT 52 H Alkaline Phosphatase 193 H D Total Protein 5.4 L Albumin 2.9 L Globulin 2.5 Albumin/Globulin Ratio 1.2 Misc Test Result Platelets confirmed Blood Type A Positive Antibody Screen NEGATIVE Crossmatch See Detail Blood Bank Wristband ID Yes Blood Bank Comment PLATP Ready ABG Interpretation ABG results: 08/22/24 14:52 ABG pH 7.33 L ABG pCO2 37 ABG pO2 142 H ABG HCO3 20 ABG O2 Saturation 101 H ABG Base Excess -6 L Assessment & Plan Additional Assessment & Plan Additional Plan: 88-year-old female with past medical history of hypertension, hyperlipidemia, pulmonary embolism on Eliquis, dementia, insomnia presented to the hospital with chief complaints of nausea, vomiting, diarrhea since 1 day. # Acute kidney injury on Ckd stage IIIb, resolving Likely prerenal FIDEL vs ATN in the setting of anemia, GI bleed -Brought to the hospital with complaints of nausea, vomiting, diarrhea and bloody stools. -Baseline creatinine on 06/2024 is 1.2 -On the day of admission, 08/22/2024 creatinine 2.7, BUN 90 > 3/15, BUN 42, Cr 1.6 -Patient also noted to have improving urine output Plan -In view of hyperkalemia, decreased urine output and FIDEL, recommended to do hemodialysis on 08/23/2023 -As patient's renal functions are getting better, will hold off on dialysis for today -Recommended Lasix 40 Mg IV in view of for blood transfusions and patient appears to be fluid overloaded -Continue to monitor urine output and renal functions -Avoid nephrotoxic medication and renally dose medications # Hyperkalemia, resolved -Potassium at the time of admission is 6, repeat potassium is 6.3 -Received hyperkalemic treatment and hemodialysis on 08/22/2024 -Potassium is nl- recommended to monitor electrolytes #Non AnionGap Metabolic acidosis, resolved #Lactic acidosis, resolved -Bicarb at the time of admission is 18.1, Lactic acid is 5.4 on 08/22/2024 -On 08/24/2024, Bicarb and potassium is WNL -Monitor electrolytes #Acute encephalopathy, multifactorial #Acute severe blood loss anemia, likely lower GI--GI workup in progress #Hypotension #Lactic acidosis, type A #UTI #Hyperglycemia #Elevated transaminases #Elevated T. bili #Hypertension #HLD #Generalized weakness #Osteoarthritis #Wheelchair-bound #Failure to thrive #PEG tube placed in december 2023 #Dementia #Insomnia #Generalized anxiety disorder #Sacral decubitus ulcer #Decubitus ulcer left hip #Hx PE on Eliquis -Rest of the medical conditions to be treated as per primary team
--- NOTE | 2024-08-24 15:02 | PC.NURSE ---
Family at bedside requesting the telesitter be blocked by the curtain so staff is not observing their visit and can have privacy. They were educated on the safety reasons why the avasure is in place and agree to assume responsibility of the risks posed to the patient by not having the avasure in view of the patient. DIAZ Oakley aware of the situation. Family agrees to inform staff when they leave the room and have been instructed to leave the curtain open.
[2024-08-24] MEDS: amLODIPine BESYLATE 2.5 MG TABLET PO (16:19)
--- NOTE | 2024-08-24 16:40 | PC.NURSE ---
pt to colonoscopy
[2024-08-24] MEDS: APIXABAN 2.5 MG TABLET 5 MG PO (20:46)
[2024-08-24] MEDS: BusPIRone HCL 5 MG TABLET 10 MG GT (20:46)
[2024-08-24] MEDS: GABAPENTIN 100 MG CAPSULE GT (20:46)
[2024-08-24] MEDS: DONEPEZIL HCL 5 MG TABLET 10 MG PO (20:46)
[2024-08-24] MEDS: INSULIN GLARGINE (Lantus) 5 UNIT/0.05 ML (PER 5 UNITS) 10 UNIT SC (20:57)
[2024-08-25] VITALS (11 sets, daily range): BP systolic 128–186; BP diastolic 56–88; PULSE 69–98; RESP 16–97; TEMP 36.3–36.7; O2SAT 96–99
[2024-08-25 06:23] LABS: Basophils % (Auto) 0 % (0-2.5); Eosinophils # (Auto) 0.1 Thou/mm3 (0.0-0.5); Eosinophils % (Auto) 1 % (0-10); Hematocrit 35.7 % (36.0-46.0); Hemoglobin 11.2 g/dL (12.0-16.0); Immature Granulocytes % (Auto) 2 % (0-0); Immature Granulocytes Auto 0.16 Thou/mm3 (0.00-0.00); Lymphocytes # (Auto) 0.7 Thou/mm3 (1.0-4.8); Lymphocytes % (Auto) 7 % (10-50); Mean Corpuscular HGB Conc 31.4 g/dl (31.0-37.0); Mean Corpuscular Hemoglobin 29.8 pg (25.0-35.0); Mean Corpuscular Volume 95 fL (80-100); Monocytes # (Auto) 1.1 Thou/mm3 (0.0-0.8); Monocytes % (Auto) 11 % (0-12); Neutrophils # (Auto) 8.2 Thou/mm3 (1.8-7.7); Neutrophils % (Auto) 80 % (37-80); Nucleated Red Blood Cell # 0.07 Thou/mm3 (0.00-0.00); Nucleated Red Blood Cell % 1 /100 WBC (0); RDW Standard Deviation 59.5 fL (36.4-46.3); Red Blood Count 3.76 Miln/mm3 (4.00-5.20); White Blood Count 10.3 Thou/mm3 (3.6-11.0)
[2024-08-25 06:25] LABS: Platelet Count 43 Thou/mm3 (140-440)
[2024-08-25 06:49] LABS: Alanine Aminotransferase 59 U/L (10-49); Albumin, Serum 3.1 gm/dL (3.4-4.8); Albumin/Globulin Ratio 1.1 (1.2-2.2); Alkaline Phosphatase 218 U/L (46-116); Anion Gap 14 (7-16); Aspartate Amino Transferase 80 U/L (0-34); BUN/Creatinine Ratio 21 Ratio (12-20); Blood Urea Nitrogen 30 mg/dL (9-23); Calcium 9.1 mg/dL (8.3-10.6); Calcium (Corrected) 9.8 mg/dL (8.5-10.1); Carbon Dioxide 26.1 mMol/L (20.0-31.0); Chloride 110 mMol/L (98-107); Creatinine (Component) 1.4 mg/dL (0.6-1.3); Estimated Creatinine Clearance 19.3 mL/min (>60); Globulin 2.7 gm/dL (2.3-3.5); Glucose 88 mg/dL (74-106); Magnesium 2.5 mg/dL (1.6-2.6); Osmolality,Calculated 303 (275-295); Potassium 3.5 mMol/L (3.4-5.1); Sodium 150 mMol/L (136-145); Total Protein 5.8 gm/dL (5.7-8.2); Vancomycin,Random 12.5 mcg/mL; eGFR 36 See Note
[2024-08-25 08:09] LABS: Misc Send Out* See Sep Rpt
[2024-08-25 08:21] LABS: Slide Review Platelets confirmed
[2024-08-25] MEDS: PANTOPRAZOLE INJ 40 MG VIAL IVP ×2 (08:41→21:17)
[2024-08-25] MEDS: cefTRIAXone/D5w 2gm 2 GM/50 ML BAG IV (08:42)
[2024-08-25] MEDS: ASCORBIC ACID 250 MG TABLET 500 MG PO ×2 (08:42→21:17)
[2024-08-25] MEDS: ZINC SULFATE 220 MG CAPSULE PO (08:42)
[2024-08-25] MEDS: amLODIPine BESYLATE 2.5 MG TABLET PO (08:42)
[2024-08-25] MEDS: METOPROLOL TARTRATE 25 MG TABLET 12.5 MG PO (08:43)
--- NOTE | 2024-08-25 10:21 | ESPR_ITS ---
Documentation for date of: 08/25/24 Subjective Subjective Interval history: Ms. Dyer is a 88-year-old female with past medical history of hypertension, hyperlipidemia, pulmonary embolism on Eliquis, dementia, insomnia presented to the hospital with chief complaints of nausea, vomiting, diarrhea since 1 day. At baseline patient was bedbound and have severe dementia, taken care by her [id number]. Patient was apparently at her baseline 1 day ago. Yesterday, daughter noted patient is having episodes of epistaxis and resolved after applying pressure to it. This morning patient was found to have blood pressure of 100/40 for which her blood pressure medications were not given and later patient found to have 2 episodes of vomiting with blood in it. [id number] also stated that she noticed brownish discoloration of stools this morning. Later found to have bloody stools. Denies fever, shortness of breath, chest pain, palpitations ED Course: -Initial vitals were blood pressure 155/63 mmHg, pulse rate 67/min, respiratory rate 22/min, temperature 92.1 ?F, SpO2 100% with 2 L oxygen -Labs significant for WBC 14.6, Hb 3.7, platelets 127, sodium 130, potassium 6.3, bicarb 18.1, BUN 90, creatinine 2.7, glucose 461, lactate 5.1, AST 58, ALT 52, procalcitonin 0.56 -Urine analysis showed turbid urine with 77 WBC -Chest x ray did not show any patchy infiltrates -In the ED, patient was given hyperkalemic treatment Nephrology was consulted in view of acute kidney injury 08/23/2024 Patient was seen and examined bedside Her sensorium improved from yesterday and is able to answer questions appropriately No acute overnight events. Denies any other complaints Patient received 4 PRBC transfusions yesterday and hemodialysis session On physical examination, patient appears to be fluid overloaded with bilateral pedal edema 4+ extending into the thigh 1 dose of furosemide 40 Mg IV is given 08/24/2024 patient currently seen in telemetry. Resting comfortably. Going for colonoscopy. Endoscopy did not show any acute bleed. Labs/medications reviewed. Hemoglobin 10.5, platelets 68. Sodium 145, potassium 3.3, creatinine improved to 1.5. LFTs elevated. 08/25/2024 Patient was seen and examined at bedside in telemetry Patient appears to be slightly confused. Colonoscopy done yesterday showed hemorrhoids Vitals are stable. Patient seems to have adequate urinary output Dialysis catheter can be taken off as patient is able to make adequate urine output and renal functions are improving Labs showed sodium 150, chloride 110, BUN 30, creatinine 1.4 Free water deficit for correction of sodium to 145 is 0.7 L, recommended to replace it through D5 or through oral intake if patient is not at risk of aspiration Exam Vital Signs Temp Pulse Resp BP Pulse Ox O2 Del Method O2 Flow Rate 97.5 F 81 17 171/74 H 97 Room Air 3 08/25/24 08:00 08/25/24 09:25 08/25/24 09:25 08/25/24 08:43 08/25/24 08:00 08/25/24 08:00 08/24/24 17:48 Narrative Exam General: Awake. confused, restrained in mittens HEENT: Normocephalic, atraumatic, mucous membranes moist. Heart: Regular rate and rhythm, no murmurs. Lungs: Clear to auscultation with no wheezing or crackles. Abdomen: Soft, nondistended, nontender, positive bowel sounds. ?No guarding or rebound tenderness. Neurologic: Confused, no gross neurological deficit, and patient able to move all 4 extremities. Extremities: No edema. Skin: No rash or ecchymoses. Objective Labs 08/26/24 04:47 08/26/24 04:47 Labs: Laboratory Results - last 24 hr 08/22/24 08/25/24 21:08 05:52 WBC 10.3 RBC 3.76 L Hgb 11.2 L Hct 35.7 L MCV 95 MCH 29.8 MCHC 31.4 RDW Std Deviation 59.5 H Plt Count 43 L D Neut % (Auto) 80 Lymph % (Auto) 7 L Knox % (Auto) 11 Eos % (Auto) 1 Baso % (Auto) 0 Neut # (Auto) 8.2 H Lymph # (Auto) 0.7 L Knox # (Auto) 1.1 H Eos # (Auto) 0.1 Baso # (Auto) 0.0 Immature Gran # (Auto) 0.16 H Absolute Nucleated RBC 0.07 H Immature Gran % 2 H Nucleated RBC % 1 H Sodium 136 150 H Potassium 4.0 D 3.5 Chloride 100 110 H Carbon Dioxide 24.6 26.1 Anion Gap 11 14 BUN 39 H 30 H Creatinine 1.6 H D 1.4 H Estim Creat Clear Calc 21.5 L 19.3 L eGFR 31 L 36 L BUN/Creatinine Ratio 24 H 21 H Glucose 213 H D 88 Calculated Osmolality 287 303 H Calcium 8.1 L 9.1 Corrected Calcium 9.0 9.8 Phosphorus 2.8 3.0 Magnesium 2.6 2.5 Total Bilirubin 2.3 H D 3.0 H D AST 59 H 80 H ALT 48 59 H Alkaline Phosphatase 132 H 218 H D Total Protein 5.4 L 5.8 Albumin 2.9 L 3.1 L Globulin 2.5 2.7 Albumin/Globulin Ratio 1.2 1.1 L Random Vancomycin 12.5 Misc Test Result Platelets confirmed ABG Interpretation ABG results: 08/22/24 14:52 ABG pH 7.33 L ABG pCO2 37 ABG pO2 142 H ABG HCO3 20 ABG O2 Saturation 101 H ABG Base Excess -6 L Quality Measures Quality Measures VTE prophylaxis (sCDs) Advance care planning discussed with:: other Assessment & Plan Assessment Current Active Medications: Generic Name Dose Route Start Last Admin Trade Name Freq PRN Reason Stop Dose Admin Acetaminophen 650 mg 08/23/24 14:13 Acetaminophen Leni 325 Mg/10 Ml Udc GT 09/21/24 15:54 Q6HR PRN Fever >100.4 or pain (1-3) Amlodipine Besylate 2.5 mg 08/24/24 16:00 08/25/24 08:42 Amlodipine Besylate 2.5 Mg Tablet PO 09/23/24 15:59 2.5 mg QDAY MANUEL Administration Apixaban 5 mg 08/24/24 21:00 08/24/24 20:46 Apixaban 2.5 Mg Tablet PO 09/14/24 20:59 5 mg BID MANUEL Administration Ascorbic Acid 500 mg 08/23/24 21:00 08/25/24 08:42 Ascorbic Acid 250 Mg Tablet PO 09/22/24 20:59 500 mg BID MANUEL Administration Buspirone HCl 10 mg 08/24/24 21:00 08/24/24 20:46 Buspirone Hcl 5 Mg Tablet GT 09/23/24 20:59 10 mg HS MANUEL Administration Dextrose 50 ml 08/22/24 12:23 Dextrose 50%-Water Inj 50 Ml Syringe IV 09/21/24 12:22 Q15MIN PRN BG <50 OR BG <70 & pt unresponsive Dextrose 25 ml 08/22/24 12:26 Dextrose 50%-Water Inj 50 Ml Syringe IV 09/21/24 12:25 Q15MIN PRN BG 50-70 responsive npo pt Donepezil HCl 10 mg 08/23/24 21:00 08/24/24 20:46 Donepezil Hcl 5 Mg Tablet PO 09/22/24 20:59 10 mg HS MANUEL Administration Gabapentin 100 mg 08/24/24 21:00 08/24/24 20:46 Gabapentin 100 Mg Capsule GT 09/23/24 20:59 100 mg HS MANUEL Administration Glucagon 1 mg 08/22/24 12:26 Glucagon Inj 1 Mg Vial IM Q15MIN PRN BG <70, and no IV access Heparin Sodium (Porcine) 2,600 unit 08/22/24 18:43 08/22/24 19:47 Heparin Sod Inj 1000 Unit/Ml Vial 10 Ml INDWELLCAT 09/05/24 18:42 2,600 unit PRN PRN Administration DIALYSIS Albumin Human 25 gm in 100 mls @ 100 mls/min 08/22/24 14:55 Albuminar-25 Ivpb IV PRN PRN DIALYSIS Ceftriaxone Sodium/Dextrose 2 gm in 50 mls @ 100 mls/hr 08/25/24 09:00 Rocephin/D5w 2gm IV 09/01/24 08:59 QDAY MANUEL Vancomycin/Sodium Chloride 100 mls @ 120 mls/hr 08/25/24 10:00 Vancomycin/Ns 500 Mg Ivpb IV 08/25/24 10:49 X1 ONE Insulin Glargine 10 unit 08/22/24 21:00 08/24/24 20:57 Insulin Glargine (Lantus) 5 Unit/0.05 Ml (Per 5 Units) SC 09/21/24 20:59 10 unit HS MANUEL Administration Insulin Human Lispro 0 unit 08/22/24 16:28 08/25/24 05:12 Insulin Lispro (Admelog) 1 Unit/0.01 Ml Unit SC 09/21/24 16:27 Not Given Q6HR [facility] Protocol Metoprolol Tartrate 12.5 mg 08/24/24 03:05 08/25/24 08:43 Metoprolol Tartrate 25 Mg Tablet PO 09/23/24 03:04 12.5 mg BID [facility] Administration Home Medication- 0.5 mg 08/22/24 21:00 08/24/24 20:51 Please Speak With NG 09/21/24 20:59 Not Given Patient Caregiver To [facility] Have Rx Brought To [facility] Pantoprazole Sodium 40 mg 08/22/24 21:00 08/25/24 08:41 Pantoprazole Inj 40 Mg Vial IVP 09/21/24 20:59 40 mg Q12HR [facility] Administration Pharmacy Consult 1 each 08/24/24 09:00 Vancomycin Pharmacy To Dose 1 Each Each IV 09/23/24 08:59 QDAY PRN CONSULT Scopolamine 1 mg 08/23/24 08:18 Scopolamine 1 Mg Tdsy TOP 09/22/24 08:29 Q3D PRN vomiting Tramadol HCl 50 mg 08/23/24 14:12 Tramadol Hcl 50 Mg Tablet PO 08/28/24 14:11 Q6HR PRN PAIN SCALE 4-10(Mod-Sev Zinc Sulfate 220 mg 08/24/24 09:00 08/25/24 08:42 Zinc Sulfate 220 Mg Capsule PO 09/23/24 08:59 220 mg QDAY [facility] Administration Plan 88-year-old female with past medical history of hypertension, hyperlipidemia, pulmonary embolism on Eliquis, dementia, insomnia presented to the hospital with chief complaints of nausea, vomiting, diarrhea since 1 day. # Acute kidney injury on Ckd stage IIIb, resolving Likely prerenal FIDEL vs ATN in the setting of anemia, GI bleed -Brought to the hospital with complaints of nausea, vomiting, diarrhea and bloody stools. -Baseline creatinine on 06/2024 is 1.2 -On the day of admission, 08/22/2024 creatinine 2.7, BUN 90 > 08/23, BUN 42, Cr 1.6 >08/25, BUN 30, Cr 1.4 -Patient also noted to have improving urine output Plan -In view of hyperkalemia, decreased urine output and FIDEL, recommended to do hemodialysis on 08/23/2023 -As patient's renal functions are getting better, will hold off on dialysis -Recommended to remove the Dialysis catheter as the renal functions are stable and patient is making adequate amount of urine -Continue to monitor urine output and renal functions -Avoid nephrotoxic medication and renally dose medications # Hyperchloremic hypernatremia -On 08/25/2024, sodium is 150, chloride is 110 -Free water deficit based on correction to 145 is 0.7 L -Recommended to replace the free water deficit -Recommended to monitor electrolytes # Hyperkalemia, resolved -Potassium at the time of admission is 6, repeat potassium is 6.3 -Received hyperkalemic treatment and hemodialysis on 08/22/2024 -Potassium is wnl- recommended to monitor electrolytes #Non AnionGap Metabolic acidosis, resolved #Lactic acidosis, resolved -Bicarb at the time of admission is 18.1, Lactic acid is 5.4 on 08/22/2024 -On 08/24/2024, Bicarb and potassium is WNL -Monitor electrolytes #Acute encephalopathy, multifactorial #Acute severe blood loss anemia, likely lower GI--GI workup in progress #Hypotension #Lactic acidosis, type A #UTI #Hyperglycemia #Elevated transaminases #Elevated T. bili #Hypertension #HLD #Generalized weakness #Osteoarthritis #Wheelchair-bound #Failure to thrive #PEG tube placed in december 2023 #Dementia #Insomnia #Generalized anxiety disorder #Sacral decubitus ulcer #Decubitus ulcer left hip #Hx PE on Eliquis -Rest of the medical conditions to be treated as per primary team Attending Provider Attestation/Addendum Patient seen and examined with resident physician Dr. Lassiter. Note reviewed, agree with findings and recommendations. Labs, medications reviewed. Patient more alert and awake after 1 dialysis session. Today patient seems to be sleepy and had a restraints. Urine output and creatinine markedly improved. Will DC dialysis catheter. Plan of care discussed with hospitalist team.
[2024-08-25] MEDS: VANCOMYCIN/NS 500 MG IVPB 100 ML 120 MG IV (10:55)
[2024-08-25] MEDS: hydroCHLOROthiazide 12.5 MG CAPSULE PO (15:30)
--- NOTE | 2024-08-25 15:30 | ESPR_ITS ---
<Statement entered by Jamel Nichols MD - 08/25/24 17:33> Patient was seen and examined by me personally. I agree with most of the assessment and plan as discussed with the internship coordinator physician, and my attending, Dr. Benavides. Patient s/p colonoscopy, found to have hemorrhoids, polyp (removed and sent for path), diverticulosis without bleed. She had ~2.9 L urine output in the past 24 hours, therefore we will remove temporary dialysis catheter. Repeat blood cultures are still pending. Will de-escalate antibiotics accordingly. Echo pending. Na 150, will give gentle flushes and monitor. Plt 43, noted. Jamel Nichols MD, PGY-3 Documentation for date of: 08/25/24 Subjective Subjective Interval history: No acute overnight events reported. Patient seen and examined at bedside this morning patient is saturating on room air and has mittens as patient continues to be mildly agitated and starts to pull out her lines. Vitals are stable patient remained afebrile overnight. Leukocytosis have down trended to 10.3 and hemoglobin is stable at 11.2 patient has mild elevation of sodium to 150 but likely due to no fluids and stop the water flushes due to GoLytely prep. , patient underwent colonoscopy yesterday which showed hemorrhoids and a polyp in the rectum but no signs of active bleeding. Resumed PEG tube feeds with 25 mL/h water flushes. Blood cultures grew GPC speciation is pending and urine culture grew Klebsiella and as well as MRSA positive patient is currently on ceftriaxone and vancomycin. Per nephrology recommendation as well as positive blood cultures, removed the temporary dialysis catheter and ordered an echo. Exam Vital Signs Temp Pulse Resp BP Pulse Ox O2 Del Method O2 Flow Rate 97.5 F 81 17 171/74 H 97 Room Air 3 08/25/24 08:00 08/25/24 09:25 08/25/24 09:25 08/25/24 08:43 08/25/24 08:00 08/25/24 08:00 08/24/24 17:48 Narrative Exam GENERAL: elderly female, awake and confused NEURO: no neurologic deficit noted HEENT: Atraumatic, Normocephalic. mucous membranes moist. Pt is legally blind, eyes are closed HEART: Regular rate and regular rhythm. No murmurs/rubs/gallops, S1-S2 LUNGS: Clear to auscultation with no wheezing or crackles. ABDOMEN: soft, non-distended, non-tender, bowel sounds heard, no guarding or rebound tenderness, PEG tube in place SKIN: No Rash or ecchymoses, decubitus sacral ulcer EXTREMITIES: no tenderness, able to move all 4 extremities, pedal pulses palpated, multiple bruising from fall. 1+ bilateral pitting edema left lower extremity Objective Labs 08/25/24 05:52 08/25/24 15:28 Labs: Laboratory Results - last 24 hr 08/22/24 08/25/24 21:08 05:52 WBC 10.3 RBC 3.76 L Hgb 11.2 L Hct 35.7 L MCV 95 MCH 29.8 MCHC 31.4 RDW Std Deviation 59.5 H Plt Count 43 L D Neut % (Auto) 80 Lymph % (Auto) 7 L [place] % (Auto) 11 Eos % (Auto) 1 Baso % (Auto) 0 Neut # (Auto) 8.2 H Lymph # (Auto) 0.7 L [place] # (Auto) 1.1 H Eos # (Auto) 0.1 Baso # (Auto) 0.0 Immature Gran # (Auto) 0.16 H Absolute Nucleated RBC 0.07 H Immature Gran % 2 H Nucleated RBC % 1 H Sodium 136 150 H Potassium 4.0 D 3.5 Chloride 100 110 H Carbon Dioxide 24.6 26.1 Anion Gap 11 14 BUN 39 H 30 H Creatinine 1.6 H D 1.4 H Estim Creat Clear Calc 21.5 L 19.3 L eGFR 31 L 36 L BUN/Creatinine Ratio 24 H 21 H Glucose 213 H D 88 Calculated Osmolality 287 303 H Calcium 8.1 L 9.1 Corrected Calcium 9.0 9.8 Phosphorus 2.8 3.0 Magnesium 2.6 2.5 Total Bilirubin 2.3 H D 3.0 H D AST 59 H 80 H ALT 48 59 H Alkaline Phosphatase 132 H 218 H D Total Protein 5.4 L 5.8 Albumin 2.9 L 3.1 L Globulin 2.5 2.7 Albumin/Globulin Ratio 1.2 1.1 L Random Vancomycin 12.5 Misc Test Result Platelets confirmed ABG Interpretation ABG results: 08/22/24 14:52 ABG pH 7.33 L ABG pCO2 37 ABG pO2 142 H ABG HCO3 20 ABG O2 Saturation 101 H ABG Base Excess -6 L Quality Measures Quality Measures VTE prophylaxis (sCDs) Advance care planning discussed with:: other Assessment & Plan Assessment Current Active Medications: Generic Name Dose Route Start Last Admin Trade Name Freq PRN Reason Stop Dose Admin Acetaminophen 650 mg 08/23/24 14:13 Acetaminophen Leni 325 Mg/10 Ml Udc GT 09/21/24 15:54 Q6HR PRN Fever >100.4 or pain (1-3) Amlodipine Besylate 2.5 mg 08/24/24 16:00 08/25/24 08:42 Amlodipine Besylate 2.5 Mg Tablet PO 09/23/24 15:59 2.5 mg QDAY MANUEL Administration Apixaban 5 mg 08/24/24 21:00 08/25/24 08:42 Apixaban 2.5 Mg Tablet PO 09/14/24 20:59 Not Given BID MANUEL Ascorbic Acid 500 mg 08/23/24 21:00 08/25/24 08:42 Ascorbic Acid 250 Mg Tablet PO 09/22/24 20:59 500 mg BID MANUEL Administration Buspirone HCl 10 mg 08/24/24 21:00 08/24/24 20:46 Buspirone Hcl 5 Mg Tablet GT 09/23/24 20:59 10 mg HS MANUEL Administration Dextrose 50 ml 08/22/24 12:23 Dextrose 50%-Water Inj 50 Ml Syringe IV 09/21/24 12:22 Q15MIN PRN BG <50 OR BG <70 & pt unresponsive Dextrose 25 ml 08/22/24 12:26 Dextrose 50%-Water Inj 50 Ml Syringe IV 09/21/24 12:25 Q15MIN PRN BG 50-70 responsive npo pt Donepezil HCl 10 mg 08/23/24 21:00 08/24/24 20:46 Donepezil Hcl 5 Mg Tablet PO 09/22/24 20:59 10 mg HS MANUEL Administration Gabapentin 100 mg 08/24/24 21:00 08/24/24 20:46 Gabapentin 100 Mg Capsule GT 09/23/24 20:59 100 mg HS MANUEL Administration Glucagon 1 mg 08/22/24 12:26 Glucagon Inj 1 Mg Vial IM Q15MIN PRN BG <70, and no IV access Heparin Sodium (Porcine) 2,600 unit 08/22/24 18:43 08/22/24 19:47 Heparin Sod Inj 1000 Unit/Ml Vial 10 Ml INDWELLCAT 09/05/24 18:42 2,600 unit PRN PRN Administration DIALYSIS Hydrochlorothiazide 12.5 mg 08/25/24 14:45 Hydrochlorothiazide 12.5 Mg Capsule PO 09/24/24 14:44 DAILY@1200 MANUEL Albumin Human 25 gm in 100 mls @ 100 mls/min 08/22/24 14:55 Albuminar-25 Ivpb IV PRN PRN DIALYSIS Ceftriaxone Sodium/Dextrose 2 gm in 50 mls @ 100 mls/hr 08/25/24 09:00 08/25/24 08:42 Rocephin/D5w 2gm IV 09/01/24 08:59 100 mls/hr QDAY [facility] Administration Insulin Glargine 10 unit 08/22/24 21:00 08/24/24 20:57 Insulin Glargine (Lantus) 5 Unit/0.05 Ml (Per 5 Units) SC 09/21/24 20:59 10 unit [facility] Administration Insulin Human Lispro 0 unit 08/22/24 16:28 08/25/24 12:00 Insulin Lispro (Admelog) 1 Unit/0.01 Ml Unit SC 09/21/24 16:27 Not Given Q6HR [facility] Protocol Metoprolol Tartrate 25 mg 08/26/24 09:00 Metoprolol Tartrate 25 Mg Tablet PO 09/25/24 08:59 QDAY [facility] Home Medication- 0.5 mg 08/22/24 21:00 08/24/24 20:51 Please Speak With NG 09/21/24 20:59 Not Given Patient Caregiver To [facility] Have Rx Brought To [facility] Pantoprazole Sodium 40 mg 08/22/24 21:00 08/25/24 08:41 Pantoprazole Inj 40 Mg Vial IVP 09/21/24 20:59 40 mg Q12HR [facility] Administration Pharmacy Consult 1 each 08/24/24 09:00 Vancomycin Pharmacy To Dose 1 Each Each IV 09/23/24 08:59 QDAY PRN CONSULT Scopolamine 1 mg 08/23/24 08:18 Scopolamine 1 Mg Tdsy TOP 09/22/24 08:29 Q3D PRN vomiting Tramadol HCl 50 mg 08/23/24 14:12 Tramadol Hcl 50 Mg Tablet PO 08/28/24 14:11 Q6HR PRN PAIN SCALE 4-10(Mod-Sev Zinc Sulfate 220 mg 08/24/24 09:00 08/25/24 08:42 Zinc Sulfate 220 Mg Capsule PO 09/23/24 08:59 220 mg QDAY MANUEL Administration Plan Ms. Blanca is a 88 year old female with past medical history significant for hypertension, hyperlipidemia, history of pulmonary embolism on Eliquis 5 mg, dementia, insomnia and generalized weakness (wheelchair-bound) presented to the ED due to altered mental status, nausea vomiting with blood clot and diarrhea with multiple episodes of hematochezia. #Acute encephalopathy, multifactorial, improved -DDx: Acute renal failure with azotemia, acute blood loss anemia, polypharmacy, hyperglycemia, UTI, hypotension -On admission, pt was not at her baseline mentation where she is responsive and converses with family members, although this morning pt was able to express symptoms of abdominal pain but progressively became altered and became more somnolent -Head CT was negative for acute bleed -Patient is more awake and alert this morning -Hemoglobin and blood sugar stable -Treating underlying infection -Holding home medications -Holding off dialysis today per nephro recs #Acute severe blood loss anemia, likely lower GI, resolved #Hypotension DDx: Hemorrhoids, diverticular bleed, Eliquis use, peptic ulcer disease -Pt has several episodes of hemotaozia for a few days and episodes of blood tinge diarrhea -on admission Hgb 3.7 and Hct -lactic acid down trended, due to volume loss in the setting of blood loss - 4 units of pRBCs and PCC were given -Protonix every 12 hourly -post transfusion H&H was 11.1 -PRBC if hemoglobin drops below 7 -Iron panel, B12 and folate were within normal range -SCDs for DVT prophylaxis -PEG tube replaced on 08/23 -Colonoscopy done showed hemorroids and polyp in the rectum -GI consulted, appreciate recommendations #Thrombocytopenia #?HIT -Platelets on admission 127, Pt received heparin for temporary dialysis catheter and repeat platelet same day are 65 -> today [id number] -4T score for HIT 1, low probability of HIT (<5%) -will stop all heparin products and continue to monitor daily labs and signs of HIT #FIDEL with azotemia likely prerenal, improving -Underlying history of CKD stage IIIb?4 DDx: Prerenal causes: Blood loss, hypotension, diuretics, renal causes: ATN -On admission, BUN 90, creatinine 2.7 and GFR 17, likely prerenal in the setting of bloodloss/volume loss -2L bolus LR given and blood transfusion ordered -Holding of dialysis per nephrology recommendations -Dose of Lasix 40 mg given x 1 per nephro recs as patient had bilateral lower extremity swelling/edema -Strict NICOLÁS's -Avoid nephrotoxic agents, renally dose medications -Nephrology consulted, appreciate recommendations -Improved post temporary dialysis, pt is making urine #GPC Bacteremia -Blood cultures 2/2 grew GPC and awaiting speciation -possible sources include: decubitus ulcers -temp dialysis cath removed on 08/25 -echo pending -Pt is currently on ceftriaxone 2gm and vancomycin #Klebsiella UTI -Urinalysis was showing pyuria with positive leukocyte esterase. -Per patient's [id number] patient was having symptoms of discomfort during urination. Procalcitonin was 0.56 -Blood cultures grew GPC -Urine cultures grew klebsiella -MRSA nares + -Vancomycin started 08/24- -Started IV ceftriaxone once daily 08/23- #Lactic acidosis, type A, resolved ? Likely related to blood loss -Lactic acid was 5.4--> 5.1 due to volume loss in the setting of blood loss -Lactic acid down trended #NAGMA, resolved -Likely due to ARF ?Patient presented with acidosis bicarb of 18. ABGs showed pH 7.33 -Improved post temporary dialysis -Holding diuretics and transfusing blood #?CHF -Chest x-ray was suggestive for positive fluid balance with probable trace fluid in the right fissure. CHF pattern. Worsening pulmonary edema with increased interstitial markings. -BNP was mildly elevated -Echo from 2022 showed EF 65-70% with stage I diastolic dysfunction -Dose of Lasix given 40 mg x 1 -Ordered echocardiogram to evaluate heart functions -Performing temporary dialysis -Gentle IV fluids were given -Strict NICOLÁS's -Aspiration precautions -Nasopharyngeal suctioning -Chest PT #Electrolyte disturbances #Pseudo hyponatremia, resolved #Hyperkalemia, resolved -Related to ARF, blood loss, hyperglycemia -on admission pt's potassium was 6.5. EKG showed sinus bradycardia with RBBB. Corrected sodium for glucose 136 -pt is given breathing treatment, 10 units of insulin, calcium gluconate and sodium Bicarb - Vas-Cath placed by ICU lozenge maker helper on 08/22 and removed on 08/25 -Electrolytes improved post-dialysis -will repeat labs and closely monitor -nephrology is following #Hyperglycemia,Resolved -Pt does not have history of DM and her blood sugar on admission are 461 -Lispro 6 units given, and insulin sliding scale ordered -A1c is not in good indicated marker in the setting of acute blood loss -Blood sugars significantly improved #Hypothermia, resolved -Pt temperature on admission is 92.1 liekly due to hypoperfusion in the setting of volume loss -Bear hugger was used -Monitoring temperature closely #Elevated transaminases #Elevated T. bili -Total bilirubin: Was 1.1 increased to 2.3 -AST and ALT mildly elevated -Liver ultrasound from 2022 showed CBD 0.4 cm. 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 -Likely due to blood loss, medications, liver -Avoid hepatotoxic agents -Treating ARF -Hep panel came negative #Hypertension #HLD #Generalized weakness #Osteoarthritis #Wheelchair-bound -will hold antihypertensive medications due to hypotension in the setting of volume loss -Holding on pain medications as mentation has slightly improved this morning #Failure to thrive #PEG tube placed in december 2023 -Pt has history of decreased oral intake and PEG tube was placed for tube feeds -Recently patient's formula feed for PEG tube was replace per patient's [id number], was previously on fiber plus -Dietitian consult is placed, and will resume tube feeds once EGD is completed #Dementia #Insomnia #Generalized anxiety disorder -Pt has history of dementia due to that pt often becomes combative -Will restart donepezil and tramadol, holding mirtazapine, trazodone and buspirone -Mentation has improved today -Restraints due to patient's pulling out lines -Resume Rexulti given concern for combative behavior #Sacral decubitus ulcer #Decubitus ulcer left hip -Patient has sacral decubitus ulcer covered in surgical dressing. Plan: -referral to wound care placed -Frequent repositioning -Vitamin C zinc sulfate #Hx PE on Eliquis -will hold home eliquis due to GI bleed -PCC complex given for reversal Health Maintenance Disposition: Patient is admitted for further workup and management of acute encephalopathy, acute blood loss anemia, ARF and UTI. Nephrology is following and treating infection, mentation and kidney functions improved. DVT Prophylaxis: SCDs GI Prophylaxis: Pantoprozol-40 IV BID Diet: NPO Lines: Peripheral lines Code status: Full Assessment and plan discussed with my senior resident Dr. Nichols & attending physician Dr. Kennedy Bolaños (PGY-1)- Internal medicine resident Attending Provider Attestation/Addendum I have discussed and was present for the essential components of the history, physical examination, diagnosis, and treatment plan with the resident. I agree with the patient's care as documented by the resident and amended herein by me. Mark Benavides DO. Although this document has been carefully reviewed, there may still be some phonetic and other typographical errors. These errors are purely grammatical due to imperfections in the software program and should not be construed in any way to compromise the substance of the patient's medical care during this visit.
[2024-08-25] MEDS: METOPROLOL TARTRATE 25 MG TABLET 12.5 MG GT (15:31)
[2024-08-25 15:59] LABS: Sodium 151 mMol/L (136-145)
[2024-08-25] MEDS: DONEPEZIL HCL 5 MG TABLET 10 MG PO (21:16)
[2024-08-25] MEDS: GABAPENTIN 100 MG CAPSULE GT (21:17)
[2024-08-25] MEDS: BusPIRone HCL 5 MG TABLET 10 MG GT (21:17)
[2024-08-25] MEDS: INSULIN GLARGINE (Lantus) 5 UNIT/0.05 ML (PER 5 UNITS) 10 UNIT SC (21:19)
--- NOTE | 2024-08-25 22:24 | ESPR_ITS ---
Documentation for date of: 08/25/24 Subjective Subjective Interval history: Hemoglobin hematocrit 11.2 and 35.7 BUN/creatinine 30 and 1.4 Exam Vital Signs Temp Pulse Resp BP Pulse Ox O2 Del Method O2 Flow Rate 98.0 F 91 18 175/72 H 96 Room Air 3 08/25/24 20:00 08/25/24 20:00 08/25/24 20:00 08/25/24 20:00 08/25/24 20:00 08/25/24 20:00 08/25/24 16:00 Objective Labs 08/25/24 05:52 08/25/24 15:28 Labs: Laboratory Results - last 24 hr 08/22/24 08/25/24 08/25/24 21:08 05:52 15:28 WBC 10.3 RBC 3.76 L Hgb 11.2 L Hct 35.7 L MCV 95 MCH 29.8 MCHC 31.4 RDW Std Deviation 59.5 H Plt Count 43 L D Neut % (Auto) 80 Lymph % (Auto) 7 L [place] % (Auto) 11 Eos % (Auto) 1 Baso % (Auto) 0 Neut # (Auto) 8.2 H Lymph # (Auto) 0.7 L [place] # (Auto) 1.1 H Eos # (Auto) 0.1 Baso # (Auto) 0.0 Immature Gran # (Auto) 0.16 H Absolute Nucleated RBC 0.07 H Immature Gran % 2 H Nucleated RBC % 1 H Sodium 136 150 H 151 H Potassium 4.0 D 3.5 Chloride 100 110 H Carbon Dioxide 24.6 26.1 Anion Gap 11 14 BUN 39 H 30 H Creatinine 1.6 H D 1.4 H Estim Creat Clear Calc 21.5 L 19.3 L eGFR 31 L 36 L BUN/Creatinine Ratio 24 H 21 H Glucose 213 H D 88 Calculated Osmolality 287 303 H Calcium 8.1 L 9.1 Corrected Calcium 9.0 9.8 Phosphorus 2.8 3.0 Magnesium 2.6 2.5 Total Bilirubin 2.3 H D 3.0 H D AST 59 H 80 H ALT 48 59 H Alkaline Phosphatase 132 H 218 H D Total Protein 5.4 L 5.8 Albumin 2.9 L 3.1 L Globulin 2.5 2.7 Albumin/Globulin Ratio 1.2 1.1 L Random Vancomycin 12.5 Misc Test Result Platelets confirmed Impressions Impression: Gastritis Status post placement of a new PEG tube Diverticulosis: Continue current management ABG Interpretation ABG results: 08/22/24 14:52 ABG pH 7.33 L ABG pCO2 37 ABG pO2 142 H ABG HCO3 20 ABG O2 Saturation 101 H ABG Base Excess -6 L Assessment & Plan A&P Narrative Acute posthemorrhagic anemia Hematemesis Hematochezia Plan Fiberoptic esophagogastroduodenoscopy with possible therapeutic intervention possible biopsy under intravenous moderate sedation Other medical problems include Pulmonary embolism on Eliquis Coronary artery disease stable angina Hyperlipidemia Hypertension Dementia Thank you for the opportunity to participate in the care of this patient Time Spent With Patient Time: Total time spent is greater than 50% in coordination of care (as documented) at patient's floor/unit and/or counseling patient:
[2024-08-26] VITALS (14 sets, daily range): BP systolic 124–162; BP diastolic 58–96; PULSE 68–142; RESP 14–100; TEMP 36.1–36.9; O2SAT 97–100; BMI 26.9
[2024-08-26] MEDS: INSULIN LISPRO (AdmeLOG) 1 UNIT/0.01 ML UNIT SC (05:21)
[2024-08-26 05:32] LABS: Basophils % (Auto) 0 % (0-2.5); Eosinophils % (Auto) 0 % (0-10); Hematocrit 33.7 % (36.0-46.0); Hemoglobin 10.7 g/dL (12.0-16.0); Immature Granulocytes % (Auto) 3 % (0-0); Immature Granulocytes Auto 0.28 Thou/mm3 (0.00-0.00); Lymphocytes # (Auto) 0.9 Thou/mm3 (1.0-4.8); Lymphocytes % (Auto) 9 % (10-50); Mean Corpuscular HGB Conc 31.8 g/dl (31.0-37.0); Mean Corpuscular Hemoglobin 29.4 pg (25.0-35.0); Mean Corpuscular Volume 93 fL (80-100); Monocytes # (Auto) 1.3 Thou/mm3 (0.0-0.8); Monocytes % (Auto) 14 % (0-12); Neutrophils # (Auto) 6.8 Thou/mm3 (1.8-7.7); Neutrophils % (Auto) 73 % (37-80); Nucleated Red Blood Cell # 0.06 Thou/mm3 (0.00-0.00); Nucleated Red Blood Cell % 1 /100 WBC (0); RDW Standard Deviation 60.2 fL (36.4-46.3); Red Blood Count 3.64 Miln/mm3 (4.00-5.20); White Blood Count 9.4 Thou/mm3 (3.6-11.0)
[2024-08-26 05:36] LABS: Platelet Count 25 Thou/mm3 (140-440)
[2024-08-26 05:57] LABS: Alanine Aminotransferase 53 U/L (10-49); Albumin, Serum 2.8 gm/dL (3.4-4.8); Albumin/Globulin Ratio 1.1 (1.2-2.2); Alkaline Phosphatase 249 U/L (46-116); Anion Gap 10 (7-16); Aspartate Amino Transferase 56 U/L (0-34); BUN/Creatinine Ratio 28 Ratio (12-20); Bilirubin,Total 4.4 mg/dL (0.3-1.2); Blood Urea Nitrogen 37 mg/dL (9-23); Calcium 8.4 mg/dL (8.3-10.6); Calcium (Corrected) 9.4 mg/dL (8.5-10.1); Carbon Dioxide 27.6 mMol/L (20.0-31.0); Chloride 114 mMol/L (98-107); Creatinine (Component) 1.3 mg/dL (0.6-1.3); Estimated Creatinine Clearance 20.8 mL/min (>60); Globulin 2.6 gm/dL (2.3-3.5); Glucose 158 mg/dL (74-106); Magnesium 2.3 mg/dL (1.6-2.6); Osmolality,Calculated 313 (275-295); Phosphorous 3.3 mg/dL (2.4-5.1); Sodium 152 mMol/L (136-145); Total Protein 5.4 gm/dL (5.7-8.2); eGFR 40 See Note
[2024-08-26 06:23] LABS: Slide Review Platelets confirmed
[2024-08-26] MEDS: amLODIPine BESYLATE 2.5 MG TABLET PO (08:36)
[2024-08-26] MEDS: ASCORBIC ACID 250 MG TABLET 500 MG PO ×2 (08:36→21:43)
[2024-08-26] MEDS: PANTOPRAZOLE INJ 40 MG VIAL IVP ×2 (08:37→21:43)
[2024-08-26] MEDS: METOPROLOL TARTRATE 25 MG TABLET PO (08:37)
[2024-08-26] MEDS: POTASSIUM CHLORIDE 10% 20 MEQ/15 ML UDC 40 MEQ GT (08:50)
--- NOTE | 2024-08-26 09:31 | PD.RESPRO ---
Documentation for date of: 08/26/24 Subjective Subjective Interval history: Ms. Dyer is a 88-year-old female with past medical history of hypertension, hyperlipidemia, pulmonary embolism on Eliquis, dementia, insomnia presented to the hospital with chief complaints of nausea, vomiting, diarrhea since 1 day. At baseline patient was bedbound and have severe dementia, taken care by her [id number]. Patient was apparently at her baseline 1 day ago. Yesterday, daughter noted patient is having episodes of epistaxis and resolved after applying pressure to it. This morning patient was found to have blood pressure of 100/40 for which her blood pressure medications were not given and later patient found to have 2 episodes of vomiting with blood in it. [id number] also stated that she noticed brownish discoloration of stools this morning. Later found to have bloody stools. Denies fever, shortness of breath, chest pain, palpitations ED Course: -Initial vitals were blood pressure 155/63 mmHg, pulse rate 67/min, respiratory rate 22/min, temperature 92.1 ?F, SpO2 100% with 2 L oxygen -Labs significant for WBC 14.6, Hb 3.7, platelets 127, sodium 130, potassium 6.3, bicarb 18.1, BUN 90, creatinine 2.7, glucose 461, lactate 5.1, AST 58, ALT 52, procalcitonin 0.56 -Urine analysis showed turbid urine with 77 WBC -Chest x ray did not show any patchy infiltrates -In the ED, patient was given hyperkalemic treatment Nephrology was consulted in view of acute kidney injury 08/26/2024 Patient was seen and examined bedside Still patient appears mildly confused, could be multifactorial including hospital induced delirium and hypernatremia, baseline dementia Vitals are stable. Patient is able to make adequate amount of urine. Labs showed sodium 152, potassium 3 Recommended to give 60 mL free water flushes every hourly based on free water deficit through G-tube Recommended to discontinue Ha catheter if that is no other indication Exam Vital Signs Temp Pulse Resp BP Pulse Ox O2 Del Method O2 Flow Rate 98.1 F 88 18 151/58 H 99 Nasal Cannula 2 08/26/24 04:00 08/26/24 08:37 08/26/24 04:00 08/26/24 08:37 08/26/24 04:00 08/26/24 04:00 08/26/24 04:00 Narrative Exam General: still confused HEENT: Normocephalic, atraumatic, mucous membranes moist. Heart: Regular rate and rhythm, no murmurs. Lungs: Clear to auscultation with no wheezing or crackles. Abdomen: Soft, nondistended, nontender, positive bowel sounds. ?No guarding or rebound tenderness. Neurologic: Confused, no gross neurological deficit, and patient able to move all 4 extremities. Extremities: Edema 2+ Skin: No rash or ecchymoses. Objective Labs 08/27/24 04:37 08/27/24 04:37 Labs: Laboratory Results - last 24 hr 08/25/24 08/26/24 15:28 04:47 WBC 9.4 RBC 3.64 L Hgb 10.7 L Hct 33.7 L MCV 93 MCH 29.4 MCHC 31.8 RDW Std Deviation 60.2 H Plt Count 25 L* D Neut % (Auto) 73 Lymph % (Auto) 9 L [place] % (Auto) 14 H Eos % (Auto) 0 Baso % (Auto) 0 Neut # (Auto) 6.8 Lymph # (Auto) 0.9 L [place] # (Auto) 1.3 H Eos # (Auto) 0.0 Baso # (Auto) 0.0 Immature Gran # (Auto) 0.28 H Absolute Nucleated RBC 0.06 H Immature Gran % 3 H Nucleated RBC % 1 H Sodium 151 H 152 H Potassium 3.0 L D Chloride 114 H Carbon Dioxide 27.6 Anion Gap 10 BUN 37 H Creatinine 1.3 Estim Creat Clear Calc 20.8 L eGFR 40 L BUN/Creatinine Ratio 28 H Glucose 158 H D Calculated Osmolality 313 H Calcium 8.4 Corrected Calcium 9.4 Phosphorus 3.3 Magnesium 2.3 Total Bilirubin 4.4 H D AST 56 H ALT 53 H Alkaline Phosphatase 249 H D Total Protein 5.4 L Albumin 2.8 L Globulin 2.6 Albumin/Globulin Ratio 1.1 L Random Vancomycin 11.0 Misc Test Result Platelets confirmed ABG Interpretation ABG results: 08/22/24 14:52 ABG pH 7.33 L ABG pCO2 37 ABG pO2 142 H ABG HCO3 20 ABG O2 Saturation 101 H ABG Base Excess -6 L Quality Measures Quality Measures VTE prophylaxis (sCDs) Advance care planning discussed with:: other Assessment & Plan Assessment Current Active Medications: Generic Name Dose Route Start Last Admin Trade Name Neymar PRN Reason Stop Dose Admin Acetaminophen 650 mg 08/23/24 14:13 Acetaminophen Leni 325 Mg/10 Ml Udc GT 09/21/24 15:54 Q6HR PRN Fever >100.4 or pain (1-3) Amlodipine Besylate 2.5 mg 08/24/24 16:00 08/26/24 08:36 Amlodipine Besylate 2.5 Mg Tablet PO 09/23/24 15:59 2.5 mg QDAY MANUEL Administration Apixaban 5 mg 08/24/24 21:00 08/25/24 21:00 Apixaban 2.5 Mg Tablet PO 09/14/24 20:59 Not Given BID MANUEL Ascorbic Acid 500 mg 08/23/24 21:00 08/26/24 08:36 Ascorbic Acid 250 Mg Tablet PO 09/22/24 20:59 500 mg BID MANUEL Administration Buspirone HCl 10 mg 08/24/24 21:00 08/25/24 21:17 Buspirone Hcl 5 Mg Tablet GT 09/23/24 20:59 10 mg HS MANUEL Administration Dextrose 50 ml 08/22/24 12:23 Dextrose 50%-Water Inj 50 Ml Syringe IV 09/21/24 12:22 Q15MIN PRN BG <50 OR BG <70 & pt unresponsive Dextrose 25 ml 08/22/24 12:26 Dextrose 50%-Water Inj 50 Ml Syringe IV 09/21/24 12:25 Q15MIN PRN BG 50-70 responsive npo pt Donepezil HCl 10 mg 08/23/24 21:00 08/25/24 21:16 Donepezil Hcl 5 Mg Tablet PO 09/22/24 20:59 10 mg HS MANUEL Administration Gabapentin 100 mg 08/24/24 21:00 08/25/24 21:17 Gabapentin 100 Mg Capsule GT 09/23/24 20:59 100 mg HS MANUEL Administration Glucagon 1 mg 08/22/24 12:26 Glucagon Inj 1 Mg Vial IM Q15MIN PRN BG <70, and no IV access Hydrochlorothiazide 12.5 mg 08/25/24 14:45 08/25/24 15:30 Hydrochlorothiazide 12.5 Mg Capsule PO 09/24/24 14:44 12.5 mg DAILY@1200 MANUEL Administration Albumin Human 25 gm in 100 mls @ 100 mls/min 08/22/24 14:55 Albuminar-25 Ivpb IV PRN PRN DIALYSIS Insulin Glargine 10 unit 08/22/24 21:00 08/25/24 21:19 Insulin Glargine (Lantus) 5 Unit/0.05 Ml (Per 5 Units) SC 09/21/24 20:59 10 unit HS [facility] Administration Insulin Human Lispro 0 unit 08/22/24 16:28 08/26/24 05:21 Insulin Lispro (Admelog) 1 Unit/0.01 Ml Unit SC 09/21/24 16:27 3 unit Q6HR MANUEL Administration Protocol Metoprolol Tartrate 25 mg 08/26/24 09:00 08/26/24 08:37 Metoprolol Tartrate 25 Mg Tablet PO 09/25/24 08:59 25 mg QDAY MANUEL Administration Home Medication- 0.5 mg 08/22/24 21:00 08/25/24 21:19 Please Speak With NG 09/21/24 20:59 Not Given Patient Caregiver To [facility] Have Rx Brought To [facility] Pantoprazole Sodium 40 mg 08/22/24 21:00 08/26/24 08:37 Pantoprazole Inj 40 Mg Vial IVP 09/21/24 20:59 40 mg Q12HR [facility] Administration Pharmacy Consult 1 each 08/24/24 09:00 Vancomycin Pharmacy To Dose 1 Each Each IV 09/23/24 08:59 QDAY PRN CONSULT Scopolamine 1 mg 08/23/24 08:18 Scopolamine 1 Mg Tdsy TOP 09/22/24 08:29 Q3D PRN vomiting Tramadol HCl 50 mg 08/23/24 14:12 Tramadol Hcl 50 Mg Tablet PO 08/28/24 14:11 Q6HR PRN PAIN SCALE 4-10(Mod-Sev Plan 88-year-old female with past medical history of hypertension, hyperlipidemia, pulmonary embolism on Eliquis, dementia, insomnia presented to the hospital with chief complaints of nausea, vomiting, diarrhea since 1 day. # Acute kidney injury on Ckd stage IIIb, resolved Likely prerenal FIDEL vs ATN in the setting of anemia, GI bleed -Brought to the hospital with complaints of nausea, vomiting, diarrhea and bloody stools. -Baseline creatinine on 06/2024 is 1.2 -On the day of admission, 08/22/2024 creatinine 2.7, BUN 90 > 08/23, BUN 42, Cr 1.6 >08/25, BUN 30, Cr 1.4 >08/26, BUN 37, Cr 1.3 -Patient also noted to have improving urine output Plan -In view of hyperkalemia, decreased urine output and FIDEL, recommended to do hemodialysis on 08/23/2023 -As patient's renal functions are getting better, will hold off on dialysis -Recommended to remove the Dialysis catheter and ha catheter as the renal functions are stable and patient is making adequate amount of urine -Continue to monitor urine output and renal functions -Avoid nephrotoxic medication and renally dose medications # Hyperchloremic hypernatremia -On 08/26/2024, sodium is 152, chloride is 114 -Free water deficit based on correction to 142 is 1.5 and recommended to give 60ml water flushes every hourly through G tube -Recommended to replace the free water deficit -Recommended to monitor electrolytes #Hypokalemia -Potassium as of 08/26/2024 is 3 -Potassium replacement through G tube # Hyperkalemia, resolved -Potassium at the time of admission is 6, repeat potassium is 6.3 -Received hyperkalemic treatment and hemodialysis on 08/22/2024 -Potassium is wnl- recommended to monitor electrolytes #Non AnionGap Metabolic acidosis, resolved #Lactic acidosis, resolved -Bicarb at the time of admission is 18.1, Lactic acid is 5.4 on 08/22/2024 -On 08/24/2024, Bicarb and potassium is WNL -Monitor electrolytes #Acute encephalopathy, multifactorial #Acute severe blood loss anemia, likely lower GI #Hypotension #Lactic acidosis, type A #UTI #Hyperglycemia #Elevated transaminases #Elevated T. bili #Hypertension #HLD #Generalized weakness #Osteoarthritis #Wheelchair-bound #Failure to thrive #PEG tube placed in december 2023 #Dementia #Insomnia #Generalized anxiety disorder #Sacral decubitus ulcer #Decubitus ulcer left hip #Hx PE on Eliquis -Rest of the medical conditions to be treated as per primary team Thank you for allowing us to involve in the care of the patient Patient plan of care was discussed with the attending physician, Dr. Keven Peters, PGY1 Attending Provider Attestation/Addendum Patient seen and examined with resident physician Dr. Maikol. Note reviewed, agree with findings and recommendations. Labs, medications reviewed. Patient more alert and awake after 1 dialysis session. Today patient seems to be sleepy and had restraints. Urine output and creatinine markedly improved. Discontinue dialysis and dialysis catheter. Hyponatremia noted-will increase free water flushes through the G-tube. Overall her prognosis remains poor with decreased mentation and failure to thrive Plan of care discussed with hospitalist team.
--- NOTE | 2024-08-26 09:52 | XR_ITS ---
Examination: AP chest single view Technique one AP portable upright chest single view Exam date and time: August 26, 2024 0906 hours Comparison August 22, 2024 INDICATIONS: Shortness of breath worsening respiratory distress today. FINDINGS: Findings of mild heart failure. Mild prominence cardiac contour Prominent vascular congestion, early perihilar edema No lobar pneumonia Prominent osteopenia, old fracture left clavicle IMPRESSION: Mild heart failure
--- NOTE | 2024-08-26 10:53 | XR_ITS ---
Examination: Venous duplex lower extremity sonogram, bilateral. Date and time of exam: August 26, 2024 1315 hours INDICATIONS: Bilateral leg swelling beginning 6 months ago Technique: Multiple sonographic images of the deep venous system have been obtained. B-mode/2-D grayscale imaging of vascular structures and Doppler spectral analysis (waveforms) and color performed Both legs are examined. Findings: Deep venous systems do not demonstrate abnormal echogenicity. All visualized deep veins exhibit compressibility. All visualized deep veins exhibit augmentation. Impression: Negative for deep vein thrombosis
[2024-08-26 11:12] LABS: Sodium 152 mMol/L (136-145)
[2024-08-26 11:20] LABS: Ammonia 51 uMol/L (11-32)
[2024-08-26] MEDS: hydroCHLOROthiazide 12.5 MG CAPSULE PO (12:33)
[2024-08-26] MEDS: FUROSEMIDE INJ 10 MG/ML 4ML VIAL 40 MG IVP (13:49)
[2024-08-26 14:27] LABS: Sodium 152 mMol/L (136-145)
--- NOTE | 2024-08-26 18:03 | ESPR_ITS ---
Documentation for date of: 08/26/24 Subjective Subjective Interval history: Patient evaluated hemoglobin hematocrit 10.7 and 33.7 newly placed PEG tube is working well Exam Vital Signs Temp Pulse Resp BP Pulse Ox O2 Del Method O2 Flow Rate 98.0 F 85 19 152/94 H 99 Nasal Cannula 2 08/26/24 16:00 08/26/24 17:53 08/26/24 17:53 08/26/24 16:00 08/26/24 16:00 08/26/24 16:00 08/26/24 16:00 Objective Labs 08/26/24 04:47 08/26/24 13:56 Labs: Laboratory Results - last 24 hr 08/26/24 08/26/24 08/26/24 04:47 10:23 13:56 WBC 9.4 RBC 3.64 L Hgb 10.7 L Hct 33.7 L MCV 93 MCH 29.4 MCHC 31.8 RDW Std Deviation 60.2 H Plt Count 25 L* D Neut % (Auto) 73 Lymph % (Auto) 9 L [place] % (Auto) 14 H Eos % (Auto) 0 Baso % (Auto) 0 Neut # (Auto) 6.8 Lymph # (Auto) 0.9 L [place] # (Auto) 1.3 H Eos # (Auto) 0.0 Baso # (Auto) 0.0 Immature Gran # (Auto) 0.28 H Absolute Nucleated RBC 0.06 H Immature Gran % 3 H Nucleated RBC % 1 H Sodium 152 H 152 H 152 H Potassium 3.0 L D Chloride 114 H Carbon Dioxide 27.6 Anion Gap 10 BUN 37 H Creatinine 1.3 Estim Creat Clear Calc 20.8 L eGFR 40 L BUN/Creatinine Ratio 28 H Glucose 158 H D Calculated Osmolality 313 H Calcium 8.4 Corrected Calcium 9.4 Phosphorus 3.3 Magnesium 2.3 Total Bilirubin 4.4 H D AST 56 H ALT 53 H Alkaline Phosphatase 249 H D Ammonia 51 H Total Protein 5.4 L Albumin 2.8 L Globulin 2.6 Albumin/Globulin Ratio 1.1 L Random Vancomycin 11.0 Misc Test Result Platelets confirmed Impressions Impression: Posthemorrhagic anemia Gastritis Gastroesophageal reflux disease Diverticulosis of left colon Status postplacement of a new PEG tube working very well Continue current management ABG Interpretation ABG results: 08/22/24 14:52 ABG pH 7.33 L ABG pCO2 37 ABG pO2 142 H ABG HCO3 20 ABG O2 Saturation 101 H ABG Base Excess -6 L Assessment & Plan A&P Narrative Acute posthemorrhagic anemia Hematemesis Hematochezia Plan Fiberoptic esophagogastroduodenoscopy with possible therapeutic intervention possible biopsy under intravenous moderate sedation Other medical problems include Pulmonary embolism on Eliquis Coronary artery disease stable angina Hyperlipidemia Hypertension Dementia Thank you for the opportunity to participate in the care of this patient Time Spent With Patient Time: Total time spent is greater than 50% in coordination of care (as documented) at patient's floor/unit and/or counseling patient:
[2024-08-26 19:22] LABS: Sodium 151 mMol/L (136-145)
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
[2024-08-26] MEDS: DONEPEZIL HCL 5 MG TABLET 10 MG PO (21:42)
[2024-08-26] MEDS: GABAPENTIN 100 MG CAPSULE GT (21:43)
[2024-08-26] MEDS: BusPIRone HCL 5 MG TABLET 10 MG GT (21:43)
[2024-08-26] MEDS: INSULIN GLARGINE (Lantus) 5 UNIT/0.05 ML (PER 5 UNITS) 10 UNIT SC (21:43)
[2024-08-26 23:01] LABS: Sodium 155 mMol/L (136-145)
--- NOTE | 2024-08-26 23:37 | PC.NURSE ---
Dr. Sofia notified of patient HR going to 140s for 6 seconds but not sustaining and back in the 90s now. No new orders at this time.
[2024-08-27] VITALS (14 sets, daily range): BP systolic 137–189; BP diastolic 70–104; PULSE 81–135; RESP 13–98; TEMP 36.1–36.9; O2SAT 97–99; BMI 26.9
--- NOTE | 2024-08-27 00:25 | PC.NURSE ---
Dr. Sofia notified of patient elevated BP and being lethargic, weak and non-verbal, not her normal baseline. Dr came to bedside and new orders received.
--- NOTE | 2024-08-27 00:27 | PC.NURSE ---
Dr. Sofia notified of patient HR in 110s-140s. New order received for EKG stat. Dr. Chakraborty notified of EKG results of A.Fib with RVR and HR 133.
[2024-08-27] MEDS: cefuroxime axetiL 250 MG TABLET PO ×2 (00:30→08:38)
[2024-08-27] MEDS: METOPROLOL TARTRATE INJ 1 MG/ML AMP 5 ML 2.5 MG IVP (00:53)
[2024-08-27] MEDS: INSULIN LISPRO (AdmeLOG) 1 UNIT/0.01 ML UNIT SC (00:59)
[2024-08-27 06:06] LABS: Basophils # (Auto) 0.1 Thou/mm3 (0.0-0.2); Basophils % (Auto) 1 % (0-2.5); Eosinophils # (Auto) 0.1 Thou/mm3 (0.0-0.5); Eosinophils % (Auto) 1 % (0-10); Hematocrit 33.7 % (36.0-46.0); Hemoglobin 10.8 g/dL (12.0-16.0); Immature Granulocytes % (Auto) 7 % (0-0); Lymphocytes # (Auto) 1.1 Thou/mm3 (1.0-4.8); Lymphocytes % (Auto) 9 % (10-50); Mean Corpuscular Hemoglobin 30.3 pg (25.0-35.0); Mean Corpuscular Volume 95 fL (80-100); Monocytes # (Auto) 1.3 Thou/mm3 (0.0-0.8); Monocytes % (Auto) 11 % (0-12); Neutrophils # (Auto) 8.5 Thou/mm3 (1.8-7.7); Neutrophils % (Auto) 72 % (37-80); Nucleated Red Blood Cell # 0.15 Thou/mm3 (0.00-0.00); Nucleated Red Blood Cell % 1 /100 WBC (0); RDW Standard Deviation 62.5 fL (36.4-46.3); Red Blood Count 3.56 Miln/mm3 (4.00-5.20); White Blood Count 11.8 Thou/mm3 (3.6-11.0)
[2024-08-27 06:16] LABS: Platelet Count 28 Thou/mm3 (140-440)
[2024-08-27 06:24] LABS: Alanine Aminotransferase 52 U/L (10-49); Albumin/Globulin Ratio 1.2 (1.2-2.2); Alkaline Phosphatase 236 U/L (46-116); Anion Gap 12 (7-16); Aspartate Amino Transferase 57 U/L (0-34); BUN/Creatinine Ratio 32 Ratio (12-20); Blood Urea Nitrogen 41 mg/dL (9-23); Calcium 8.4 mg/dL (8.3-10.6); Calcium (Corrected) 9.2 mg/dL (8.5-10.1); Chloride 112 mMol/L (98-107); Creatinine (Component) 1.3 mg/dL (0.6-1.3); Estimated Creatinine Clearance 24.1 mL/min (>60); Globulin 2.6 gm/dL (2.3-3.5); Glucose 140 mg/dL (74-106); Magnesium 2.1 mg/dL (1.6-2.6); Osmolality,Calculated 311 (275-295); Potassium 3.4 mMol/L (3.4-5.1); Sodium 151 mMol/L (136-145); Total Protein 5.6 gm/dL (5.7-8.2); eGFR 40 See Note
[2024-08-27] MEDS: amLODIPine BESYLATE 2.5 MG TABLET 5 MG PO (08:38)
[2024-08-27] MEDS: METOPROLOL TARTRATE 25 MG TABLET PO (08:38)
[2024-08-27] MEDS: POTASSIUM CHLORIDE 10% 20 MEQ/15 ML UDC GT (08:39)
[2024-08-27] MEDS: ASCORBIC ACID 250 MG TABLET 500 MG PO ×2 (08:39→21:07)
[2024-08-27] MEDS: PANTOPRAZOLE INJ 40 MG VIAL IVP (08:39)
[2024-08-27 09:22] LABS: Sodium 150 mMol/L (136-145)
[2024-08-27 11:14] LABS: Slide Review Platelets confirmed
[2024-08-27] MEDS: hydroCHLOROthiazide 12.5 MG CAPSULE 25 MG PO (11:29)
[2024-08-27] MEDS: VANCOMYCIN/NS 750 MG IVPB 750 MG/150 ML BAG 120 MG IV (11:31)
--- NOTE | 2024-08-27 11:39 | ESPR_ITS ---
Subjective Subjective Interval history: s hominis and vre done at same time on admit likely contaminants. on po meds otherwise. Exam Vital Signs Temp Pulse Resp BP Pulse Ox O2 Del Method O2 Flow Rate 98.2 F 98 18 142/74 H 97 Room Air 2 08/27/24 08:00 08/27/24 11:29 08/27/24 09:22 08/27/24 11:29 08/27/24 08:00 08/27/24 08:00 08/26/24 16:00 Narrative Exam see dictation. Objective - Internal Medicine Labs 08/27/24 04:37 08/27/24 08:54 Labs: Laboratory Results - last 24 hr 08/26/24 08/26/24 08/26/24 13:56 18:45 22:03 WBC RBC Hgb Hct MCV MCH MCHC RDW Std Deviation Plt Count Neut % (Auto) Lymph % (Auto) [place] % (Auto) Eos % (Auto) Baso % (Auto) Neut # (Auto) Lymph # (Auto) [place] # (Auto) Eos # (Auto) Baso # (Auto) Immature Gran # (Auto) Absolute Nucleated RBC Immature Gran % Nucleated RBC % Sodium 152 H 151 H 155 H Potassium Chloride Carbon Dioxide Anion Gap BUN Creatinine Estim Creat Clear Calc eGFR BUN/Creatinine Ratio Glucose Calculated Osmolality Calcium Corrected Calcium Phosphorus Magnesium Total Bilirubin AST ALT Alkaline Phosphatase Total Protein Albumin Globulin Albumin/Globulin Ratio Misc Test Result 08/27/24 08/27/24 04:37 08:54 WBC 11.8 H RBC 3.56 L Hgb 10.8 L Hct 33.7 L MCV 95 MCH 30.3 MCHC 32.0 RDW Std Deviation 62.5 H Plt Count 28 L* Neut % (Auto) 72 Lymph % (Auto) 9 L [place] % (Auto) 11 Eos % (Auto) 1 Baso % (Auto) 1 Neut # (Auto) 8.5 H Lymph # (Auto) 1.1 [place] # (Auto) 1.3 H Eos # (Auto) 0.1 Baso # (Auto) 0.1 Immature Gran # (Auto) 0.80 H Absolute Nucleated RBC 0.15 H Immature Gran % 7 H Nucleated RBC % 1 H Sodium 151 H 150 H Potassium 3.4 Chloride 112 H Carbon Dioxide 27.0 Anion Gap 12 BUN 41 H Creatinine 1.3 Estim Creat Clear Calc 24.1 L eGFR 40 L BUN/Creatinine Ratio 32 H Glucose 140 H Calculated Osmolality 311 H Calcium 8.4 Corrected Calcium 9.2 Phosphorus 3.0 Magnesium 2.1 Total Bilirubin 4.0 H AST 57 H ALT 52 H Alkaline Phosphatase 236 H Total Protein 5.6 L Albumin 3.0 L Globulin 2.6 Albumin/Globulin Ratio 1.2 Misc Test Result Platelets confirmed ABG Interpretation ABG results: 08/22/24 14:52 ABG pH 7.33 L ABG pCO2 37 ABG pO2 142 H ABG HCO3 20 ABG O2 Saturation 101 H ABG Base Excess -6 L Assessment & Plan A&P Narrative anemia contaminants in dementia, non verbal htn ckd stopped vanco cefuroxime ok for urine, but keflex is cheaper so you may send her out on that for total of 7d overall. and adjust the dose for her ckd will see again prn ordered bnp for am. high na noted. may be relative dehydration. w/u for dementia per others. Time Spent With Patient Time: Total time spent is greater than 50% in coordination of care (as documented) at patient's floor/unit and/or counseling patient:
[2024-08-27 13:32] LABS: Sodium 149 mMol/L (136-145)
--- NOTE | 2024-08-27 14:25 | PD.RESCONSUL ---
HPI Data of Consult Requesting Physician: Jarrod Benavides DO Admitting Provider: Matheus Vera MD Attending Provider: Jarrod Benavides DO Primary Care Provider: Gilbert Hendricks MD Consult Narrative History of present illness: 88-year-old female with past medical history of hypertension, hyperlipidemia, pulmonary embolism on Eliquis, dementia, who was brought to the hospital due to vomiting and diarrhea. ID consulteddue to different organisms growing on blood cultures cc:: cc: Jarrod Benavides DO Exam Vital Signs Temp Pulse Resp BP Pulse Ox O2 Del Method O2 Flow Rate 98.1 F 81 13 152/81 H 97 Room Air 2 08/27/24 12:00 08/27/24 12:00 08/27/24 12:00 08/27/24 12:00 08/27/24 12:00 08/27/24 12:00 08/26/24 16:00 Results Labs 08/28/24 06:10 08/28/24 14:14 Labs: Short CBC 08/27/24 Range/Units 04:37 WBC 11.8 H (3.6-11.0) Thou/mm3 Hgb 10.8 L (12.0-16.0) g/dL Hct 33.7 L (36.0-46.0) % Plt Count 28 L* (140-440) Thou/mm3 BMP 08/26/24 08/26/24 08/26/24 13:56 18:45 22:03 Sodium 152 H 151 H 155 H Potassium Chloride Carbon Dioxide BUN Creatinine Glucose Calcium 08/27/24 08/27/24 08/27/24 04:37 08:54 12:53 Sodium 151 H 150 H 149 H Potassium 3.4 Chloride 112 H Carbon Dioxide 27.0 BUN 41 H Creatinine 1.3 Glucose 140 H Calcium 8.4 Liver Function 08/27/24 Range/Units 04:37 Total Bilirubin 4.0 H (0.3-1.2) mg/dL AST 57 H (0-34) U/L ALT 52 H (10-49) U/L Alkaline Phosphatase 236 H (46-116) U/L Albumin 3.0 L (3.4-4.8) gm/dL ABG Interpretation ABG results: 08/22/24 14:52 ABG pH 7.33 L ABG pCO2 37 ABG pO2 142 H ABG HCO3 20 ABG O2 Saturation 101 H ABG Base Excess -6 L Quality Measures Quality Measures VTE prophylaxis (sCDs) Advance care planning discussed with:: patient Medications Home Medications and Allergies Home Medications ?Medication ?Instructions ?Recorded ?Confirmed ?Type raloxifene 60 mg tablet (Evista) 60 mg feeding tube QAM #0 tabs 10/14/16 08/24/24 History simvastatin 40 mg tablet (Zocor) 40 mg feeding tube QPM #0 tabs 10/14/16 08/24/24 History tramadol 50 mg tablet 100 mg feeding tube Q12H 02/22/23 08/24/24 History donepezil 5 mg tablet 10 mg PO QDAY 05/08/23 08/24/24 History ferrous sulfate 325 mg (65 mg 325 mg feeding tube QDAY 05/08/23 08/24/24 History iron) tablet (FeroSul) misoprostol 200 mcg tablet 200 mcg feeding tube TID 05/08/23 08/24/24 History ascorbic acid (vitamin C) 500 mg 500 mg PO QDAY 12/23/23 08/24/24 History tablet (Vitamin C) fenofibrate 54 mg tablet 54 mg feeding tube .qpmac 12/23/23 08/24/24 History suvorexant 15 mg tablet (Belsomra) 20 mg PO QDAY 12/30/23 08/24/24 History apixaban 5 mg tablet (Eliquis) 5 mg PO Q12H 08/24/24 08/24/24 History brexpiprazole 2 mg tablet (Rexulti) 2 mg PO HS 08/24/24 08/24/24 History famotidine 20 mg tablet 20 mg PO QDAY 08/24/24 08/24/24 History furosemide 20 mg tablet 20 mg PO QDAY PRN fluid overload 08/24/24 08/24/24 History memantine 10 mg tablet 10 mg PO BID 08/24/24 08/24/24 History Allergies Allergy/AdvReac Type Severity Reaction Status Date / Time No Known Allergies Allergy Verified 12/22/23 16:50 Visit Medications Acetaminophen (Acetaminophen Leni 325 Mg/10 Ml Udc) 650 mg GT Q6HR PRN PRN Reason: Fever >100.4 or pain (1-3) Stop: 09/21/24 15:54 Amlodipine Besylate (Amlodipine Besylate 2.5 Mg Tablet) 5 mg PO QDAY [facility] Stop: 09/26/24 08:59 Last Admin: 08/27/24 08:38 Dose: 5 mg Apixaban (Apixaban 2.5 Mg Tablet) 5 mg PO BID [facility] Stop: 09/14/24 20:59 Last Admin: 08/25/24 21:00 Dose: Not Given Ascorbic Acid (Ascorbic Acid 250 Mg Tablet) 500 mg PO BID [facility] Stop: 09/22/24 20:59 Last Admin: 08/27/24 08:39 Dose: 500 mg Buspirone HCl (Buspirone Hcl 5 Mg Tablet) 10 mg GT [facility] Stop: 09/23/24 20:59 Last Admin: 08/26/24 21:43 Dose: 10 mg Cephalexin HCl (Cephalexin 250 Mg Capsule) 500 mg PO QDAY [facility] Stop: 09/04/24 08:59 Dextrose (Dextrose 50%-Water Inj 50 Ml Syringe) 50 ml IV Q15MIN PRN PRN Reason: BG <50 OR BG <70 & pt unresponsive Stop: 09/21/24 12:22 Dextrose (Dextrose 50%-Water Inj 50 Ml Syringe) 25 ml IV Q15MIN PRN PRN Reason: BG 50-70 responsive npo pt Stop: 09/21/24 12:25 Donepezil HCl (Donepezil Hcl 5 Mg Tablet) 10 mg PO [facility] Stop: 09/22/24 20:59 Last Admin: 08/26/24 21:42 Dose: 10 mg Famotidine (Famotidine 20 Mg Tablet) 20 mg PO QDAY [facility] Stop: 09/27/24 08:59 Glucagon (Glucagon Inj 1 Mg Vial) 1 mg IM Q15MIN PRN PRN Reason: BG <70, and no IV access Hydrochlorothiazide (Hydrochlorothiazide 12.5 Mg Capsule) 25 mg PO DAILY@1200 [facility] Stop: 09/26/24 11:59 Last Admin: 08/27/24 11:29 Dose: 25 mg Albumin Human (Albuminar-25 Ivpb) 25 gm in 100 mls @ 100 mls/min IV PRN PRN PRN Reason: DIALYSIS Insulin Glargine (Insulin Glargine (Lantus) 5 Unit/0.05 Ml (Per 5 Units)) 10 unit SC [facility] Stop: 09/21/24 20:59 Last Admin: 08/26/24 21:43 Dose: 10 unit Insulin Human Lispro (Insulin Lispro (Admelog) 1 Unit/0.01 Ml Unit) 0 unit SC Q6HR [facility]; Protocol Stop: 09/21/24 16:27 Last Admin: 08/27/24 12:06 Dose: Not Given Metoprolol Tartrate (Metoprolol Tartrate 25 Mg Tablet) 25 mg PO QDAY [facility] Stop: 09/25/24 08:59 Last Admin: 08/27/24 08:38 Dose: 25 mg Home Medication- Please Speak With Patient Caregiver To Have Rx Brought To [facility] 0.5 mg NG HS [facility] Stop: 09/21/24 20:59 Last Admin: 08/26/24 21:50 Dose: Not Given Scopolamine (Scopolamine 1 Mg Tdsy) 1 mg TOP Q3D PRN PRN Reason: vomiting Stop: 09/22/24 08:29 Discontinued Medications Acetaminophen (Acetaminophen Leni 325 Mg/10 Ml Udc) 650 mg GT Q6HR PRN PRN Reason: Fever >100.4 or pain Stop: 09/21/24 15:54 Albuterol/Ipratropium (Albuterol/Ipratropium (Duoneb) Rt Leni 3 Ml Nebu) 10 ml INH X1 ONE Stop: 08/22/24 12:27 Last Admin: 08/22/24 12:56 Dose: 10 ml Amlodipine Besylate (Amlodipine Besylate 2.5 Mg Tablet) 2.5 mg PO QDAY [facility] Stop: 09/23/24 15:59 Last Admin: 08/26/24 08:36 Dose: 2.5 mg Calcium Gluconate (Calcium Gluconate 10% Inj 1 Gm/10 Ml Vial) 1 gm IV X1 ONE Stop: 08/22/24 12:27 Last Admin: 08/22/24 13:56 Dose: 1 gm Cefuroxime Axetil (Cefuroxime Axetil 250 Mg Tablet) 250 mg PO BID [facility] Stop: 09/02/24 20:59 Cefuroxime Axetil (Cefuroxime Axetil 250 Mg Tablet) 250 mg PO BID [facility] Stop: 09/02/24 20:59 Cefuroxime Axetil (Cefuroxime Axetil 250 Mg Tablet) 250 mg PO BID [facility] Stop: 09/02/24 20:59 Cefuroxime Axetil (Cefuroxime Axetil 250 Mg Tablet) 250 mg PO X1 ONE Stop: 08/26/24 23:46 Last Admin: 08/27/24 00:30 Dose: 250 mg Cefuroxime Axetil (Cefuroxime Axetil 250 Mg Tablet) 250 mg PO BID [facility] Stop: 09/03/24 08:59 Last Admin: 08/27/24 08:38 Dose: 250 mg Cefuroxime Sodium (Cefuroxime Sodium 750 Mg Vial) 250 mg IV Q12H [facility] Stop: 09/02/24 20:29 Olanzapine 2.5 mg/ Sterile (Water 2.1 ml) 0 mg IM X1 ONE Stop: 08/24/24 03:11 Dextrose (Dextrose 50%-Water Inj 50 Ml Syringe) 25 ml IV Q15MIN PRN PRN Reason: BG 50-70 responsive npo pt Stop: 09/21/24 12:22 Dextrose (Dextrose 50%-Water Inj 50 Ml Syringe) 50 ml IV X1 ONE Stop: 08/22/24 12:27 Last Admin: 08/22/24 13:52 Dose: 50 ml Diphenhydramine HCl (Diphenhydramine Inj 50 Mg/Ml Vial) 25 mg IV PRNMRX1 PRN PRN Reason: MODERATE SEDATION Stop: 08/23/24 16:14 Diphenhydramine HCl (Diphenhydramine Inj 50 Mg/Ml Vial) 25 mg IV X1 ONE Stop: 08/24/24 03:13 Last Admin: 08/24/24 03:31 Dose: 25 mg Fentanyl Citrate (Fentanyl Cit Inj 50 Mcg/Ml Amp 2ml) 50 mcg IV Q2M PRN PRN Reason: MODERATE SEDATION Stop: 08/23/24 16:14 Furosemide (Furosemide Inj 10 Mg/Ml 4ml Vial) 40 mg IVP X1 ONE Stop: 08/23/24 13:13 Last Admin: 08/23/24 18:40 Dose: Not Given Furosemide (Furosemide Inj 10 Mg/Ml 4ml Vial) 40 mg IVP X1 ONE Stop: 08/23/24 18:35 Last Admin: 08/23/24 18:40 Dose: 40 mg Furosemide (Furosemide Inj 10 Mg/Ml 4ml Vial) 40 mg IVP X1 ONE Stop: 08/26/24 13:07 Last Admin: 08/26/24 13:49 Dose: 40 mg Gabapentin (Gabapentin 100 Mg Capsule) 100 mg GT HS [facility] Stop: 09/23/24 20:59 Last Admin: 08/26/24 21:43 Dose: 100 mg Glucagon (Glucagon Inj 1 Mg Vial) 1 mg IM Q15MIN PRN PRN Reason: BG <70, and no IV access Heparin Sodium (Porcine) (Heparin Sod Inj 1000 Unit/Ml Vial 10 Ml) 2,600 unit INDWELLCAT PRN PRN PRN Reason: DIALYSIS Stop: 09/05/24 18:42 Last Admin: 08/22/24 19:47 Dose: 2,600 unit Hydrochlorothiazide (Hydrochlorothiazide 12.5 Mg Capsule) 12.5 mg PO DAILY@1200 [facility] Stop: 09/24/24 14:44 Last Admin: 08/26/24 12:33 Dose: 12.5 mg Ceftriaxone Sodium 1,000 mg/ (Sodium Chloride) 50 mls @ 100 mls/hr IV X1 ONE Stop: 08/22/24 12:23 Last Infusion: 08/22/24 15:34 Dose: Infused Lactated Ringer's (Lactated Ringers) 1,000 mls @ 2,000 mls/hr IV .Q30M ONE Stop: 08/22/24 12:25 Last Infusion: 08/22/24 15:02 Dose: Infused Dextrose (D10w 1000 Ml) 1,000 mls @ 100 mls/hr IV .Q10H [facility] Stop: 08/22/24 22:29 Last Admin: 08/22/24 17:42 Dose: Not Given Ceftriaxone Sodium 1,000 mg/ (Sodium Chloride) 50 mls @ 100 mls/hr IV QDAY [facility] Stop: 08/30/24 08:59 Last Admin: 08/24/24 08:07 Dose: 100 mls/hr Lactated Ringer's (Lactated Ringers) 1,000 mls @ 999 mls/hr IV .Q1H1M ONE Stop: 08/22/24 15:09 Last Infusion: 08/22/24 18:45 Dose: Infused Prothrombin Complex Concent ( Human) 2,000 unit/ Sterile Water 80 ml/ IV Miscellaneous Supplies 80 mls @ 320 mls/hr IV X1 ONE Stop: 08/22/24 15:17 Last Infusion: 08/22/24 15:57 Dose: Infused Vancomycin/Sodium Chloride (Vancomycin/Ns 1 Gm Ivpb) 200 mls @ 120 mls/hr IV X1 ONE Stop: 08/24/24 10:39 Last Admin: 08/24/24 10:17 Dose: 120 mls/hr Ceftriaxone Sodium 1,000 mg/ (Sodium Chloride) 50 mls @ 100 mls/hr IV X1 ONE Stop: 08/24/24 14:26 Last Admin: 08/24/24 15:23 Dose: 100 mls/hr Ceftriaxone Sodium/Dextrose (Rocephin/D5w 2gm) 2 gm in 50 mls @ 100 mls/hr IV QDAY [facility] Stop: 09/01/24 08:59 Last Admin: 08/25/24 08:42 Dose: 100 mls/hr Vancomycin/Sodium Chloride (Vancomycin/Ns 500 Mg Ivpb) 100 mls @ 120 mls/hr IV X1 ONE Stop: 08/25/24 10:49 Last Admin: 08/25/24 10:55 Dose: 120 mls/hr Vancomycin/Sodium Chloride (Vancomycin/Ns 750 Mg Ivpb) 750 mg in 150 mls @ 120 mls/hr IV Q24H [facility] Stop: 09/02/24 09:59 Levofloxacin/Dextrose (Levaquin Ivpb) 750 mg in 150 mls @ 100 mls/hr IV QDAY [facility] Stop: 09/02/24 09:59 Dextrose (D5w) 500 mls @ 200 mls/hr IV .Q2H30M [facility] Stop: 08/27/24 07:44 Last Admin: 08/27/24 12:07 Dose: Not Given Vancomycin/Sodium Chloride (Vancomycin/Ns 750 Mg Ivpb) 750 mg in 150 mls @ 120 mls/hr IV Q24H [facility] Stop: 09/03/24 10:59 Last Admin: 08/27/24 11:31 Dose: 120 mls/hr Insulin Human Lispro (Insulin Lispro (Admelog) 1 Unit/0.01 Ml Unit) 0 unit SC Q6H [facility]; Protocol Stop: 09/21/24 12:29 Last Admin: 08/22/24 15:16 Dose: 4 unit Insulin Human Regular (Insulin Hum Regular 1 Unit/0.01 Ml (Per Unit)) 0 unit SC Q6H [facility]; Protocol Stop: 09/21/24 12:29 Insulin Human Regular (Insulin Hum Regular 1 Unit/0.01 Ml (Per Unit)) 5 unit IV X1 ONE Stop: 08/22/24 12:27 Last Admin: 08/22/24 13:27 Dose: Not Given Insulin Human Regular (Insulin Hum Regular 1 Unit/0.01 Ml (Per Unit)) 10 unit IV X1 ONE Stop: 08/22/24 13:26 Last Admin: 08/22/24 13:51 Dose: 10 unit Insulin Human Regular (Insulin Hum Regular 1 Unit/0.01 Ml (Per Unit)) 10 unit IV X1 ONE Stop: 08/22/24 17:40 Last Admin: 08/22/24 17:43 Dose: 10 unit Metoprolol Tartrate (Metoprolol Tartrate Inj 1 Mg/Ml Amp 5 Ml) 2.5 mg IVP X1 ONE Stop: 08/23/24 19:51 Last Admin: 08/23/24 20:05 Dose: 2.5 mg Metoprolol Tartrate (Metoprolol Tartrate 25 Mg Tablet) 12.5 mg PO BID [facility] Stop: 09/23/24 03:04 Last Admin: 08/25/24 08:43 Dose: 12.5 mg Metoprolol Tartrate (Metoprolol Tartrate 25 Mg Tablet) 12.5 mg GT X1 ONE Stop: 08/25/24 13:32 Last Admin: 08/25/24 15:31 Dose: 12.5 mg Metoprolol Tartrate (Metoprolol Tartrate 25 Mg Tablet) 25 mg PO QDAY [facility] Stop: 09/25/24 08:59 Last Admin: 08/26/24 08:37 Dose: 25 mg Metoprolol Tartrate (Metoprolol Tartrate Inj 1 Mg/Ml Amp 5 Ml) 2.5 mg IVP X1 ONE Stop: 08/27/24 00:35 Last Admin: 08/27/24 00:53 Dose: 2.5 mg Midazolam HCl (Midazolam Inj 1 Mg/Ml Vial 2 Ml) 2 mg IV Q2M PRN PRN Reason: Moderate Sedation Stop: 08/23/24 16:14 Midazolam HCl (Midazolam Inj 1 Mg/Ml Vial 2 Ml) 2 mg IV Q2M PRN PRN Reason: Moderate Sedation Stop: 08/24/24 19:56 Home Medication- Please Speak With Patient Caregiver To Have Rx Brought To [facility] 0.5 mg PO HS [facility] Stop: 09/21/24 20:59 Ondansetron HCl (Ondansetron Inj 2 Mg/Ml Inj 2 Ml) 4 mg IV Q6HR PRN; Protocol PRN Reason: NAUSEA OR VOMITING Stop: 09/21/24 15:54 Pantoprazole Sodium (Pantoprazole Inj 40 Mg Vial) 40 mg IVP X1 ONE Stop: 08/22/24 12:15 Last Admin: 08/22/24 14:07 Dose: 40 mg Pantoprazole Sodium (Pantoprazole Inj 40 Mg Vial) 40 mg IVP Q12HR [facility] Stop: 09/21/24 20:59 Last Admin: 08/27/24 08:39 Dose: 40 mg Pharmacy Consult (Vancomycin Pharmacy To Dose 1 Each Each) 1 each IV QDAY PRN PRN Reason: CONSULT Stop: 09/23/24 08:59 Pharmacy Consult (Vancomycin Pharmacy To Dose 1 Each Each) 1 each IV QDAY PRN PRN Reason: CONSULT Stop: 09/26/24 10:59 Polyethylene Glycol/Electrolytes ([place]/Nahco3/Ok/Peg (Golytely) 4,000 Ml Btl) 4,000 ml GT X1 ONE Stop: 08/23/24 14:53 Last Admin: 08/23/24 18:34 Dose: 4,000 ml Polyethylene Glycol/Electrolytes ([place]/Nahco3/Ok/Peg (Golytely) 4,000 Ml Btl) 4,000 ml GT X1 PRN PRN Reason: OTHER Stop: 08/26/24 14:51 Last Admin: 08/24/24 04:50 Dose: 1 bottle Potassium Chloride (Potassium Chloride 10% 20 Meq/15 Ml Udc) 40 meq GT X1 ONE Stop: 08/24/24 08:29 Last Admin: 08/24/24 10:17 Dose: 40 meq Potassium Chloride (Potassium Chloride 10% 20 Meq/15 Ml Udc) 40 meq GT X1 ONE Stop: 08/26/24 08:24 Last Admin: 08/26/24 08:50 Dose: 40 meq Potassium Chloride (Potassium Chloride 10% 20 Meq/15 Ml Udc) 20 meq GT X1 ONE Stop: 08/27/24 07:56 Last Admin: 08/27/24 08:39 Dose: 20 meq Sodium Bicarbonate (Sodium Bicarb Inj 8.4% 1 Meq/Ml 50 Ml Vial) 50 meq IV X1 ONE Stop: 08/22/24 12:27 Last Admin: 08/22/24 13:56 Dose: 50 meq Sodium Bicarbonate (Sodium Bicarb Inj 8.4% Syr 50 Ml Syringe) 50 ml IV X1 ONE Stop: 08/22/24 13:39 Last Admin: 08/22/24 13:58 Dose: Not Given Tramadol HCl (Tramadol Hcl 50 Mg Tablet) 50 mg PO Q6HR PRN PRN Reason: PAIN SCALE 4-10(Mod-Sev Stop: 08/28/24 14:11 Zinc Sulfate (Zinc Sulfate 220 Mg Capsule) 220 mg PO QDAY [facility] Stop: 09/23/24 08:59 Last Admin: 08/25/24 08:42 Dose: 220 mg Assessment & Plan Plan 88-year-old female with past medical history of hypertension, hyperlipidemia, pulmonary embolism on Eliquis, dementia, who was brought to the hospital due to vomiting and diarrhea. ID consulted due to different organisms growing on blood cultures #Staph hominis and Enterococcus growing on BC #UTI due to klebsiella -Initial blood cultures growing staph hominis and enterococcus -Probably contaminant -Followup repeat bloodcultures -Urine culture growith klebsiella -Cefuroxime discontinued, contiue cephalexin to complete a week course Patient's care discussed with attending physician, Dr Chan Olivas MD PGY3
--- NOTE | 2024-08-27 14:29 | ESCONSULT_ITS ---
RE: YANNICK DIXON : 1935 DATE OF CONSULTATION: 08/27/2024 REFERRING PHYSICIAN: Dr. Vera REASON FOR CONSULTATION: Anemia, bacteremia, dementia, nonverbal status, hypertension, and acute kidney injury based on her labs and other data. Past history is unchanged from prior notes. The patient is admitted with profound anemia. Hemoglobin was less than 4. She had blood cultures grew coag negative staph and one grew VRE. This is usually probably contaminant. She has not had cecily sepsis and has done very well without progressive therapy at the [facility] or the coag negative staph. She has some mild acute kidney injury, which seems to be being stabilized. Her sodium is a bit high as well. Her left heel is being evaluated. I do not see any x-rays of it and so there is wrapping around it. She is not verbal, so there is not much we can do for that. If there is osteomyelitis, we will have to do further imaging before we embark on a course of treatment. For now, she is on oral cefuroxime for presumptive pneumonia based on chest x-ray, but she also has heart failure and was profoundly anemic on arrival, so a BMP should be repeated before we embark on a course of antibiotics. Her urine grew Klebsiella and there was some mild pyuria noted, so a short course of antibiotics may be insufficient. She was admitted on the 08/22/2018, so probably has had treatment from the to the , which may be sufficient. I will check on her again Sunday if she remains, but if she goes home, I have no objection. Please limit her treatment to 7 days total for urine and note that oral Keflex may work with the Klebsiella as it appears to be resistant to ampicillin. She may have ASB as well. DT: 11:57:53 TT: 12:23:00 Ref: [id number] - TID: [id number] [facility]
--- NOTE | 2024-08-27 14:46 | ESPR_ITS ---
<Statement entered by Colby Kahn MD - 08/27/24 15:26> Patient was seen and examined at the bedside. Per night team, patient had atrial fibrillation episode again with heart rate in 130s. They administered metoprolol 2.5 mg x 1 which helped with a heart rate. Vitals were stable. Patient is mildly altered however responding to questions minimally. Sodium went up overnight therefore burn out tender lace recommended to increase water flushes to 80 cc/h and D5W was never given. Sodium has been improving the recent most 149. ID specialist recommended to continue Keflex for total 7 days to complete course for UTI. Gabapentin was discontinued and amlodipine was increased to control blood pressure. Platelets slightly improved. Anticipating discharge tomorrow if patient's mentation improved. Will update the family regarding patient's current condition. All labs and orders were reviewed. I saw and examined the patient, and I agree with current management stated by Dr Miky MD,PGY1. Plan of care was discussed with the attending physician and resident physician. Disclaimer: Despite multiple revisions, due to the dictation software being used, the document bellow may not be free of grammatical errors including phonetic/typographic errors. However, this does not deter from our commitment to providing health care in the patient's best interest in mind. Dr. Avtar MD, PGY 2 Documentation for date of: 08/27/24 Subjective Subjective Interval history: overnight team reported pt went into a-fib and 2.5IV metoprolol was given and pt went into sinus rhythm and has remained in sinus rhythm since. pt is seen and examined at bedside this morning and appears to be more solmnent then yesterday. Pt is not responding to most questions other than denies chest and abdominal pain. vitals show elevated BP of 164/94 with HR 105, pt's current dose of hydrocholothiazide dose is increased to 25mg. Due to pts mentation gabapentin is discontinued. hemaglobin is stable at 10.8 and thrombocytopenia is slowly improved to 28 today. Sodium is down trended with the increased water flushes through the G tube. pt does not appear to be in fluid overload state. Lungs are clear. pt is resting. Antibiotic is changed to keflex. will continue to monitor for improved mentation and labs. Exam Vital Signs Temp Pulse Resp BP Pulse Ox O2 Del Method O2 Flow Rate 98.1 F 81 13 152/81 H 97 Room Air 2 08/27/24 12:00 08/27/24 12:00 08/27/24 12:00 08/27/24 12:00 08/27/24 12:00 08/27/24 12:00 08/26/24 16:00 Narrative Exam GENERAL: elderly female, apears to more solmnent and minimally engaging in conversations NEURO: no neurologic deficit noted HEENT: Atraumatic, Normocephalic. mucous membranes moist. Pt is legally blind HEART: Regular rate and regular rhythm. No murmurs/rubs/gallops, S1-S2 LUNGS: lungs are clear to auscultation ABDOMEN: soft, non-distended, non-tender, bowel sounds heard, no guarding or rebound tenderness, PEG tube in place SKIN: No Rash or ecchymoses, decubitus sacral ulcer EXTREMITIES: no tenderness, able to move all 4 extremities, pedal pulses palpated, multiple bruising from fall. trace bilateral edema Objective Labs 08/28/24 06:10 08/28/24 14:14 Labs: Laboratory Results - last 24 hr 08/26/24 08/26/24 08/27/24 18:45 22:03 04:37 WBC 11.8 H RBC 3.56 L Hgb 10.8 L Hct 33.7 L MCV 95 MCH 30.3 MCHC 32.0 RDW Std Deviation 62.5 H Plt Count 28 L* Neut % (Auto) 72 Lymph % (Auto) 9 L [place] % (Auto) 11 Eos % (Auto) 1 Baso % (Auto) 1 Neut # (Auto) 8.5 H Lymph # (Auto) 1.1 [place] # (Auto) 1.3 H Eos # (Auto) 0.1 Baso # (Auto) 0.1 Immature Gran # (Auto) 0.80 H Absolute Nucleated RBC 0.15 H Immature Gran % 7 H Nucleated RBC % 1 H Sodium 151 H 155 H 151 H Potassium 3.4 Chloride 112 H Carbon Dioxide 27.0 Anion Gap 12 BUN 41 H Creatinine 1.3 Estim Creat Clear Calc 24.1 L eGFR 40 L BUN/Creatinine Ratio 32 H Glucose 140 H Calculated Osmolality 311 H Calcium 8.4 Corrected Calcium 9.2 Phosphorus 3.0 Magnesium 2.1 Total Bilirubin 4.0 H AST 57 H ALT 52 H Alkaline Phosphatase 236 H Total Protein 5.6 L Albumin 3.0 L Globulin 2.6 Albumin/Globulin Ratio 1.2 Misc Test Result Platelets confirmed 08/27/24 08/27/24 08:54 12:53 WBC RBC Hgb Hct MCV MCH MCHC RDW Std Deviation Plt Count Neut % (Auto) Lymph % (Auto) [place] % (Auto) Eos % (Auto) Baso % (Auto) Neut # (Auto) Lymph # (Auto) [place] # (Auto) Eos # (Auto) Baso # (Auto) Immature Gran # (Auto) Absolute Nucleated RBC Immature Gran % Nucleated RBC % Sodium 150 H 149 H Potassium Chloride Carbon Dioxide Anion Gap BUN Creatinine Estim Creat Clear Calc eGFR BUN/Creatinine Ratio Glucose Calculated Osmolality Calcium Corrected Calcium Phosphorus Magnesium Total Bilirubin AST ALT Alkaline Phosphatase Total Protein Albumin Globulin Albumin/Globulin Ratio Misc Test Result ABG Interpretation ABG results: 08/22/24 14:52 ABG pH 7.33 L ABG pCO2 37 ABG pO2 142 H ABG HCO3 20 ABG O2 Saturation 101 H ABG Base Excess -6 L Quality Measures Quality Measures VTE prophylaxis (sCDs) Advance care planning discussed with:: other Assessment & Plan Assessment Current Active Medications: Generic Name Dose Route Start Last Admin Trade Name Freq PRN Reason Stop Dose Admin Acetaminophen 650 mg 08/23/24 14:13 Acetaminophen Leni 325 Mg/10 Ml Udc GT 09/21/24 15:54 Q6HR PRN Fever >100.4 or pain (1-3) Amlodipine Besylate 5 mg 08/27/24 09:00 08/27/24 08:38 Amlodipine Besylate 2.5 Mg Tablet PO 09/26/24 08:59 5 mg QDAY MANUEL Administration Apixaban 5 mg 08/24/24 21:00 08/25/24 21:00 Apixaban 2.5 Mg Tablet PO 09/14/24 20:59 Not Given BID MANUEL Ascorbic Acid 500 mg 08/23/24 21:00 08/27/24 08:39 Ascorbic Acid 250 Mg Tablet PO 09/22/24 20:59 500 mg BID MANUEL Administration Buspirone HCl 10 mg 08/24/24 21:00 08/26/24 21:43 Buspirone Hcl 5 Mg Tablet GT 09/23/24 20:59 10 mg HS MANUEL Administration Cephalexin HCl 500 mg 08/28/24 09:00 Cephalexin 250 Mg Capsule PO 09/04/24 08:59 QDAY MANUEL Dextrose 50 ml 08/22/24 12:23 Dextrose 50%-Water Inj 50 Ml Syringe IV 09/21/24 12:22 Q15MIN PRN BG <50 OR BG <70 & pt unresponsive Dextrose 25 ml 08/22/24 12:26 Dextrose 50%-Water Inj 50 Ml Syringe IV 09/21/24 12:25 Q15MIN PRN BG 50-70 responsive npo pt Donepezil HCl 10 mg 08/23/24 21:00 08/26/24 21:42 Donepezil Hcl 5 Mg Tablet PO 09/22/24 20:59 10 mg HS [facility] [place] Administration Famotidine 20 mg 08/28/24 09:00 Famotidine 20 Mg Tablet PO 09/27/24 08:59 QDAY [facility] Glucagon 1 mg 08/22/24 12:26 Glucagon Inj 1 Mg Vial IM Q15MIN PRN BG <70, and no IV access Hydrochlorothiazide 25 mg 08/27/24 12:00 08/27/24 11:29 Hydrochlorothiazide 12.5 Mg Capsule PO 09/26/24 11:59 25 mg DAILY@1200 [facility] Administration Albumin Human 25 gm in 100 mls @ 100 mls/min 08/22/24 14:55 Albuminar-25 Ivpb IV PRN PRN DIALYS[facility] Insulin Glargine 10 unit 08/22/24 21:00 08/26/24 21:43 Insulin Glargine (Lantus) 5 Unit/0.05 Ml (Per 5 Units) SC 09/21/24 20:59 10 unit [facility] Administration Insulin Human Lispro 0 unit 08/22/24 16:28 08/27/24 12:06 Insulin Lispro (Admelog) 1 Unit/0.01 Ml Unit SC 09/21/24 16:27 Not Given Q6HR [facility] Protocol Metoprolol Tartrate 25 mg 08/27/24 00:37 08/27/24 08:38 Metoprolol Tartrate 25 Mg Tablet PO 09/25/24 08:59 25 mg QDAY [facility] Administration Home Medication- 0.5 mg 08/22/24 21:00 08/26/24 21:50 Please Speak With NG 09/21/24 20:59 Not Given Patient Caregiver To [facility] Have Rx Brought To [facility] Scopolamine 1 mg 08/23/24 08:18 Scopolamine 1 Mg Tdsy TOP 09/22/24 08:29 Q3D PRN vomiting Plan Ms. Blanca is a 88 year old female with past medical history significant for hypertension, hyperlipidemia, history of pulmonary embolism on Eliquis 5 mg, dementia, insomnia and generalized weakness (wheelchair-bound) presented to the ED due to altered mental status, nausea vomiting with blood clot and diarrhea with multiple episodes of hematochezia. #Paroxismal Atrial fibrillation, new onset -overnight team reported pt went into afib on 08/27, 2.5mg IV metoprolol give and pt has remained in sinus rhythm -telemonitor is review and pt appeared to be in a fib between midnight to 1 am. -will continue to monitor tele, will hold other rate, rhythm control meds including anticoagulation due to acute bleeding and monitor closely #Acute encephalopathy, multifactorial, improved -DDx: Acute renal failure with azotemia, acute blood loss anemia, polypharmacy, hyperglycemia, UTI, hypotension -On admission, pt was not at her baseline mentation where she is responsive and converses with family members, although this morning pt was able to express symptoms of abdominal pain but progressively became altered and became more somnolent -Head CT was negative for acute bleed -Patient is more awake and alert this morning -Hemoglobin and blood sugar stable -Treating underlying infection -Holding home medications -Holding off dialysis today per nephro recs #Acute severe blood loss anemia, likely lower GI, resolved #Hypotension DDx: Hemorrhoids, diverticular bleed, Eliquis use, peptic ulcer disease -Pt has several episodes of hemotaozia for a few days and episodes of blood tinge diarrhea -on admission Hgb 3.7 and Hct -lactic acid down trended, due to volume loss in the setting of blood loss - 4 units of pRBCs and PCC were given -Protonix every 12 hourly -post transfusion H&H was 11.1 -PRBC if hemoglobin drops below 7 -Iron panel, B12 and folate were within normal range -SCDs for DVT prophylaxis -PEG tube replaced on 08/23 -Colonoscopy done showed hemorroids and polyp in the rectum -GI consulted, appreciate recommendations #Thrombocytopenia #?HIT -Platelets on admission 127, Pt received heparin for temporary dialysis catheter and repeat platelet same day are 65 -> today -4T score for HIT 1, low probability of HIT (<5%) -will stop all heparin products and continue to monitor daily labs and signs of HIT #FIDEL with azotemia likely prerenal, improving -Underlying history of CKD stage IIIb?4 DDx: Prerenal causes: Blood loss, hypotension, diuretics, renal causes: ATN -On admission, BUN 90, creatinine 2.7 and GFR 17, likely prerenal in the setting of bloodloss/volume loss -2L bolus LR given and blood transfusion ordered -Holding of dialysis per nephrology recommendations -Dose of Lasix 40 mg given x 1 per nephro recs as patient had bilateral lower extremity swelling/edema -Strict NICOLÁS's -Avoid nephrotoxic agents, renally dose medications -Nephrology consulted, appreciate recommendations -Improved post temporary dialysis, pt is making urine #GPC Bacteremia -Blood cultures 07/13 grew GPC staph hominis in one of the 2 and Enterococcus faecium in the other -possible sources include: decubitus ulcers -temp dialysis cath removed on 08/25 -echo pending -Pt is currently on vancomycin renally dosed #Klebsiella UTI -Urinalysis was showing pyuria with positive leukocyte esterase. -Per patient's [id number] patient was having symptoms of discomfort during urination. Procalcitonin was 0.56 -Blood cultures grew GPC -Urine cultures grew klebsiella -MRSA nares + -Vancomycin started 08/24- -discontinued ceftriaxone due to thrombocytopenia on 08/26. unable to start pt on cephalosporins due to thrombocytopenia and ciprofloxacin due to QTc prolongation seen on EKG. Therefore cefuroxime is started 08/26- d/c on 08/27 -ID is consulted for further recomendations -ID recommened starting pt on Keflex 08/27- #Lactic acidosis, type A, resolved ? Likely related to blood loss -Lactic acid was 5.4--> 5.1 due to volume loss in the setting of blood loss -Lactic acid down trended #NAGMA, resolved -Likely due to ARF ?Patient presented with acidosis bicarb of 18. ABGs showed pH 7.33 -Improved post temporary dialysis -Holding diuretics and transfusing blood #?CHF -Chest x-ray was suggestive for positive fluid balance with probable trace fluid in the right fissure. CHF pattern. Worsening pulmonary edema with increased interstitial markings. -BNP was mildly elevated -Echo from 2022 showed EF 65-70% with stage I diastolic dysfunction -Dose of Lasix given 40 mg x 1 -Ordered echocardiogram to evaluate heart functions -Performing temporary dialysis -Gentle IV fluids were given -Strict NICOLÁS's -Aspiration precautions -Nasopharyngeal suctioning -Chest PT #Electrolyte disturbances #Pseudo hyponatremia, resolved #Hyperkalemia, resolved -Related to ARF, blood loss, hyperglycemia -on admission pt's potassium was 6.5. EKG showed sinus bradycardia with RBBB. Corrected sodium for glucose 136 -pt is given breathing treatment, 10 units of insulin, calcium gluconate and sodium Bicarb - Vas-Cath placed by ICU reconstructive dentist on 08/22 and removed on 08/25 -Electrolytes improved post-dialysis -will repeat labs and closely monitor -nephrology is following #Hyperglycemia,Resolved -Pt does not have history of DM and her blood sugar on admission are 461 -Lispro 6 units given, and insulin sliding scale ordered -A1c is not in good indicated marker in the setting of acute blood loss -Blood sugars significantly improved #Hypothermia, resolved -Pt temperature on admission is 92.1 liekly due to hypoperfusion in the setting of volume loss -Bear hugger was used -Monitoring temperature closely #Elevated transaminases #Elevated T. bili -Total bilirubin: Was 1.1 increased to 2.3 -AST and ALT mildly elevated -Liver ultrasound from 2022 showed CBD 0.4 cm. 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 -Likely due to blood loss, medications, liver -Avoid hepatotoxic agents -Treating ARF -Hep panel came negative #Hypertension #HLD #Generalized weakness #Osteoarthritis #Wheelchair-bound -will hold antihypertensive medications due to hypotension in the setting of volume loss -Holding on pain medications as mentation has slightly improved this morning #Failure to thrive #PEG tube placed in december 2023 -Pt has history of decreased oral intake and PEG tube was placed for tube feeds -Recently patient's formula feed for PEG tube was replace per patient's [id number], was previously on fiber plus -Dietitian consult is placed, and will resume tube feeds once EGD is completed #Dementia #Insomnia #Generalized anxiety disorder -Pt has history of dementia due to that pt often becomes combative -Will restart donepezil and tramadol, holding mirtazapine, trazodone and buspirone -Mentation has improved today -Restraints due to patient's pulling out lines -Resume Rexulti and buspirone given concern for combative behavior #Sacral decubitus ulcer #Decubitus ulcer left hip -Patient has sacral decubitus ulcer covered in surgical dressing. Plan: -referral to wound care placed -Frequent repositioning -Vitamin C zinc sulfate #Hx PE on Eliquis -will hold home eliquis due to GI bleed -PCC complex given for reversal Health Maintenance Disposition: Patient is admitted for further workup and management of acute encephalopathy, treatment of UTI and bacteremia DVT Prophylaxis: SCDs GI Prophylaxis: Pantoprozol-40 IV BID Diet: NPO Lines: Peripheral lines Code status: Full Assessment and plan discussed with my senior resident Dr. Kahn & attending physician Dr. Kennedy Bolaños (PGY-1)- Internal medicine resident Attending Provider Attestation/Addendum I have discussed and was present for the essential components of the history, physical examination, diagnosis, and treatment plan with the resident. I agree with the patient's care as documented by the resident and amended herein by me. Mark Benavides DO. Although this document has been carefully reviewed, there may still be some phonetic and other typographical errors. These errors are purely grammatical due to imperfections in the software program and should not be construed in any way to compromise the substance of the patient's medical care during this visit.
--- NOTE | 2024-08-27 15:29 | ESPR_ITS ---
Documentation for date of: 08/27/24 Subjective Subjective Interval history: Ms. Dyer is a 88-year-old female with past medical history of hypertension, hyperlipidemia, pulmonary embolism on Eliquis, dementia, insomnia presented to the hospital with chief complaints of nausea, vomiting, diarrhea since 1 day. At baseline patient was bedbound and have severe dementia, taken care by her [id number]. Patient was apparently at her baseline 1 day ago. Yesterday, daughter noted patient is having episodes of epistaxis and resolved after applying pressure to it. This morning patient was found to have blood pressure of 100/40 for which her blood pressure medications were not given and later patient found to have 2 episodes of vomiting with blood in it. [id number] also stated that she noticed brownish discoloration of stools this morning. Later found to have bloody stools. Denies fever, shortness of breath, chest pain, palpitations ED Course: -Initial vitals were blood pressure 155/63 mmHg, pulse rate 67/min, respiratory rate 22/min, temperature 92.1 ?F, SpO2 100% with 2 L oxygen -Labs significant for WBC 14.6, Hb 3.7, platelets 127, sodium 130, potassium 6.3, bicarb 18.1, BUN 90, creatinine 2.7, glucose 461, lactate 5.1, AST 58, ALT 52, procalcitonin 0.56 -Urine analysis showed turbid urine with 77 WBC -Chest x ray did not show any patchy infiltrates -In the ED, patient was given hyperkalemic treatment Nephrology was consulted in view of acute kidney injury 08/26/2024 Patient was seen and examined bedside Still patient appears mildly confused, could be multifactorial including hospital induced delirium and hypernatremia, baseline dementia Vitals are stable. Patient is able to make adequate amount of urine. Labs showed sodium 152, potassium 3 Recommended to give 60 mL free water flushes every hourly based on free water deficit through G-tube Recommended to discontinue Ha catheter if that is no other indication 08/27/2024 Patient is seen and examined bedside No acute overnight events. Still her cognition appears to decline Vitals are stable Sodium levels are still elevated and increased water flushes to 80ml/hr based on her fluid deficit Ordered purewick catheter placement to monitor urine output Exam Vital Signs Temp Pulse Resp BP Pulse Ox O2 Del Method O2 Flow Rate 98.1 F 81 13 152/81 H 97 Room Air 2 08/27/24 12:00 08/27/24 12:00 08/27/24 12:00 08/27/24 12:00 08/27/24 12:00 08/27/24 12:00 08/26/24 16:00 Narrative Exam General: still confused HEENT: Normocephalic, atraumatic, mucous membranes moist. Heart: Irregular rate and rhythm, no murmurs. Lungs: Clear to auscultation with no wheezing. Fine crackles heard at the basal areas Abdomen: Soft, nondistended, nontender, positive bowel sounds. ?No guarding or rebound tenderness. Neurologic: Still confused Extremities: Left lower extremity pitting pedal edema Skin: No rash or ecchymoses. Objective Labs 08/28/24 06:10 08/28/24 14:14 Labs: Laboratory Results - last 24 hr 08/26/24 08/26/24 08/27/24 18:45 22:03 04:37 WBC 11.8 H RBC 3.56 L Hgb 10.8 L Hct 33.7 L MCV 95 MCH 30.3 MCHC 32.0 RDW Std Deviation 62.5 H Plt Count 28 L* Neut % (Auto) 72 Lymph % (Auto) 9 L [place] % (Auto) 11 Eos % (Auto) 1 Baso % (Auto) 1 Neut # (Auto) 8.5 H Lymph # (Auto) 1.1 [place] # (Auto) 1.3 H Eos # (Auto) 0.1 Baso # (Auto) 0.1 Immature Gran # (Auto) 0.80 H Absolute Nucleated RBC 0.15 H Immature Gran % 7 H Nucleated RBC % 1 H Sodium 151 H 155 H 151 H Potassium 3.4 Chloride 112 H Carbon Dioxide 27.0 Anion Gap 12 BUN 41 H Creatinine 1.3 Estim Creat Clear Calc 24.1 L eGFR 40 L BUN/Creatinine Ratio 32 H Glucose 140 H Calculated Osmolality 311 H Calcium 8.4 Corrected Calcium 9.2 Phosphorus 3.0 Magnesium 2.1 Total Bilirubin 4.0 H AST 57 H ALT 52 H Alkaline Phosphatase 236 H Total Protein 5.6 L Albumin 3.0 L Globulin 2.6 Albumin/Globulin Ratio 1.2 Misc Test Result Platelets confirmed 08/27/24 08/27/24 08:54 12:53 WBC RBC Hgb Hct MCV MCH MCHC RDW Std Deviation Plt Count Neut % (Auto) Lymph % (Auto) [place] % (Auto) Eos % (Auto) Baso % (Auto) Neut # (Auto) Lymph # (Auto) [place] # (Auto) Eos # (Auto) Baso # (Auto) Immature Gran # (Auto) Absolute Nucleated RBC Immature Gran % Nucleated RBC % Sodium 150 H 149 H Potassium Chloride Carbon Dioxide Anion Gap BUN Creatinine Estim Creat Clear Calc eGFR BUN/Creatinine Ratio Glucose Calculated Osmolality Calcium Corrected Calcium Phosphorus Magnesium Total Bilirubin AST ALT Alkaline Phosphatase Total Protein Albumin Globulin Albumin/Globulin Ratio Misc Test Result ABG Interpretation ABG results: 08/22/24 14:52 ABG pH 7.33 L ABG pCO2 37 ABG pO2 142 H ABG HCO3 20 ABG O2 Saturation 101 H ABG Base Excess -6 L Quality Measures Quality Measures VTE prophylaxis (sCDs) Advance care planning discussed with:: other Assessment & Plan Assessment Current Active Medications: Generic Name Dose Route Start Last Admin Trade Name Freq PRN Reason Stop Dose Admin Acetaminophen 650 mg 08/23/24 14:13 Acetaminophen Leni 325 Mg/10 Ml Udc GT 09/21/24 15:54 Q6HR PRN Fever >100.4 or pain (1-3) Amlodipine Besylate 5 mg 08/27/24 09:00 08/27/24 08:38 Amlodipine Besylate 2.5 Mg Tablet PO 09/26/24 08:59 5 mg QDAY MANUEL Administration Apixaban 5 mg 08/24/24 21:00 08/25/24 21:00 Apixaban 2.5 Mg Tablet PO 09/14/24 20:59 Not Given BID MANUEL Ascorbic Acid 500 mg 08/23/24 21:00 08/27/24 08:39 Ascorbic Acid 250 Mg Tablet PO 09/22/24 20:59 500 mg BID MANUEL Administration Buspirone HCl 10 mg 08/24/24 21:00 08/26/24 21:43 Buspirone Hcl 5 Mg Tablet GT 09/23/24 20:59 10 mg HS MANUEL Administration Cephalexin HCl 500 mg 08/28/24 09:00 Cephalexin 250 Mg Capsule PO 09/04/24 08:59 QDAY MANUEL Dextrose 50 ml 08/22/24 12:23 Dextrose 50%-Water Inj 50 Ml Syringe IV 09/21/24 12:22 Q15MIN PRN BG <50 OR BG <70 & pt unresponsive Dextrose 25 ml 08/22/24 12:26 Dextrose 50%-Water Inj 50 Ml Syringe IV 09/21/24 12:25 Q15MIN PRN BG 50-70 responsive npo pt Donepezil HCl 10 mg 08/23/24 21:00 08/26/24 21:42 Donepezil Hcl 5 Mg Tablet PO 09/22/24 20:59 10 mg HS [facility] Administration Famotidine 20 mg 08/28/24 09:00 Famotidine 20 Mg Tablet PO 09/27/24 08:59 QDAY MANUEL Glucagon 1 mg 08/22/24 12:26 Glucagon Inj 1 Mg Vial IM Q15MIN PRN BG <70, and no IV access Hydrochlorothiazide 25 mg 08/27/24 12:00 08/27/24 11:29 Hydrochlorothiazide 12.5 Mg Capsule PO 09/26/24 11:59 25 mg DAILY@1200 MANUEL Administration Albumin Human 25 gm in 100 mls @ 100 mls/min 08/22/24 14:55 Albuminar-25 Ivpb IV PRN PRN DIALYSIS Insulin Glargine 10 unit 08/22/24 21:00 08/26/24 21:43 Insulin Glargine (Lantus) 5 Unit/0.05 Ml (Per 5 Units) SC 09/21/24 20:59 10 unit [facility] Administration Insulin Human Lispro 0 unit 08/22/24 16:28 08/27/24 12:06 Insulin Lispro (Admelog) 1 Unit/0.01 Ml Unit SC 09/21/24 16:27 Not Given Q6HR [facility] Protocol Metoprolol Tartrate 25 mg 08/27/24 00:37 08/27/24 08:38 Metoprolol Tartrate 25 Mg Tablet PO 09/25/24 08:59 25 mg QDAY [facility] Administration Home Medication- 0.5 mg 08/22/24 21:00 08/26/24 21:50 Please Speak With NG 09/21/24 20:59 Not Given Patient Caregiver To [facility] Have Rx Brought To [facility] Scopolamine 1 mg 08/23/24 08:18 Scopolamine 1 Mg Tdsy TOP 09/22/24 08:29 Q3D PRN vomiting Plan 88-year-old female with past medical history of hypertension, hyperlipidemia, pulmonary embolism on Eliquis, dementia, insomnia presented to the hospital with chief complaints of nausea, vomiting, diarrhea since 1 day. # Acute kidney injury on Ckd stage IIIb, resolved Likely prerenal FIDEL vs ATN in the setting of anemia, GI bleed -Brought to the hospital with complaints of nausea, vomiting, diarrhea and bloody stools. -Baseline creatinine on 06/2024 is 1.2 -On the day of admission, 08/22/2024 creatinine 2.7, BUN 90 > 08/23, BUN 42, Cr 1.6 >08/25, BUN 30, Cr 1.4 >08/26, BUN 37, Cr 1.3 >08/27, Cr 1.3 -Patient also noted to have improving urine output Plan -In view of hyperkalemia, decreased urine output and FIDEL, recommended to do hemodialysis on 08/23/2023 -As patient's renal functions are getting better, will hold off on dialysis -Recommended to remove the Dialysis catheter and ha catheter as the renal functions are stable and patient is making adequate amount of urine -Continue to monitor urine output and renal functions -Avoid nephrotoxic medication and renally dose medications # Hyperchloremic hypernatremia, resolving -On 08/27/2024, sodium is 151, chloride is 112 -Recommended to give 80ml water flushes every hourly through G tube -Recommended to monitor electrolytes #Hypokalemia, resolved -Potassium as of 08/26/2024 is 3.4 -Potassium replacement through G tube #Non AnionGap Metabolic acidosis, resolved #Lactic acidosis, resolved -Bicarb at the time of admission is 18.1, Lactic acid is 5.4 on 08/22/2024 -On 08/24/2024, Bicarb and potassium is WNL -Monitor electrolytes #Acute encephalopathy, multifactorial #Acute severe blood loss anemia, likely lower GI #Hypotension #Lactic acidosis, type A #UTI #Hyperglycemia #Elevated transaminases #Elevated T. bili #Hypertension #HLD #Generalized weakness #Osteoarthritis #Wheelchair-bound #Failure to thrive #PEG tube placed in december 2023 #Dementia #Insomnia #Generalized anxiety disorder #Sacral decubitus ulcer #Decubitus ulcer left hip #Hx PE on Eliquis -Rest of the medical conditions to be treated as per primary team Thank you for allowing us to involve in the care of the patient Patient plan of care was discussed with the attending physician, Dr. Keven Peters, PGY1 Attending Provider Attestation/Addendum Patient seen and examined with resident physician Dr. Lassiter. Note reviewed, agree with findings and recommendations. Labs, medications reviewed. Patient more alert and awake after 1 dialysis session. Today patient seems to be sleepy and had restraints. Urine output and creatinine markedly improved. Discontinue dialysis and dialysis catheter. Hyponatremia noted-will increase free water flushes through the G-tube. Overall her prognosis remains poor with decreased mentation and failure to thrive Plan of care discussed with hospitalist team.
--- NOTE | 2024-08-27 16:46 | PC.SS ---
Rounding Note: Rapid response initiated on the patient last night due to AFIB.
--- NOTE | 2024-08-27 17:00 | PC.SS ---
APPLICATIONS TESTER conducted bedside contact with the patient.? Present at bedside with patient was daughter in law, Kenisha.? Daughter in law confirmed that discharge plan is for the patient to return home with home health services.? Prior to admission patient aligned with [facility] health.? Patient receiving nursing and wound shelter health services.? Daughter in law declined SNF placement for the patient.?
[2024-08-27 17:16] LABS: Sodium 152 mMol/L (136-145)
--- NOTE | 2024-08-27 20:46 | PD.IMPROG ---
Documentation for date of: 08/27/24 Subjective Subjective Interval history: Hemoglobin hematocrit 10.8 and 33.7 Exam Vital Signs Temp Pulse Resp BP Pulse Ox O2 Del Method O2 Flow Rate 98.4 F 100 16 137/79 H 98 Room Air 2 08/27/24 16:00 08/27/24 20:01 08/27/24 20:01 08/27/24 16:00 08/27/24 20:01 08/27/24 16:00 08/26/24 16:00 Objective Labs 08/27/24 04:37 08/27/24 16:15 Labs: Laboratory Results - last 24 hr 08/26/24 08/27/24 08/27/24 22:03 04:37 08:54 WBC 11.8 H RBC 3.56 L Hgb 10.8 L Hct 33.7 L MCV 95 MCH 30.3 MCHC 32.0 RDW Std Deviation 62.5 H Plt Count 28 L* Neut % (Auto) 72 Lymph % (Auto) 9 L [place] % (Auto) 11 Eos % (Auto) 1 Baso % (Auto) 1 Neut # (Auto) 8.5 H Lymph # (Auto) 1.1 [place] # (Auto) 1.3 H Eos # (Auto) 0.1 Baso # (Auto) 0.1 Immature Gran # (Auto) 0.80 H Absolute Nucleated RBC 0.15 H Immature Gran % 7 H Nucleated RBC % 1 H Sodium 155 H 151 H 150 H Potassium 3.4 Chloride 112 H Carbon Dioxide 27.0 Anion Gap 12 BUN 41 H Creatinine 1.3 Estim Creat Clear Calc 24.1 L eGFR 40 L BUN/Creatinine Ratio 32 H Glucose 140 H Calculated Osmolality 311 H Calcium 8.4 Corrected Calcium 9.2 Phosphorus 3.0 Magnesium 2.1 Total Bilirubin 4.0 H AST 57 H ALT 52 H Alkaline Phosphatase 236 H Total Protein 5.6 L Albumin 3.0 L Globulin 2.6 Albumin/Globulin Ratio 1.2 Misc Test Result Platelets confirmed 08/27/24 08/27/24 12:53 16:15 WBC RBC Hgb Hct MCV MCH MCHC RDW Std Deviation Plt Count Neut % (Auto) Lymph % (Auto) [place] % (Auto) Eos % (Auto) Baso % (Auto) Neut # (Auto) Lymph # (Auto) [place] # (Auto) Eos # (Auto) Baso # (Auto) Immature Gran # (Auto) Absolute Nucleated RBC Immature Gran % Nucleated RBC % Sodium 149 H 152 H Potassium Chloride Carbon Dioxide Anion Gap BUN Creatinine Estim Creat Clear Calc eGFR BUN/Creatinine Ratio Glucose Calculated Osmolality Calcium Corrected Calcium Phosphorus Magnesium Total Bilirubin AST ALT Alkaline Phosphatase Total Protein Albumin Globulin Albumin/Globulin Ratio Misc Test Result Impressions Impression: Hemorrhagic gastritis Diverticulosis left colon Status postplacement of a new PEG tube continue current management ABG Interpretation ABG results: 08/22/24 14:52 ABG pH 7.33 L ABG pCO2 37 ABG pO2 142 H ABG HCO3 20 ABG O2 Saturation 101 H ABG Base Excess -6 L Assessment & Plan A&P Narrative anemia contaminants in bc dementia, non verbal htn ckd stopped vanco cefuroxime ok for urine, but keflex is cheaper so you may send her out on that for total of 7d overall. and adjust the dose for her ckd will see again prn ordered bnp for am. high na noted. may be relative dehydration. w/u for dementia per others. Time Spent With Patient Time: Total time spent is greater than 50% in coordination of care (as documented) at patient's floor/unit and/or counseling patient:
[2024-08-27] MEDS: DONEPEZIL HCL 5 MG TABLET 10 MG PO (21:08)
[2024-08-27] MEDS: BusPIRone HCL 5 MG TABLET 10 MG GT (21:08)
[2024-08-27] MEDS: INSULIN GLARGINE (Lantus) 5 UNIT/0.05 ML (PER 5 UNITS) 10 UNIT SC (21:22)
[2024-08-27 21:25] LABS: Sodium 149 mMol/L (136-145)
[2024-08-28] VITALS (10 sets, daily range): BP systolic 146–161; BP diastolic 65–79; PULSE 80–117; RESP 14–20; TEMP 36.4–36.7; O2SAT 97–100; BMI 25.9
[2024-08-28 01:42] LABS: Sodium 150 mMol/L (136-145)
--- NOTE | 2024-08-28 04:15 | PC.NURSE ---
[address] Chakraborty pt converted to Aflutter HR 109, no orders received, per MD if pts HR sustains 115 or greater inform him.
[2024-08-28] MEDS: INSULIN LISPRO (AdmeLOG) 1 UNIT/0.01 ML UNIT SC (05:30)
[2024-08-28 06:29] LABS: Basophils # (Auto) 0.1 Thou/mm3 (0.0-0.2); Basophils % (Auto) 0 % (0-2.5); Eosinophils # (Auto) 0.2 Thou/mm3 (0.0-0.5); Eosinophils % (Auto) 1 % (0-10); Hematocrit 31.8 % (36.0-46.0); Hemoglobin 10.2 g/dL (12.0-16.0); Immature Granulocytes % (Auto) 6 % (0-0); Lymphocytes # (Auto) 1.1 Thou/mm3 (1.0-4.8); Lymphocytes % (Auto) 8 % (10-50); Mean Corpuscular HGB Conc 32.1 g/dl (31.0-37.0); Mean Corpuscular Hemoglobin 30.4 pg (25.0-35.0); Mean Corpuscular Volume 95 fL (80-100); Monocytes % (Auto) 7 % (0-12); Neutrophils # (Auto) 10.8 Thou/mm3 (1.8-7.7); Neutrophils % (Auto) 77 % (37-80); Nucleated Red Blood Cell # 0.19 Thou/mm3 (0.00-0.00); Nucleated Red Blood Cell % 1 /100 WBC (0); RDW Standard Deviation 63.4 fL (36.4-46.3); Red Blood Count 3.36 Miln/mm3 (4.00-5.20); White Blood Count 14.1 Thou/mm3 (3.6-11.0)
[2024-08-28 06:32] LABS: Platelet Count 27 Thou/mm3 (140-440)
[2024-08-28 06:46] LABS: Ammonia 43 uMol/L (11-32)
[2024-08-28 06:54] LABS: B-Type Natriuretic Peptide 345 pg/mL (0-100)
[2024-08-28 06:59] LABS: Folate > 24.00 ng/mL (>5.38); Vitamin B12 > 2000 pg/mL (211-911)
[2024-08-28 06:59] LABS: Heparin-Induced PLT AB NEGATIVE (NEGATIVE)
[2024-08-28 07:09] LABS: Alanine Aminotransferase 54 U/L (10-49); Albumin, Serum 2.9 gm/dL (3.4-4.8); Albumin/Globulin Ratio 1.1 (1.2-2.2); Alkaline Phosphatase 252 U/L (46-116); Anion Gap 11 (7-16); Aspartate Amino Transferase 59 U/L (0-34); BUN/Creatinine Ratio 42 Ratio (12-20); Bilirubin,Total 3.2 mg/dL (0.3-1.2); Blood Urea Nitrogen 42 mg/dL (9-23); Calcium 8.6 mg/dL (8.3-10.6); Calcium (Corrected) 9.5 mg/dL (8.5-10.1); Carbon Dioxide 24.1 mMol/L (20.0-31.0); Chloride 116 mMol/L (98-107); Estimated Creatinine Clearance 30.8 mL/min (>60); Globulin 2.6 gm/dL (2.3-3.5); Glucose 172 mg/dL (74-106); Osmolality,Calculated 314 (275-295); Phosphorous 2.4 mg/dL (2.4-5.1); Potassium 3.4 mMol/L (3.4-5.1); Sodium 151 mMol/L (136-145); Thyroid Stimulating Hormone 2.77 uIU/mL (0.55-4.78); Total Protein 5.5 gm/dL (5.7-8.2); eGFR 55 See Note
[2024-08-28 07:10] LABS: Syphilis Nonreactive (Nonreactive)
[2024-08-28] MEDS: ASCORBIC ACID 250 MG TABLET 500 MG PO (08:25)
[2024-08-28] MEDS: cephALEXin 250 MG CAPSULE 500 MG PO (08:25)
[2024-08-28] MEDS: METOPROLOL TARTRATE 25 MG TABLET PO (08:25)
[2024-08-28] MEDS: FAMOTIDINE 20 MG TABLET PO (08:26)
[2024-08-28] MEDS: amLODIPine BESYLATE 2.5 MG TABLET 5 MG PO (08:26)
[2024-08-28 11:45] LABS: Sodium 147 mMol/L (136-145)
[2024-08-28] MEDS: hydroCHLOROthiazide 12.5 MG CAPSULE 25 MG PO (12:47)
[2024-08-28] MEDS: ACETAMINOPHEN SOL 325 MG/10 ML UDC 650 MG GT (12:57)
--- NOTE | 2024-08-28 13:46 | ESPR_ITS ---
Documentation for date of: 08/28/24 Subjective Subjective Interval history: Ms. Dyer is a 88-year-old female with past medical history of hypertension, hyperlipidemia, pulmonary embolism on Eliquis, dementia, insomnia presented to the hospital with chief complaints of nausea, vomiting, diarrhea since 1 day. At baseline patient was bedbound and have severe dementia, taken care by her puxaqxgh-yb-lad. Patient was apparently at her baseline 1 day ago. Yesterday, daughter noted patient is having episodes of epistaxis and resolved after applying pressure to it. This morning patient was found to have blood pressure of 100/40 for which her blood pressure medications were not given and later patient found to have 2 episodes of vomiting with blood in it. [id number] also stated that she noticed brownish discoloration of stools this morning. Later found to have bloody stools. Denies fever, shortness of breath, chest pain, palpitations ED Course: -Initial vitals were blood pressure 155/63 mmHg, pulse rate 67/min, respiratory rate 22/min, temperature 92.1 ?F, SpO2 100% with 2 L oxygen -Labs significant for WBC 14.6, Hb 3.7, platelets 127, sodium 130, potassium 6.3, bicarb 18.1, BUN 90, creatinine 2.7, glucose 461, lactate 5.1, AST 58, ALT 52, procalcitonin 0.56 -Urine analysis showed turbid urine with 77 WBC -Chest x ray did not show any patchy infiltrates -In the ED, patient was given hyperkalemic treatment Nephrology was consulted in view of acute kidney injury 08/26/2024 Patient was seen and examined bedside Still patient appears mildly confused, could be multifactorial including hospital induced delirium and hypernatremia, baseline dementia Vitals are stable. Patient is able to make adequate amount of urine. Labs showed sodium 152, potassium 3 Recommended to give 60 mL free water flushes every hourly based on free water deficit through G-tube Recommended to discontinue Ha catheter if that is no other indication 08/27/2024 Patient is seen and examined bedside No acute overnight events. Still her cognition appears to decline Vitals are stable Sodium levels are still elevated and increased water flushes to 80ml/hr based on her fluid deficit Ordered purewick catheter placement to monitor urine output 08/28/2024 Patient is seen and examined bedside Patient still appears to be confused and not responding appropriately to questions, which could be her baseline medical condition Urinary output cannot monitor as patient had large bowel movements yesterday and pure wick catheter cannot be placed, but patient had wet diapers since yesterday Vitals are stable. Labs showed WBC 14.1, Hb 10.2, sodium 145, chloride 116, BUN 42, creatinine 1, total bilirubin 3.2, AST 59, ALT 54, ammonia 43 Recommended to continue water flushes and monitor sodium, urine output. Exam Vital Signs Temp Pulse Resp BP Pulse Ox O2 Del Method O2 Flow Rate 97.6 F 105 H 20 146/70 H 99 Room Air 2 08/28/24 08:00 08/28/24 12:47 08/28/24 08:00 08/28/24 12:47 08/28/24 08:00 08/28/24 08:00 08/26/24 16:00 Narrative Exam General: still confused HEENT: Normocephalic, atraumatic, mucous membranes moist. Heart: Irregular rate and rhythm, no murmurs. Lungs: Clear to auscultation with no wheezing. Abdomen: Soft, nondistended, nontender, positive bowel sounds. ?No guarding or rebound tenderness. Neurologic: Still confused Extremities: Left lower extremity pitting pedal edema Skin: No rash or ecchymoses. Objective Labs 08/28/24 06:10 08/28/24 14:14 Labs: Laboratory Results - last 24 hr 08/26/24 08/27/24 08/27/24 04:47 16:15 20:35 WBC RBC Hgb Hct MCV MCH MCHC RDW Std Deviation Plt Count Neut % (Auto) Lymph % (Auto) [place] % (Auto) Eos % (Auto) Baso % (Auto) Neut # (Auto) Lymph # (Auto) [place] # (Auto) Eos # (Auto) Baso # (Auto) Immature Gran # (Auto) Absolute Nucleated RBC Immature Gran % Nucleated RBC % Sodium 152 H 149 H Potassium Chloride Carbon Dioxide Anion Gap BUN Creatinine Estim Creat Clear Calc eGFR BUN/Creatinine Ratio Glucose Calculated Osmolality Calcium Corrected Calcium Phosphorus Magnesium Total Bilirubin AST ALT Alkaline Phosphatase Ammonia B-Natriuretic Peptide Total Protein Albumin Globulin Albumin/Globulin Ratio Vitamin B12 Folate TSH Heparin-Ind Plt Ab Scrn NEGATIVE Heparin Dep Plt Ab OD 0.131 Syphilis Serology 08/28/24 08/28/24 08/28/24 01:03 06:10 11:12 WBC 14.1 H RBC 3.36 L Hgb 10.2 L Hct 31.8 L MCV 95 MCH 30.4 MCHC 32.1 RDW Std Deviation 63.4 H Plt Count 27 L* Neut % (Auto) 77 Lymph % (Auto) 8 L [place] % (Auto) 7 Eos % (Auto) 1 Baso % (Auto) 0 Neut # (Auto) 10.8 H Lymph # (Auto) 1.1 [place] # (Auto) 1.0 H Eos # (Auto) 0.2 Baso # (Auto) 0.1 Immature Gran # (Auto) 0.90 H Absolute Nucleated RBC 0.19 H Immature Gran % 6 H Nucleated RBC % 1 H Sodium 150 H 151 H 147 H Potassium 3.4 Chloride 116 H Carbon Dioxide 24.1 Anion Gap 11 BUN 42 H Creatinine 1.0 Estim Creat Clear Calc 30.8 L eGFR 55 L BUN/Creatinine Ratio 42 H Glucose 172 H Calculated Osmolality 314 H Calcium 8.6 Corrected Calcium 9.5 Phosphorus 2.4 Magnesium 2.0 Total Bilirubin 3.2 H D AST 59 H ALT 54 H Alkaline Phosphatase 252 H Ammonia 43 H B-Natriuretic Peptide 345 H Total Protein 5.5 L Albumin 2.9 L Globulin 2.6 Albumin/Globulin Ratio 1.1 L Vitamin B12 > 2000 H Folate > 24.00 TSH 2.77 Heparin-Ind Plt Ab Scrn Heparin Dep Plt Ab OD Syphilis Serology Nonreactive ABG Interpretation ABG results: 08/22/24 14:52 ABG pH 7.33 L ABG pCO2 37 ABG pO2 142 H ABG HCO3 20 ABG O2 Saturation 101 H ABG Base Excess -6 L Quality Measures Quality Measures VTE prophylaxis (sCDs) Advance care planning discussed with:: other Assessment & Plan Assessment Current Active Medications: Generic Name Dose Route Start Last Admin Trade Name Freq PRN Reason Stop Dose Admin Acetaminophen 650 mg 08/23/24 14:13 08/28/24 12:57 Acetaminophen Leni 325 Mg/10 Ml Udc GT 09/21/24 15:54 650 mg Q6HR PRN Administration Fever >100.4 or pain (1-3) Amlodipine Besylate 5 mg 08/27/24 09:00 08/28/24 08:26 Amlodipine Besylate 2.5 Mg Tablet PO 09/26/24 08:59 5 mg QDAY MANUEL Administration Apixaban 5 mg 08/24/24 21:00 08/27/24 21:27 Apixaban 2.5 Mg Tablet PO 09/14/24 20:59 Not Given BID MANUEL Ascorbic Acid 500 mg 08/23/24 21:00 08/28/24 08:25 Ascorbic Acid 250 Mg Tablet PO 09/22/24 20:59 500 mg BID MANUEL Administration Buspirone HCl 10 mg 08/24/24 21:00 08/27/24 21:08 Buspirone Hcl 5 Mg Tablet GT 09/23/24 20:59 10 mg HS MANUEL Administration Cephalexin HCl 500 mg 08/28/24 09:00 08/28/24 08:25 Cephalexin 250 Mg Capsule PO 09/04/24 08:59 500 mg QDAY MANUEL Administration Dextrose 50 ml 08/22/24 12:23 Dextrose 50%-Water Inj 50 Ml Syringe IV 09/21/24 12:22 Q15MIN PRN BG <50 OR BG <70 & pt unresponsive Dextrose 25 ml 08/22/24 12:26 Dextrose 50%-Water Inj 50 Ml Syringe IV 09/21/24 12:25 Q15MIN PRN BG 50-70 responsive npo pt Donepezil HCl 10 mg 08/23/24 21:00 08/27/24 21:08 Donepezil Hcl 5 Mg Tablet PO 09/22/24 20:59 10 mg HS MANUEL Administration Famotidine 20 mg 08/28/24 09:00 08/28/24 08:26 Famotidine 20 Mg Tablet PO 09/27/24 08:59 20 mg QDAY MANULE Administration Glucagon 1 mg 08/22/24 12:26 Glucagon Inj 1 Mg Vial IM Q15MIN PRN BG <70, and no IV access Hydrochlorothiazide 25 mg 08/27/24 12:00 08/28/24 12:47 Hydrochlorothiazide 12.5 Mg Capsule PO 09/26/24 11:59 25 mg DAILY@1200 MANUEL Administration Albumin Human 25 gm in 100 mls @ 100 mls/min 08/22/24 14:55 Albuminar-25 Ivpb IV PRN PRN DIALYSIS Insulin Glargine 10 unit 08/22/24 21:00 08/27/24 21:22 Insulin Glargine (Lantus) 5 Unit/0.05 Ml (Per 5 Units) SC 09/21/24 20:59 10 unit HS [facility] Administration Insulin Human Lispro 0 unit 08/22/24 16:28 08/28/24 05:30 Insulin Lispro (Admelog) 1 Unit/0.01 Ml Unit VT 09/21/24 16:27 3 unit Q6HR [facility] Administration Protocol Metoprolol Tartrate 25 mg 08/27/24 00:37 08/28/24 08:25 Metoprolol Tartrate 25 Mg Tablet PO 09/25/24 08:59 25 mg QDAY [facility] Administration Home Medication- 0.5 mg 08/22/24 21:00 08/27/24 21:29 Please Speak With NG 09/21/24 20:59 Not Given Patient Caregiver To [facility] Have Rx Brought To [facility] Scopolamine 1 mg 08/23/24 08:18 Scopolamine 1 Mg Tdsy TOP 09/22/24 08:29 Q3D PRN vomiting Plan 88-year-old female with past medical history of hypertension, hyperlipidemia, pulmonary embolism on Eliquis, dementia, insomnia presented to the hospital with chief complaints of nausea, vomiting, diarrhea since 1 day. # Acute kidney injury on Ckd stage IIIb, resolved Likely prerenal FIDEL vs ATN in the setting of anemia, GI bleed -Brought to the hospital with complaints of nausea, vomiting, diarrhea and bloody stools. -Baseline creatinine on 06/2024 is 1.2 -On the day of admission, 08/22/2024 creatinine 2.7, BUN 90 > 3/15, BUN 42, Cr 1.6 >3/17, BUN 30, Cr 1.4 >3/18, BUN 37, Cr 1.3 >/, Cr 1.3 -Patient also noted to have improving urine output Plan -In view of hyperkalemia, decreased urine output and FIDEL, recommended to do hemodialysis on 08/23/2023 -As patient's renal functions are getting better, will hold off on dialysis -Recommended to remove the Dialysis catheter and ha catheter as the renal functions are stable and patient is making adequate amount of urine -Continue to monitor urine output and renal functions -Avoid nephrotoxic medication and renally dose medications # Hyperchloremic hypernatremia, resolving -On 08/28/2024, sodium is 145, chloride is 116 -Recommended to give 80ml water flushes every hourly through G tube -Recommended to monitor electrolytes #Hypokalemia, resolved -Potassium as of 08/28/2024 is 3.4 -Potassium replacement through G tube #Non AnionGap Metabolic acidosis, resolved #Lactic acidosis, resolved -Bicarb at the time of admission is 18.1, Lactic acid is 5.4 on 08/22/2024 -On 08/24/2024, Bicarb and potassium is WNL -Monitor electrolytes #Acute encephalopathy, multifactorial #Acute severe blood loss anemia, likely lower GI #Hypotension #Lactic acidosis, type A #UTI #Hyperglycemia #Elevated transaminases #Elevated T. bili #Hypertension #HLD #Generalized weakness #Osteoarthritis #Wheelchair-bound #Failure to thrive #PEG tube placed in december 2023 #Dementia #Insomnia #Generalized anxiety disorder #Sacral decubitus ulcer #Decubitus ulcer left hip #Hx PE on Eliquis -Rest of the medical conditions to be treated as per primary team Thank you for allowing us to involve in the care of the patient Patient plan of care was discussed with the attending physician, Dr. Keven Peters, PGY1 Attending Provider Attestation/Addendum Patient seen and examined with resident physician Dr. Lassiter. Note reviewed, agree with findings and recommendations. Labs, medications reviewed. Patient more alert and awake after 1 dialysis session. Urine output and creatinine markedly improved. Discontinue dialysis and dialysis catheter. Hyponatremia noted-will increase free water flushes through the G-tube. Overall her prognosis remains poor with decreased mentation and failure to thrive noted [id number] requesting all Measures. Plan of care discussed with hospitalist team. Patient will be discharged on p.o. Lasix.
[2024-08-28 14:05] LABS: Slide Review Platelets confirmed
[2024-08-28 14:31] LABS: Sodium 145 mMol/L (136-145)
--- NOTE | 2024-08-28 15:07 | PD.RESDS ---
Planned Discharge Date 08/28/24 DS: Providers Provider Date of admission: 08/22/24 12:20 Primary care physician: Gilbert Hendricks MD Admitting Provider: Matheus Vera MD Attending Provider on Admission: Jarrod Benavides DO Consults: 08/22/24 11:04 Consult to Gastroenterology Stat Comment: Consulting Provider: Manan Díaz 08/22/24 13:26 Consult to Nephrology Stat Comment: Consulting Provider: Galen Baca 08/22/24 14:48 Referral Registered Dietitian Routine Comment: 08/22/24 16:27 Referral Wound Care Routine Comment: 08/26/24 13:08 Consult to Infectious Diseases Stat Comment: S. Hominis Bacteremia - MDR Consulting Provider: Kolby Giles Attending Provider on DC: Violet Bolaños MD Discharging Provider: Violet Bolaños MD DS: Diagnosis Problem List Completed Was Problem List Reviewed/Reconciled?: Yes Hospital Course Hospital Course Hospital course: Ms. Blanca is a 88 year old female with past medical history significant for hypertension, hyperlipidemia, history of pulmonary embolism on Eliquis 5 mg, dementia, insomnia and generalized weakness (wheelchair-bound), s/p PEG tube placement, presented to the [facility] ED due to altered mental status, nausea vomiting and diarrhea with multiple episodes of hematochezia. On admission Pt Hgb was 3.7 and 4 units of pRBC and 1 unit of platelet was transfused and pt's home eliquis was held. Pt was also found to have worsening acute kidney injury and hyperkalemia on admission and Pt was not producing urine despite 2 L bolus fluids therefore, temporary dialysis cath was placed and received 1 session of urgent dialysis. Urine culture grew Klebsilla and BC cultures each bottle grew 2 different organisms including staph hominis and enterococcuss faecium, Pt was started on IV antibiotics and temporary dialysis cath was removed. Pt also had hypernatremia, Sodium peaked at 156 and water flushed through the Gtube were increased to 100ml/hr which normalized the sodium. During hospitalization pt underwent endoscopy and no signs of active bleeding however PEG balloon was busted and the PEG tube was replaced. And Pt underwent colonoscopy which showed hemorrhoids and polyp in the rectum and no evidence of bleeding. Per GI recommendation Pt may resume eliquis. Pt is hemodynamically stable and back to her baseline mentation. Pt is to be be discharged home under the care of son and daughter in law. And family is notified. Discharge Recommendations -Follow up with your primary care within 2 weeks after discharge -Continue the antibiotics for one more day -Continue the remainder of your medications as prescribed -Follow up with cardiology outpatient for an updated echo -If your symptoms return or worsen promptly return to the ED Hospitalization Diagnosis #Paroxismal Atrial fibrillation, new onset #Acute encephalopathy, multifactorial, improved #Acute severe blood loss anemia, likely lower GI, resolved #Hypotension #Thrombocytopenia #?HIT #FIDEL with azotemia likely prerenal, improving -Underlying history of CKD stage IIIb?4 #GPC Bacteremia #Klebsiella UTI #Lactic acidosis, type A, resolved #NAGMA, resolved -Likely due to ARF #?CHF #Electrolyte disturbances #Pseudo hyponatremia, resolved #Hyperkalemia, resolve #Hyperglycemia,Resolved #Hypothermia, resolved #Elevated transaminases #Elevated T. bili #Hypertension #HLD #Generalized weakness #Osteoarthritis #Wheelchair-bound #Failure to thrive #PEG tube placed in december 2023 #Dementia #Insomnia #Generalized anxiety disorder #Sacral decubitus ulcer #Decubitus ulcer left hip Assessment and plan discussed with my attending physician Dr. Kennedy Bolaños (PGY-1)- Internal medicine resident Time Spent with Patient Time attestation: Total time spent providing and/or coordinating discharge services: Time spent: Greater than 30 minutes Quality: Stroke Pt Provided Written Stroke Discharge Instructions: No Exam Vital Signs Temp Pulse Resp BP Pulse Ox O2 Del Method O2 Flow Rate 97.6 F 105 H 20 146/70 H 99 Room Air 2 08/28/24 08:00 08/28/24 12:47 08/28/24 08:00 08/28/24 12:47 08/28/24 08:00 08/28/24 08:00 08/26/24 16:00 Narrative Exam GENERAL: elderly female, apears to more solmnent and minimally engaging in conversations NEURO: no neurologic deficit noted HEENT: Atraumatic, Normocephalic. mucous membranes moist. Pt is legally blind HEART: Regular rate and regular rhythm. No murmurs/rubs/gallops, S1-S2 LUNGS: lungs are clear to auscultation ABDOMEN: soft, non-distended, non-tender, bowel sounds heard, no guarding or rebound tenderness, PEG tube in place SKIN: No Rash or ecchymoses, decubitus sacral ulcer EXTREMITIES: no tenderness, able to move all 4 extremities, pedal pulses palpated, multiple bruising from fall. trace bilateral edema Discharge Plan Plan Patient Disposition: HOME (Self Care) Disposition Comment: Hospitalist admit Dr. Díaz to consult Care Plan Goals: -Follow up with your primary care within 2 weeks after discharge -Continue the antibiotics for one more day -Continue the remainder of your medications as prescribed -Follow up with cardiology outpatient for an updated echo -If your symptoms return or worsen promptly return to the ED Prescriptions/Referrals Prescriptions/Med Rec: New buspirone 10 mg tablet 10 mg feeding tube HS Qty: 60 0RF metoprolol tartrate 25 mg tablet 25 mg PO BID Qty: 30 0RF Rx Instructions: Hold if HR below 60 bpm hydrochlorothiazide 12.5 mg tablet 12.5 mg PO QAM Qty: 60 0RF Rx Instructions: Hold if SBP BELOW 100 amlodipine 5 mg tablet 5 mg PO QDAY Qty: 60 0RF Rx Instructions: Hold if SBP below 100 Continued simvastatin [Zocor] 40 MG tablet 40 mg feeding tube QPM Qty: 0 raloxifene [Evista] 60 MG tablet 60 mg feeding tube QAM Qty: 0 tramadol 50 mg tablet 100 mg feeding tube Q12H donepezil 5 mg tablet 10 mg PO QDAY ferrous sulfate [FeroSul] 325 mg (65 mg iron) Tablet 325 mg feeding tube QDAY misoprostol 200 mcg tablet 200 mcg feeding tube TID pantoprazole [Protonix] 40 mg tablet,delayed release (DR/EC) 40 mg PO QDAY Qty: 30 0RF ascorbic acid (vitamin C) [Vitamin C] 500 mg Tablet 500 mg PO QDAY fenofibrate 54 mg tablet 54 mg feeding tube .qpmac Belsomra 15 mg tablet 20 mg PO QDAY furosemide 20 mg tablet 20 mg PO QDAY PRN (Reason: fluid overload) famotidine 20 mg tablet 20 mg PO QDAY Eliquis 5 mg tablet 5 mg PO Q12H Rexulti 2 mg tablet 2 mg PO HS memantine 10 mg tablet 10 mg PO BID Discontinued mirtazapine 15 mg tablet 15 mg feeding tube QPM Eliquis DVT-PE Treat 30D Start 5 mg (74 tabs) tablets,dose pack 5 mg PO BID Qty: 74 0RF Rx Instructions: ON HOLD TILL 12/31/23, DUE TO KNEE SWELLING take 10 mg po bid for 7 days, then 5 mg po bid gabapentin 300 mg Capsule 300 mg PO TID Rx Instructions: taken PRN for pain per daughter trazodone 50 mg tablet 50 mg feeding tube HS buspirone 15 mg tablet 15 mg feeding tube TID Rexulti 0.5 mg tablet 0.5 mg feeding tube QPM amlodipine 5 mg tablet 2.5 mg PO QDAY metoprolol succinate 25 mg tablet extended release 24 hr 25 mg PO QDAY hydrochlorothiazide 12.5 mg capsule 12.5 mg PO .@1200 Referrals: Gilbert Hendricks MD [Primary Care Provider] - Patient/Caregiver Discharge Instructions Print Language: Taiwanese Stand Alone Forms: [employer] Award Info., Patient Portal Info Letter Discharge Order Discharge Orders: Discharge (Routine); Ordered 08/28/24 Ordered By: Colby Kahn Quality Discharge Quality Measures none MD Attestestation MD Attestation I have discussed and was present for the essential components of the discharge history, physical examination, diagnosis, and discharge treatment plan with the resident. I agree with the patient's discharge care as documented by the resident and amended herein by me. Mark Benavides DO. The patient understood all discharge instructions, all questions were answered satisfactorily. The patient was instructed to return to the Emergency Department is symptoms worsened or persisted. Although this document has been carefully reviewed, there may still be some phonetic and other typographical errors. These errors are purely grammatical due to imperfections in the software program and should not be construed in any way to compromise the substance of the patient's medical care during this visit.
--- NOTE | 2024-08-28 15:14 | PC.SS ---
Rounding Note: Plan is to d/c the patient home today with home health.
== END 2024-08-28 17:14 | disposition home or self-care (01) | DRG 377 ==
LOC: SERX 12:08 → SERHOLD 12:40 → S2NX 08-23 01:40
PROVIDERS: Internal Medicine Infectious Disease; Specialist; Student in an Organized Health Care Education/Training Program; Admitting Provider Student in an Organized Health Care Education/Training Program; Emergency Provider Emergency Medicine; PCP Family Medicine; Visit Provider Student in an Organized Health Care Education/Training Program
PROC: 0DP68UZ Removal of Feeding Device from Stomach, Via Natural or Artificial Opening Endoscopic (ICD-10-PCS; CPT 43239; principal; 2024-08-23 13:15)
PROC: 0DH63UZ Insertion of Feeding Device into Stomach, Percutaneous Approach (ICD-10-PCS; CPT 43246; 2024-08-23 13:15)
PROC: 0DJD8ZZ Inspection of Lower Intestinal Tract, Via Natural or Artificial Opening Endoscopic (ICD-10-PCS; CPT 45378; principal; 2024-08-24 16:00)
DX: K29.71 Gastritis, unspecified, with bleeding (principal); J18.9 Pneumonia, unspecified organism; D62 Acute posthemorrhagic anemia; N39.0 Urinary tract infection, site not specified; N17.9 Acute kidney failure, unspecified; E87.20 Acidosis, unspecified; I13.0 Hypertensive heart and chronic kidney disease with heart failure and stage 1 through stage 4 chronic kidney disease, or unspecified chronic kidney disease; D68.9 Coagulation defect, unspecified; E87.0 Hyperosmolality and hypernatremia; F02.C18 Dementia in other diseases classified elsewhere, severe, with other behavioral disturbance; G93.49 Other encephalopathy; K57.31 Diverticulosis of large intestine without perforation or abscess with bleeding; E87.5 Hyperkalemia; I50.9 Heart failure, unspecified; N18.32 Chronic kidney disease, stage 3b; E78.5 Hyperlipidemia, unspecified; K64.8 Other hemorrhoids; M19.90 Unspecified osteoarthritis, unspecified site; K62.1 Rectal polyp; R62.7 Adult failure to thrive; F41.1 Generalized anxiety disorder; G47.00 Insomnia, unspecified; L89.159 Pressure ulcer of sacral region, unspecified stage; L89.229 Pressure ulcer of left hip, unspecified stage; D69.6 Thrombocytopenia, unspecified; E86.1 Hypovolemia; E87.6 Hypokalemia; E87.8 Other disorders of electrolyte and fluid balance, not elsewhere classified; R73.9 Hyperglycemia, unspecified; K74.60 Unspecified cirrhosis of liver; I95.9 Hypotension, unspecified; I48.0 Paroxysmal atrial fibrillation; D53.9 Nutritional anemia, unspecified; T68.XXXA Hypothermia, initial encounter; I25.118 Atherosclerotic heart disease of native coronary artery with other forms of angina pectoris; B96.1 Klebsiella pneumoniae [K. pneumoniae] as the cause of diseases classified elsewhere; K21.9 Gastro-esophageal reflux disease without esophagitis; Z99.3 Dependence on wheelchair; Z79.899 Other long term (current) drug therapy; Z79.01 Long term (current) use of anticoagulants; Z99.2 Dependence on renal dialysis; Z93.1 Gastrostomy status; Z74.01 Bed confinement status; Z78.1 Physical restraint status; Z86.711 Personal history of pulmonary embolism; R04.0 Epistaxis
CPT/HCPCS: 36415; 36430; 36600; 70450; 71045; 71250; 74176; 80053; 80074; 80202; 81001; 82010; 82140; 82436; 82570; 82607; 82728; 82746; 82803; 83036; 83540; 83550; 83605; 83735; 83880; 84100; 84132; 84133; 84145; 84295; 84300; 84443; 85014; 85018; 85025; 85610; 85730; 86022; 86780; 86850; 86900; 86901; 86923; 86965; 87040; 87077; 87081; 87086; 87186; 93005; 93970; 94644; 96361; 96365; 96367; 96372; 96375; 99291; A4216; A4649; A9270; J0612; J0696; J1200; J1643; J1815; J1940; J2250; J2470; J3010; J3370; J3490; J7050; J7120; J7168; P9016; P9035